=== PATIENT | male | born 1945 | race Caucasian/White ===

== ENCOUNTER 2016-08-10 15:13 | Emergency (ER) | payer OTHER, MEDICARE ==
[~2016-08-10] VITALS: Ht 167.6 cm; Wt 80.0 kg
[~2016-08-10 15:13] MED LIST: ACET-1256 PO; ADVIN25050 INH; ALBUAER2 INH; ATV1 PO; CRS10 PO; LRT5 PO; OXYC-57 PO
[2016-08-10 15:17] VITALS: TEMP 36.9; Ht 167.6 cm; Wt 80.0 kg
[2016-08-10] MEDS ORDERED: ADVIN50050 INH (15:32)
[2016-08-10] MEDS ORDERED: PRVHFAIN INH (15:32)
[2016-08-10] MEDS ORDERED: PRAV20TA PO (15:32)
[2016-08-10] MEDS ORDERED: MELO7.5T5 PO (15:32)
[2016-08-10] MEDS ORDERED: OXYCODONE HCL IR 5 MG TAB (IMMEDIATE RELEASE) PO STA (15:41)
[2016-08-10] MEDS ORDERED: DEXAMETHASONE SOD INJ 10 MG/ML VIAL IM ONE (17:30)
[2016-08-10 17:31] VITALS: BP 147/86; PULSE 67; O2SAT 95
[2016-08-10] MEDS ORDERED: OXYC1TAB3 PO (17:41)
--- NOTE | 2016-08-10 17:46 | EMERGENCY ROOM VISIT NOTE ---
History First contact with patient: 15:26 Chief Complaint: BACK PAIN Stated Complaint: BACK AND KNEE PAIN - RIGHT History of Present Illness The patient is a 71 year old male who presents to the Emergency Room with complaints of severe low back pain and pain radiating down his left leg. The patient states that the pain started 2 weeks ago. The patient has had back surgery by Dr. Park in 2011. He was having recurrent back pain in April of last year and went to Dr. Park. He had an MRI performed at [facility] and Dr. Park told him that he needed surgery. The patient did not want surgery and therefore they gave him an injection of steroids into his back. The patient states that Dr. Park told him he could have 2 more injections in his back if he needed them for pain relief. In the interim the patient started having severe right knee pain and went to see Dr. Guevara and is scheduled for a total knee replacement on September 22. The patient also states that he had a steroid injection into his right knee by Dr. Guevara. The patient states that for the past 2 weeks he has had progressive pain in the low back radiating down his left leg to his knee. He states he cannot get comfortable. He states it hurts to sit or lay down. He is very active and has not even been out of the house for the past several days due to the pain. He did not try and contact Dr. Park. The patient took one of a family member's Percocet for pain with some relief. He last had a Percocet at 8:30 this morning. Review of Systems 10 system review was performed and was negative unless stated otherwise history of present illness. Social History Smoking Status: Current Every Day Smoker Smokeless Tobacco Use: No Alcohol Use: occasionally Drug Use: none Marital Status: in relationship Housing Status: lives with significant other Occupation Status: employed Current/Historical Medications Scheduled Fluticasone Prop/Salmeterol (Advair Diskus 500-50 Mcg/Dose), 1 PUFF INH BID Meloxicam (Mobic), 15 MG PO QPM Pravastatin (Pravachol ), 10 MG PO DAILY Scheduled PRN Albuterol (Ventolin Hfa), 1 PUFF INH Q4 PRN for SOB/Wheezing Allergies Coded Allergies: Morphine (Verified Adverse Reaction, Severe, SEVERE DROP IN BP, 08/10/16) Physical Exam Vital Signs Date Time Temp Pulse Resp B/P Pulse Ox O2 Delivery O2 Flow Rate FiO2 08/10/16 17:31 67 18 147/86 95 Room Air 08/10/16 15:17 36.9 77 20 184/93 93 Room Air Physical Exam PHYSICAL EXAM: Vital Signs normal: Reviewed Nurse's notes and agree. GENERAL: 71-year-old white male appears uncomfortable secondary to back pain. MENTAL STATUS: Alert and oriented in no acute distress. LUMBAR SPINE: No gross bony abnormality noted. Patient is nontender to palpation over the spinous processes. He is tender to palpation over the left paravertebral region, right side nontender. He has limited range of motion in all directions secondary to pain. Muscle strength is 5 out of 5 bilateral lower extremities and symmetrical. Limited exam secondary to pain. Positive straight leg raise bilaterally. Medical Decision & Procedures Medications Administered Medications (Trade) Dose Ordered Sig/Crystal Route Start Time Stop Time Status Last Admin Dose Admin Oxycodone HCl (Roxicodone Immediate Rel Tab) 10 mg NOW STAT PO 08/10/16 15:41 08/10/16 15:42 DC 08/10/16 15:45 10 MG Dexamethasone Sodium Phosphate (Decadron Inj) 10 mg NOW ONCE IM 08/10/16 17:30 08/10/16 17:31 DC 08/10/16 17:30 10 MG ED Course The patient was evaluated. The patient's EMR was reviewed. The patient was given OxyIR 10 mg by mouth. I consulted Dr. Park. I spoke with Dr. Park about the patient's situation. He said it would not hinder the patient from getting subsequent steroid injections in his back if I gave him steroids today in the emergency room. He also stated that the patient has 2 options 1 is to have the knee surgery as scheduled and follow-up with Dr. Zambrano for another injection into his back in the interim. The second option would be to see Dr. Park for surgery and postpone the knee surgery. These treatments options were discussed with the patient. He states he wants a day to think about it. The patient was given Decadron 10 mg IM. The patient was reevaluated and stated the pain was now tolerable and was discharged home in stable condition. Medical Decision The patient presented with a known surgical back who has refused surgery in the past therefore no additional diagnostic imaging was performed. Impression Primary Impression: Lumbar back pain with radiculopathy affecting left lower extremity Departure Information Dispostion Home / Self-Care Condition GOOD Prescriptions Oxycodone Immediate Rel Tab (ROXICODONE IR) 5 Mg Tab 1-2 TAB PO Q4H Y for Pain, #36 TAB Prov: Fifi Pollack PA-C 08/10/16 Referrals Urbano Bethea PA-C (PCP) Forms HOME CARE DOCUMENTATION FORM, IMPORTANT VISIT INFORMATION Patient Instructions [facility] Additional Instructions Tylenol as needed for pain. Take OxyIR as directed for more severe pain. Do not drive while taking the OxyIR. If you decide to go ahead with the knee surgery as planned, call Dr. Zambrano for a steroid injection into her back. If you decide to postpone the knee surgery and consider having back surgery, call Dr. Park for an appointment.
--- NOTE | 2016-08-10 18:00 | EMERGENCY ROOM VISIT NOTE ---
ED Visit Note First contact with patient: 15:26 I did evaluate and examine this patient myself. I did guide management for the patient. I agree with the PA's assessment as discussed. Please see the PAs dictation for further details. Patient was treated with oxycodone. The case was discussed with Dr. Park for outpatient management. The patient was discharged with prescription for oxycodone.
[2016-08-19] MEDS ORDERED: ADVIN50/60 INH (13:34)
[2016-08-19] MEDS ORDERED: PRAV20TA PO (13:34)
[2016-08-19] MEDS ORDERED: SENN-65 PO (13:35)
[2016-08-26] MEDS ORDERED: RXC5 PO (08:11)
[2016-11-12] MEDS ORDERED: ACET-1256 PO (13:25)
== END 2016-08-10 18:04 | disposition home or self-care (01) ==
LOC: C.EDB 15:15 → C.EDD 18:04
DX: M54.16 Radiculopathy, lumbar region (principal); F17.200 Nicotine dependence, unspecified, uncomplicated; Z79.899 Other long term (current) drug therapy; Z88.5 Allergy status to narcotic agent

== ENCOUNTER 2016-08-24 07:22 | Inpatient (IN) | payer OTHER, MEDICARE ==
[2016-08-19 13:36] VITALS: BMI 28.0
--- NOTE | 2016-08-19 14:12 | PAT Medication Instructions ---
Service Date Aug 19, 2016. Current Home Medication List Fluticasone Prop/Salmeterol (Advair Diskus 500/50 60 Dose), 1 PUFF INH BID Meloxicam (Mobic), 15 MG PO QPM Oxycodone Immediate Rel Tab (Roxicodone Ir), 1-2 TAB PO Q4H PRN for Pain Pravastatin (Pravachol ), 10 MG PO QPM Senna/Docusate Sod (Senokot S), 1 TAB PO PRN Medication Instructions For Your Scheduled Surgery - Check with surgeon for instructions: Meloxicam (Mobic), 15 MG PO QPM - Hold the following medications the morning of surgery: Senna/Docusate Sod (Senokot S), 1 TAB PO PRN' - Take the following medications the morning of surgery with a sip of water: Fluticasone Prop/Salmeterol (Advair Diskus 500/50 60 Dose), 1 PUFF INH BID Oxycodone Immediate Rel Tab (Roxicodone Ir), 1-2 TAB PO Q4H PRN for Pain (okay to take up to 4 hours prior to surgery if needed) - Take the following medications as scheduled the night before surgery: Senna/Docusate Sod (Senokot S), 1 TAB PO PRN' Pravastatin (Pravachol ), 10 MG PO QPM Fluticasone Prop/Salmeterol (Advair Diskus 500/50 60 Dose), 1 PUFF INH BID Oxycodone Immediate Rel Tab (Roxicodone Ir), 1-2 TAB PO Q4H PRN for Pain If you have any questions please call us at [phone] (Christine Minor PA-C ) or [phone] or [phone]
[2016-08-19 14:49] LABS: BASO % 0.4 %; BASO ABS # 0.03 K/uL (0-0.2); COMPLETE YES; EOS % 2.1 %; HEMATOCRIT 41.3 % (42-52); IG% 0.1 %; LYMPH % 29.7 %; LYMPH ABS # 2.13 K/uL (1.2-3.4); MEAN CELL VOLUME 91.6 fL (80-100); MEAN CORPUSCULAR HGB CONC 36.1 g/dl (32-36); MEAN PLATELET VOLUME 9.3 fL (7.4-10.4); MONO % 8.5 %; NEUT % 59.2 %; PLATELET COUNT 190 K/uL (130-400); RED BLOOD COUNT 4.51 M/uL (4.7-6.1); WHITE BLOOD COUNT 7.18 K/uL (4.8-10.8)
--- NOTE | 2016-08-19 14:52 | DIAGNOSTIC IMAGING REPORT ---
CHEST PREADMISSION(PA/LAT) CLINICAL HISTORY: Preoperative evaluation. COMPARISON STUDY: Chest radiograph September 25, 2010. FINDINGS: Incidental note is made of an anterior cervical spine fusion. There is no pneumothorax or pleural effusion. Marked elevation/eventration of the right hemidiaphragm is unchanged since study of September 25, 2010. Cardiac size is stable. There is no evidence of pulmonary edema. IMPRESSION: 1. No acute findings. 2. Stable marked elevation/eventration of the right hemidiaphragm since study of September 25, 2010. Electronically signed by: Erlin Phelan M.D. 08/19/2016 2:51 PM Dictated Date/Time: 08/19/2016 2:50 PM
[2016-08-19 14:54] LABS: URINE APPEARANCE CLEAR (CLEAR); URINE BILIRUBIN NEG (NEG); URINE COLOR YELLOW; URINE NITRITE NEG (NEG); URINE PH 5.5 (4.5-7.5); URINE SPECIFIC GRAVITY 1.021 (1.000-1.030); UROBILINOGEN NEG (NEG)
[2016-08-19 15:01] LABS: MANUAL MICROSCOPIC REQUIRED? NO; REVIEW REQ? NO
[2016-08-19 15:09] LABS: BUN/CREATININE RATIO 21.1 (10-20); CALCIUM 9.3 mg/dl (8.5-10.1); CREATININE 0.9 mg/dl (0.60-1.40)
[~2016-08-24] VITALS: Ht 165.1 cm; Wt 74.4 kg
[2016-08-24] VITALS (10 sets, daily range): BP systolic 107–163; BP diastolic 60–83; PULSE 52–75; TEMP 36.5–37; O2SAT 94–100; Ht 165.1 cm; Wt 74.4 kg
[~2016-08-24 07:22] MED LIST changes: -ACET-1256 PO; -ADVIN25050 INH; +ADVIN50/60 INH; -ALBUAER2 INH; -ATV1 PO; +CEFAZOLIN 1000MG/55 ML D5W IV SCH; -CRS10 PO; +LACTATED RINGER'S 1000ML 1,000 ML IV SCH; -LRT5 PO; +MELO7.5T5 PO; -OXYC-57 PO; +OXYC1TAB3 PO; +PRAV20TA PO; +SENN-65 PO
--- NOTE | 2016-08-24 07:31 | History & Physical Bridge Note ---
H&P Re-Evaluation Bridge Note: I have examined the patient, reviewed the History & Physical and in the interval since the performance of the History & Physical I have noted the following changes of clinical significance: No changes noted
--- NOTE | 2016-08-24 07:32 | History and Physical ---
History & Physical Date Aug 24, 2016. Chief Complaint back and leg pain History of Present Illness The patient is a 71 year old male with complaints of Additional History Hepatic Disease: No Endocrine Disorder: No Kidney Disease: No Hypertension: No Heart Disease: No Bleeding Tendencies: No Infectious Diseases: No Allergies Coded Allergies: Acetaminophen (Unverified Allergy, Unknown, per PCP note- patient taking Oxycodone, 08/20/16) Moxifloxacin (Unverified Allergy, Unknown, rash per PCP note, 08/20/16) Oxycodone (Unverified Allergy, Unknown, per PCP note- patient taking Oxycodone, 08/20/16) Morphine (Verified Adverse Reaction, Severe, SEVERE DROP IN BP, 08/19/16) Home Medications Scheduled Fluticasone Prop/Salmeterol (Advair Diskus 500/50 60 Dose), 1 PUFF INH BID Meloxicam (Mobic), 15 MG PO QPM Pravastatin (Pravachol ), 10 MG PO QPM Senna/Docusate Sod (Senokot S), 1 TAB PO PRN Scheduled PRN Oxycodone Immediate Rel Tab (Roxicodone Ir), 1-2 TAB PO Q4H PRN for Pain Physical Examination Skin: warm/dry, no rash Eyes: normal inspection, EOMI, sclerae normal ENT: normal ENT inspection, pharynx normal Head: normocephalic, atraumatic Neck: supple, no adenopathy, trachea midline Respiratory/Chest: lungs clear, normal breath sounds, no respiratory distress Cardiovascular: regular rate, rhythm, no edema, no murmur Abdomen / GI: normal bowel sounds, non tender Back: normal inspection Extremities: normal inspection, normal range of motion Neurologic/Psych: no motor/sensory deficits, alert, normal reflexes, oriented x 3 Diagnosis spinal stenosis Plan of Treatment removal inst L4-S1 decompression fusion L2_4
[2016-08-24] MEDS ORDERED: FENTANYL CITRATE INJ 50 MCG/1 ML 2 ML VIAL ONE ×2 (08:36→08:37)
[2016-08-24] MEDS ORDERED: MIDAZOLAM HCL 1 MG/ML 2ML VIAL ONE (08:37)
[2016-08-24] MEDS ORDERED: HYDROmorphone INJ 1 MG/ML SYR IV PRN (10:45)
[2016-08-24] MEDS ORDERED: MEPERIDINE HCL 25 MG/ML CARP IV PRN (10:45)
[2016-08-24] MEDS ORDERED: LABETALOL HCL IV 5 MG/ML 20ML IV PRN (10:45)
[2016-08-24] MEDS ORDERED: ONDANSETRON INJ 2 MG/ML 2 ML VIAL IV PRN (10:45)
[2016-08-24] MEDS ORDERED: EpHEDrine SULFATE INJ 50 MG/ML AMP IV PRN (10:45)
[2016-08-24] MEDS ORDERED: ATROPINE SULFATE 0.1 MG/ML 5ML SYR IV PRN (10:45)
[2016-08-24] MEDS ORDERED: ONDANSETRON INJ 2 MG/ML 2 ML VIAL ONE (11:16)
[2016-08-24] MEDS ORDERED: LIDOCAINE HCL 2% 2 ML VIAL (20MG/ML) ONE (11:16)
[2016-08-24] MEDS ORDERED: PROPOFOL IV EMULSION 10 MG/ML 20 ML VIAL IV ONE (11:16)
[2016-08-24] MEDS ORDERED: GLYCOPYRROLATE INJ 0.2 MG/ML VIAL ONE (11:16)
[2016-08-24] MEDS ORDERED: LARYING-O-JET KIT (LTA) EXT ONE ×2 (11:16)
[2016-08-24] MEDS ORDERED: NEOSTIGMINE METHYLSULFATE 5 MG/5 ML SYR ONE (11:16)
[2016-08-24] MEDS ORDERED: EpHEDrine SULFATE 50MG/5ML SYR ONE (11:16)
[2016-08-24] MEDS ORDERED: DEXAMETHASONE SOD INJ 4 MG/ML VIAL ONE (11:16)
[2016-08-24] MEDS ORDERED: ROCURONIUM BROMIDE 10 MG/ML 5 ML VIAL ONE (11:16)
[2016-08-24] MEDS ORDERED: CEFAZOLIN SOD 1 GM VIAL ONE (11:16)
[2016-08-24] MEDS ORDERED: HYDROmorphone INJ 2 MG/ML SYR/VIAL ONE (11:17)
[2016-08-24] MEDS ORDERED: BUPIVACAINE/EPINEPHRINE 0.5% MPF 1:200,000 30 ML VIAL INJ ONE (12:11)
[2016-08-24] MEDS ORDERED: BACITRACIN 50000 UNIT VIAL IR ONE (12:11)
[2016-08-24] MEDS ORDERED: FLOSEAL HEMOSTATIC MATRIX 10ML TOP ONE (12:58)
--- NOTE | 2016-08-24 12:58 | DIAGNOSTIC IMAGING REPORT ---
Lumbar spine LUMBAR SPINE 2 OR 3 VIEW CLINICAL HISTORY: L2-L4 DECOMPRESSION/FUSION L4-S1 HARDWARE REMOVAL hardware removal TECHNIQUE: Image intensifier COMPARISON STUDY: None FINDINGS: Findings of a posterior laminectomy and fusion from L2 through L4. Disc spaces are present from L3 through S1. IMPRESSION: Image intensifier views of the low lumbar spine for intraoperative guidance Electronically signed by: Russell Pollack M.D. 08/24/2016 12:57 PM Dictated Date/Time: 08/24/2016 12:55 PM
[2016-08-24] MEDS ORDERED: SODIUM CHLORIDE 0.9% 1000ML 1,000 ML IV SCH (13:07)
--- NOTE | 2016-08-24 13:07 | [facility] Post Operative Brief Note ---
Immediate Operative Summary Operative Date Aug 24, 2016. Pre-Operative Diagnosis Spinal Stenosis Post-Operative Diagnosis Spinal Stenosis Procedure(s) Performed Hardware removal L4-S1, Decompression/Fusion L2-L4, Interbody Cage at L3-L4, Use of Infuse Surgeon Dr. Park Retort Engineer Surgeon(s) none Estimated Blood Loss 200 cc Findings stenosis Specimens A: Explanted hardware
[2016-08-24] MEDS ORDERED: hydrOXYzine HCL 25 MG TAB PO PRN (13:15)
[2016-08-24] MEDS ORDERED: MAGNESIUM HYDROXIDE SUSP 30 ML UDC PO PRN ×2 (13:15)
[2016-08-24] MEDS ORDERED: LORAZEPAM 0.5 MG TAB PO PRN (13:15)
[2016-08-24] MEDS ORDERED: LORAZEPAM INJ 0.5 MG in SYRINGE 0.75 ML IV PRN (13:15)
[2016-08-24] MEDS ORDERED: BISACODYL 10 MG SUPP PR PRN ×2 (13:15)
[2016-08-24] MEDS ORDERED: DO NOT ADMINISTER FLU VACCINE PRN ×3 (13:15)
[2016-08-24] MEDS ORDERED: ALUMINUM/MAGNESIUM SUSP 30 ML UDC PO PRN (13:15)
[2016-08-24] MEDS ORDERED: SOD PHOSPHATE/SOD BIPHOSPHATE ENEMA 132 ML BTL PR PRN ×2 (13:15)
[2016-08-24] MEDS ORDERED: FAMOTIDINE 20 MG TAB PO PRN (13:15)
[2016-08-24] MEDS ORDERED: METOCLOPRAMIDE HCL INJ 5 MG/ML 2 ML VIAL IV PRN (13:15)
[2016-08-24] MEDS ORDERED: PROMETHAZINE HCL INJ 12.5 MG in SODIUM CHLORIDE 0.9% 50ML 50 ML IV PRN (13:15)
[2016-08-24] MEDS ORDERED: NALOXONE HCL 0.4 MG/1 ML VIAL/CARP IV PRN ×3 (13:15)
[2016-08-24] MEDS ORDERED: DO NOT ADMINISTER PNEUMOCOCCAL VACCINE PRN ×2 (13:15)
[2016-08-24] MEDS ORDERED: HYDROmorphone HCL 0.5MG/ML 50 ML CASSETTE ONE (13:21)
[2016-08-24] MEDS: HYDROmorphone HCL 0.5MG/ML 50 ML CASSETTE IV PRN ×4 (13:30→23:03)
[2016-08-24] MEDS: FENTANYL CITRATE INJ 50 MCG/1 ML 2 ML VIAL IV PRN ×2 (13:33→13:43)
--- NOTE | 2016-08-24 14:20 | Anesthesiology Progress Note ---
Anesthesia Post Op Note Date & Time Aug 24, 2016 at 14:20 Vital Signs Pain Intensity: 4 Vital Signs Past 12 Hours Date Time Temp Pulse Resp B/P Pulse Ox O2 Delivery O2 Flow Rate FiO2 08/24/16 14:15 60 13 119/72 95 Nasal Cannula 4 08/24/16 14:05 36.1 60 19 114/66 95 Nasal Cannula 4 08/24/16 13:55 58 14 101/62 93 Nasal Cannula 4 08/24/16 13:45 63 12 81/53 95 Nasal Cannula 4 08/24/16 13:35 61 15 116/62 96 Mask 10 08/24/16 13:25 52 12 121/63 99 Mask 10 08/24/16 13:15 36.2 50 12 130/72 98 Mask 10 08/24/16 08:03 36.8 60 20 163/83 95 Room Air Notes Mental Status: alert / awake / arousable, participated in evaluation Pt Amnestic to Procedure: Yes Nausea / Vomiting: adequately controlled Pain: adequately controlled Airway Patency, RR, SpO2: stable & adequate BP & HR: stable & adequate Hydration State: stable & adequate Anesthetic Complications: no major complications apparent
[2016-08-24] MEDS: LACTATED RINGER'S 1000ML 1,000 ML IV SCH ×2 (14:27→20:39)
--- NOTE | 2016-08-24 15:42 | OPERATIVE REPORT ---
DATE OF OPERATION: 08/24/2016 PREOPERATIVE DIAGNOSIS: Spinal stenosis. POSTOPERATIVE DIAGNOSIS: Same. PROCEDURES PERFORMED: 1. Removal of posterior instrumentation, L4-L5 and L5-S1. 2. Exploration of fusion, L4-L5 and L5-S1. 3. Lumbar decompression, medial facetectomies, and foraminotomies, L2-L3 and L3-L4. 4. Posterior spinal fusion, L2-L3 and L3-L4. 5. Placement of posterior segmental instrumentation using Orthros rods and screws, L2-L3 and L3-L4. 6. Placement of interbody fusion, L3-L4. 7. Placement of PEEK cage 12 x 22 mm at L3-L4. 8. Placement of locally harvested morcellized autograft in the posterior gutters. 9. Placement of Infuse collagen sponge and Mastergraft in the posterior gutters and DBM in the interbody space. SURGEON: Dr. Govind Park. SLEEVE SETTER LOCKSTITCH: None. ANESTHESIA: General. DISPOSITION: The patient awakened and taken to PACK in stable condition. HISTORY OF PATIENT'S PROBLEMS: A 71-year-old male who presents with above-mentioned diagnosis. After failing an extensive course of nonoperative care, he elected to undergo the above-mentioned procedures. Risks, benefits, pros, cons, and alternatives were outlined in detail preoperatively. DESCRIPTION OF PROCEDURE: The patient was met with preoperatively, case discussed and all questions were addressed. At that point, the patient was taken back to operative suite and after undergoing successful general intubation by the department of anesthesia, he was placed in prone position on Wm table atop a Adarsh frame. All bony prominences were well padded and the eyes were inspected to ensure there was no external pressure placed upon them. At this point, lumbar spine was prepped and draped in normal sterile fashion. Sharp dissection with the assistance of Bovie cautery was performed down to and exposing the lamina and transverse processes of L2, L3, and instrumentation at L3, L4, L5 and S1 levels bilaterally. I then proceeded with the hardware bilaterally exploring the fusion mass and noting it to be intact. I then performed a complete laminectomy of L3 and L2 with caudocephalad fashion addressing severe lateral recess stenosis, particularly foraminal disease of L3 on the left. After this was complete, pedicle screws were then placed in L2, L3, and L4 bilaterally with assistance of fluoroscopy and the appropriately sized corinna provisionally placed. Through a transforaminal approach on the left, a complete diskectomy was performed. Endplates were curetted to subcortical bleeding bone and a 12 x 22 mm PEEK cage filled with DBM tapped into position. Rods were then locked into final position bilaterally and transverse processes of L2, L3, and L4 burred to subcortical bleeding bone. Infuse collagen sponge combined with Mastergraft and locally harvested morselized autograft was placed in the posterior gutters. A 7 flat RENNY drain was inserted. Incision was closed with 1-0 Vicryl in the fascia, 2-0 Vicryl subcutaneously, and 4-0 Monocryl for final skin closure. Steri-Strips and sterile dressing placed. The patient was awakened and taken to PACU in stable condition. I attest to the content of the Intraoperative Record and any orders documented therein. Any exceptio ns are noted below.
[2016-08-24] MEDS: CEFAZOLIN IV 2,000 MG in DEXTROSE 5% 50ML 50 ML IV SCH (17:37)
[2016-08-24] MEDS: DEXAMETHASONE INJ 6 MG in SYRINGE 0 ML IV SCH (18:34)
[2016-08-24] MEDS: ONDANSETRON INJ 2 MG/ML 2 ML VIAL IV PRN (18:39)
[2016-08-24] MEDS: FLUTICASONE/SALMETEROL (ADVAIR) 500/50 INH 14 PUFF INH SCH (20:32)
[2016-08-24] MEDS: DOCUSATE SODIUM/SENNA 50/8.6MG TAB PO SCH (20:38)
[2016-08-24] MEDS: PRAVASTATIN SOD 20 MG TAB PO SCH (20:38)
[2016-08-24] MEDS ORDERED: DOCUSATE SODIUM/SENNA 50/8.6MG TAB PO SCH (21:00)
[2016-08-25] VITALS (9 sets, daily range): BP systolic 96–132; BP diastolic 50–72; PULSE 64–84; TEMP 36.6–36.9; O2SAT 90–98
[2016-08-25] MEDS: CEFAZOLIN IV 2,000 MG in DEXTROSE 5% 50ML 50 ML IV SCH (02:29)
[2016-08-25] MEDS: LACTATED RINGER'S 1000ML 1,000 ML IV SCH (02:29)
[2016-08-25] MEDS: DEXAMETHASONE INJ 6 MG in SYRINGE 0 ML IV SCH ×2 (02:29→11:11)
[2016-08-25 05:48] LABS: COMPLETE YES; HEMATOCRIT 30.7 % (42-52); IG% 0.2 %; LYMPH % 7.2 %; MEAN CORPUSCULAR HEMOGLOBIN 32.3 pg (25-34); MEAN CORPUSCULAR HGB CONC 35.8 g/dl (32-36); MEAN PLATELET VOLUME 9.5 fL (7.4-10.4); MONO % 2.3 %; NEUT % 90.3 %; PLATELET COUNT 174 K/uL (130-400); RED BLOOD COUNT 3.41 M/uL (4.7-6.1); WHITE BLOOD COUNT 12.51 K/uL (4.8-10.8)
[2016-08-25] MEDS ORDERED: HYDROmorphone INJ 0.5 MG/0.5 ML SYR IV PRN (06:00)
[2016-08-25] MEDS ORDERED: HYDROCODONE/ACETAMOPHEN 5/325MG TAB PO PRN (06:00)
[2016-08-25] MEDS ORDERED: DC PCA SCH (06:00)
[2016-08-25 06:16] LABS: BUN/CREATININE RATIO 19.6 (10-20); CALCIUM 7.9 mg/dl (8.5-10.1); CREATININE 0.84 mg/dl (0.60-1.40); POTASSIUM 4.3 mmol/L (3.5-5.1)
[2016-08-25] MEDS ORDERED: NURSING VERBAL MED ORDER ONE (06:45)
[2016-08-25] MEDS: FLUTICASONE/SALMETEROL (ADVAIR) 500/50 INH 14 PUFF INH SCH ×2 (07:40→19:10)
[2016-08-25] MEDS: ONDANSETRON INJ 2 MG/ML 2 ML VIAL IV PRN (07:46)
[2016-08-25] MEDS ORDERED: HYDROmorphone INJ 1 MG/ML SYR IV PRN (08:00)
[2016-08-25] MEDS ORDERED: OPTIRAY 320 IV PRN (09:00)
--- NOTE | 2016-08-25 09:01 | Medical Consult ---
Consultation Date of Consultation: Aug 25, 2016. Attending Physician: Govind Park D.O. History of Present Illness This is a 71 yo M who underwent L2-L4 spinal decompression and fusion/ L4-S1 hardware removal on 08/25/[address] Govind Garzon, known COPD, chronic tobacco abuse, hyperlipidemia, and gout who developed chest discomfort and shortness of breath at rest around 0800 today. Medicine was consulted to evaluate for chest pain. The patient has not been on anticoagulation since spinal surgery yesterday and recieved a dose of Dilaudid 1 mg IV prior to my evaluation. While at bedside the patient reports chest discomfort but that he feels he needs to cough, and cannot get out sputum. He denies acute chest pain. He is wearing 3 L O2 via NC and feels better with this, prior to supplemental o2 he was 90% on room air. Pt admits to feeling a little lightheaded with deep breaths. He also admits to feeling nauseous this morning but that this is currently resolved. He denies palpitations, headache, weakness, dizziness. Past Medical/Surgical History Medical Problems: (1) Lumbar back pain with radiculopathy affecting left lower extremity Status: Acute Social History Smoking Status: Current Every Day Smoker (Smokes 1 ppd since age 29.) Drug Use: none Marital Status: in relationship Housing Status: lives with significant other Occupation Status: employed Allergies Coded Allergies: Moxifloxacin (Unverified Allergy, Unknown, rash per PCP note, 08/24/16) Oxycodone (Unverified Allergy, Unknown, per PCP note- patient taking Oxycodone, 08/24/16) Morphine (Verified Adverse Reaction, Severe, SEVERE DROP IN BP, 08/24/16) Current Inpatient Medications Current Inpatient Medications Medications (Trade) Dose Ordered Sig/Crystal Route Start Time Stop Time Status Last Admin Dose Admin Dexamethasone Sodium Phosphate 6 mg/Syringe 1.5 ml @ 1 mls/min Q8H IV 08/24/16 19:00 08/25/16 11:02 08/25/16 02:29 1 MLS/MIN Promethazine HCl/ Sodium Chloride (Phenergan Inj/ Nss 50ml) 50.5 ml @ 202 mls/hr Q6H PRN IV 08/24/16 13:15 09/23/16 13:14 Ondansetron HCl (Zofran Inj) 4 mg Q6H PRN IV 08/24/16 13:15 09/23/16 13:14 08/25/16 07:46 4 MG Metoclopramide HCl (Reglan Inj) 10 mg Q6H PRN IV 08/24/16 13:15 09/23/16 13:14 Lorazepam 0.5 mg 0.5 mg Q8H PRN PO 08/24/16 13:15 09/23/16 13:14 Lorazepam/Syringe (Ativan Inj/ Syringe) 1 ml @ 1 mls/min Q8H PRN IV 08/24/16 13:15 09/23/16 13:14 Pneumococcal Polysaccharide Vaccine 1 ea PRN PRN N/A 08/24/16 13:15 09/23/16 13:14 Influenza Virus Vacc Triv Types A&B 1 ea PRN PRN N/A 08/24/16 13:15 09/23/16 13:14 Bisacodyl (Dulcolax Supp) 10 mg DAILY PRN HI 08/24/16 13:15 09/23/16 13:14 Magnesium Hydroxide (Milk Of Magnesia Susp) 30 ml DAILY PRN PO 08/24/16 13:15 09/23/16 13:14 Acetaminophen/ Hydrocodone Bitart ([place] 5/325 Tab) 1-2 tabs prn moder... Q4H PRN PO 08/25/16 06:00 09/08/16 05:59 Naloxone HCl (Narcan Inj) 0.1 mg Q5M PRN IV 08/24/16 13:15 09/23/16 13:14 Senna/Docusate Sodium (Senokot S Tab) 2 tab HS PO 08/24/16 21:00 09/23/16 20:59 08/24/16 20:38 2 TAB Sodium Biphosphate/ Sodium Phosphate (Fleet Enema) 132 ml ONE PRN HI 08/24/16 13:15 09/23/16 13:14 Hydroxyzine HCl (Vistaril Tab) 25 mg Q8H PRN PO 08/24/16 13:15 09/23/16 13:14 Al Hydroxide/Mg Hydroxide (Maalox Susp) 30 ml Q6H PRN PO 08/24/16 13:15 09/23/16 13:14 Famotidine (Pepcid Tab) 20 mg Q12 PRN PO 08/24/16 13:15 09/23/16 13:14 Diphenhydramine HCl (Benadryl Cap) 25 mg Q6H PRN PO 08/24/16 13:15 09/23/16 13:14 Salmeterol Xinafoate/ Fluticasone (Advair Diskus 500/50 Inh) 1 puff BID INH 08/24/16 21:00 09/23/16 20:59 08/25/16 07:40 1 PUFF Pravastatin Sodium (Pravachol Tab) 10 mg QPM PO 08/24/16 21:00 09/23/16 20:59 08/24/16 20:38 10 MG Polyethylene (Miralax Powder Packet) 17 gm Q6 PO 08/26/16 06:00 09/25/16 05:59 Bisacodyl (Dulcolax Supp) 10 mg DAILY PRN HI 08/24/16 13:15 09/23/16 13:14 Magnesium Hydroxide (Milk Of Magnesia Susp) 30 ml DAILY PRN PO 08/24/16 13:15 09/23/16 13:14 Oxycodone HCl (Roxicodone Immediate Rel Tab) 5-10mg prn moderate to sev... Q4H PRN PO 08/25/16 06:00 09/08/16 05:59 Hydromorphone HCl (Dilaudid Inj) 0.5-1mg prn moder... Q3H PRN IV 08/25/16 08:00 09/08/16 07:59 08/25/16 08:01 1 MG Review of Systems Constitutional: No chills, No fever, No sweats Eyes: No diplopia ENT: No dental problems, No sore throat, No tinnitus Respiratory: + dyspnea at rest, + shortness of breath, No cough, No wheezing Cardiovascular: No orthopnea, No palpitations Abdomen: + nausea, No constipation, No diarrhea, No pain, No vomiting Musculoskeletal: No joint pain Neurologic: + numbness/tingling (Down into RLE but improved since surgery yesterday) Psychiatric: + anxiety Integumentary: No rash Physical Exam Date Time Temp Pulse Resp B/P Pulse Ox O2 Delivery O2 Flow Rate FiO2 08/25/16 08:01 36.9 70 19 132/72 98 Room Air 08/25/16 03:36 36.8 64 16 96/50 94 Room Air 08/24/16 23:49 Room Air 08/24/16 22:59 36.9 68 16 107/60 94 Room Air 08/24/16 20:41 68 125/76 98 Nasal Cannula 2.0 08/24/16 19:25 36.8 60 16 118/73 100 Nasal Cannula 2.0 08/24/16 17:34 37.0 75 16 135/68 100 Nasal Cannula 2.0 08/24/16 16:25 36.8 75 16 110/68 98 Nasal Cannula 2.0 08/24/16 15:25 36.5 55 15 109/65 97 Nasal Cannula 3.0 08/24/16 15:20 97 Nasal Cannula 3.0 08/24/16 14:55 36.7 52 16 124/77 97 Nasal Cannula 2.0 08/24/16 14:25 36.8 60 12 122/66 97 Nasal Cannula 2.0 08/24/16 14:25 Nasal Cannula 2.0 08/24/16 14:25 97 Nasal Cannula 2.0 08/24/16 14:15 60 13 119/72 95 Nasal Cannula 4 08/24/16 14:05 36.1 60 19 114/66 95 Nasal Cannula 4 08/24/16 13:55 58 14 101/62 93 Nasal Cannula 4 08/24/16 13:45 63 12 81/53 95 Nasal Cannula 4 08/24/16 13:35 61 15 116/62 96 Mask 10 08/24/16 13:25 52 12 121/63 99 Mask 10 08/24/16 13:15 36.2 50 12 130/72 98 Mask 10 General Appearance: WD/WN, no apparent distress Head: normocephalic Eyes: PERRL, EOMI ENT: hearing grossly normal, pharynx normal Neck: supple, no JVD Respiratory/Chest: chest non-tender, lungs clear, normal breath sounds, no respiratory distress, no accessory muscle use Cardiovascular: regular rate, rhythm, no murmur, normal peripheral pulses Abdomen/GI: normal bowel sounds, non tender, soft Genitourinary - Male: + pertinent finding (smalls catheter in place, draining clear yellow urine) Back: + pertinent finding (Lumbar dressing in place, appears c/d/i, no erythema surrounding bandage, RENNY drain in place with ~ 50mL out. ) Extremities/Musculoskelatal: no calf tenderness, no pedal edema, normal range of motion, + pertinent finding (Strength BLE 5/5 and equal. ) Neurologic/Psych: alert, oriented x 3 Skin: normal color, warm/dry Laboratory Results Last 24 Hours Test 08/25/16 05:35 08/25/16 08:09 White Blood Count 12.51 K/uL Red Blood Count 3.41 M/uL Hemoglobin 11.0 g/dL Hematocrit 30.7 % Mean Corpuscular Volume 90.0 fL Mean Corpuscular Hemoglobin 32.3 pg Mean Corpuscular Hemoglobin Concent 35.8 g/dl Platelet Count 174 K/uL Mean Platelet Volume 9.5 fL Neutrophils (%) (Auto) 90.3 % Lymphocytes (%) (Auto) 7.2 % Monocytes (%) (Auto) 2.3 % Eosinophils (%) (Auto) 0.0 % Basophils (%) (Auto) 0.0 % Neutrophils # (Auto) 11.29 K/uL Lymphocytes # (Auto) 0.90 K/uL Monocytes # (Auto) 0.29 K/uL Eosinophils # (Auto) 0.00 K/uL Basophils # (Auto) 0.00 K/uL RDW Standard Deviation 43.2 fL RDW Coefficient of Variation 13.2 % Immature Granulocyte % (Auto) 0.2 % Immature Granulocyte # (Auto) 0.03 K/uL Sodium Level 141 mmol/L Potassium Level 4.3 mmol/L Chloride Level 107 mmol/L Carbon Dioxide Level 25 mmol/L Anion Gap 9.0 mmol/L Blood Urea Nitrogen 16 mg/dl Creatinine 0.84 mg/dl Est Creatinine Clear Calc Drug Dose 74.9 ml/min Estimated GFR () 101.4 Estimated GFR (Non- 87.5 BUN/Creatinine Ratio 19.6 Random Glucose 143 mg/dl Calcium Level 7.9 mg/dl Assessment & Plan This is a 71 yo M who underwent L2-L4 spinal decompression and fusion/ L4-S1 hardware removal on 08/25/[address] Govind Park, known COPD, chronic tobacco abuse, hyperlipidemia, and gout who developed chest discomfort and shortness of breath at rest around 0800 today. Medicine was consulted to evaluate for chest pain. Chest Pain / shortness of breath - POD #1 for spinal decompression and fusion / L4-S1 hardware removal by Dr. Govind Park - EKG was reviewed and appears the same compared to yesterday, sinus diana without acute ischemic or ST segment changes - Ordered serial troponins, will follow - Labs reviewed - Hgb = 11.0 down from 14.9, expect blood loss s/p surgery. RENNY drain in place with ~50 mL out currently. - Will order CT angio to r/o PE with acute SOB and surgery yesterday - pt not on chemical anticoagulation- Pt has had SCDs on for DVT - Now requiring 3L O2 via NC and normally does not wear O2 at baseline - Received dilaudid 1 mg with improvement of chest pain. Non-reproducible pain on exam - Pt only has a [address], will need at least a 18 for contrast - communicated with nursing. COPD - Will order stat duoneb and flutter valve - Smokes 1 ppd since age 29 - cessation encouraged - Can consider nicotine patch later after r/o of cardiac involvement. 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 Disposition: From home. CODE STATUS: FULL CODE Reviewed: Pt Seen/Exam by Me, DEEDEE Notes, Prior Records, Labs, RAD, EKG History AGree with above PA Consultation/HPI/PMH/PSH/MEDS/ALL/ROS. Pt completely symptoms free and off O2 now. Describes the CP he had earlier today as a burning sharp pain that sarted in his epigastric region and went up into his chest. No previous cardiac issues. Had a stress test many years ago that he was told was normal. He does have COPD and is on Advair at home and here. No further problems. CTA chest reviewed with him and was neg for PE or any other acute process. All Other Systems: Reviewed and Negative General Appearance: WD/WN, no apparent distress Eye Exam: bilateral eye normal inspection Ears, Nose, Throat: hearing grossly normal Neck: trachea midline Respiratory: lungs clear, normal breath sounds, no respiratory distress, no accessory muscle use Cardiovascular: regular rate, rhythm, no edema, no gallop, no murmur Gastrointestinal: normal bowel sounds, non tender, soft, no organomegaly, no pulsatile mass Extremities: non-tender, normal inspection, no pedal edema, no calf tenderness Neurologic/Psychiatric: alert, normal mood/affect, oriented x 3 Skin Characteristics: normal color, warm/dry Assessment/Plan AGree with above PA COnsultation, A/P with the following exceptions/additions: Chest pain-atypical, resolved on own, noncardiac, sounds like GERD. Trop neg x 2 now, ECG without ischemic changes. CTA neg for PE or dissection. Was hypoxic at 90% at the time and now off O2 and POx 94% which is likely his baseline given COPD and continued smoking. -will trial Zantac 150mg po qhs -continue Advair, nebs prn, IS -follow third troponin but likely to be negative -strongly encouraged smoking cessation -will follow
--- NOTE | 2016-08-25 10:08 | DIAGNOSTIC IMAGING REPORT ---
CT ANGIOGRAM OF THE CHEST CLINICAL HISTORY: Dyspnea. COMPARISON STUDY: Chest radiograph dated 08/19/2016. TECHNIQUE: Following the IV administration of 93 cc of Optiray 320, CT angiogram of the chest was performed from the upper abdomen to the thoracic inlet utilizing the pulmonary embolus protocol. Images are reviewed in the axial, sagittal, and coronal planes. 3-D MIPS images are created and assessed. IV contrast was administered without complication. The examination is significantly degraded by streak artifact from the patient's arms which could not be elevated above the chest as well as by motion artifact. CT DOSE: 579.42 mGycm FINDINGS: Thyroid: Imaged portions of the thyroid gland are normal in size and attenuation. Thoracic aorta: There is mild atherosclerotic calcification of the thoracic aorta, which is normal in caliber and demonstrates standard 3-vessel arch anatomy. No dissection is seen. Pulmonary vasculature: The pulmonary trunk is normal in caliber. There are no filling defects identified in main, lobar, or segmental pulmonary branches to suggest pulmonary embolus. Heart: The heart is enlarged and without pericardial effusion. There are coronary artery calcifications. Lungs and pleural spaces: Evaluation of the lung parenchyma is degraded by respiratory motion artifact. There is no airspace consolidation typical for pneumonia or pleural effusion. Dependent atelectasis is noted and there is elevation of the right hemidiaphragm. Foci of linear atelectasis are seen in the upper lobes. The trachea and central airways are clear. Mediastinum: There is no mediastinal lymphadenopathy. Erika: Clear. Axillae: There is no axillary lymphadenopathy. Upper abdomen: Scattered hepatic cysts are identified. The largest measures 2.6 cm and is noted in the left lobe. A tiny hiatal hernia is identified. Partially visualized upper abdominal viscera is otherwise within normal limits. Skeletal structures: The skeletal structures are osteopenic. No lytic or blastic bony lesions are seen. Degenerative change is noted throughout the thoracic spine and in the shoulders. Fusion hardware is seen in the lower cervical spine. There are foci of subcutaneous gas in the lower back posteriorly, likely related to recent surgery. IMPRESSION: 1. Streak and motion artifact degraded examination. 2. There is no evidence of pulmonary embolus in the main, lobar, or segmental pulmonary arteries. 3. There is no airspace consolidation or pleural effusion. Dependent atelectasis is observed. 4. Cardiomegaly. 5. Additional findings as above. Electronically signed by: Gerardo Mackey M.D. 08/25/2016 10:07 AM Dictated Date/Time: 08/25/2016 10:01 AM
[2016-08-25] MEDS: OXYCODONE HCL IR 5 MG TAB (IMMEDIATE RELEASE) PO PRN ×2 (10:22→18:45)
[2016-08-25] MEDS: ALBUT/IPRATROP 3MG/0.5MG NEB 3 ML VIAL INH SCH ×3 (11:28→20:16)
[2016-08-25] MEDS: NICOTINE 14 MG/24 HR TDSY TD SCH (13:25)
--- NOTE | 2016-08-25 13:51 | Anesthesiology Progress Note ---
Anesthesia Post Op Note Date & Time Aug 25, 2016 at 13:51 Vital Signs Pain Intensity: 5.0 Vital Signs Past 12 Hours Date Time Temp Pulse Resp B/P Pulse Ox O2 Delivery O2 Flow Rate FiO2 08/25/16 12:18 36.6 84 18 124/70 92 Room Air 08/25/16 11:29 80 16 94 Room Air 08/25/16 09:51 98 Nasal Cannula 2.0 08/25/16 08:01 36.9 70 19 132/72 98 Room Air 08/25/16 07:35 90 Room Air 08/25/16 03:36 36.8 64 16 96/50 94 Room Air Notes Mental Status: alert / awake / arousable, participated in evaluation Pt Amnestic to Procedure: Yes Nausea / Vomiting: adequately controlled Pain: adequately controlled Airway Patency, RR, SpO2: stable & adequate BP & HR: stable & adequate Hydration State: stable & adequate Anesthetic Complications: no major complications apparent
--- NOTE | 2016-08-25 16:25 | PROGRESS NOTE ---
DATE: 08/25/2016 HISTORY OF PRESENT ILLNESS: Mr. Mcfarlane ____ improved. He had some chest discomfort this morning. I ordered a CAT scan which was negative. EKG within normal limits. Today, he has back pain only. Leg symptoms improved. Vital signs stable. T-max 36.9. RENNY drained 230 mL. Hematocrit stable at 30.7. PHYSICAL EXAMINATION: On exam, he has good strength to testing. Appears comfortable. ASSESSMENT: Status post lumbar decompression and fusion. PLAN: At this time, we will continue physical therapy, assess his progress, and possible discharge tomorrow or Tuesday.
[2016-08-25] MEDS: PRAVASTATIN SOD 20 MG TAB PO SCH (21:17)
[2016-08-25] MEDS: RANITIDINE HCL 150 MG TAB PO SCH (21:18)
[2016-08-25] MEDS: DOCUSATE SODIUM/SENNA 50/8.6MG TAB PO SCH (21:18)
[2016-08-26] MEDS ORDERED: POLYETHYLENE (MIRALAX) 17 GM PACK PO SCH (06:00)
[2016-08-26] MEDS: POLYETHYLENE (MIRALAX) 17 GM PACK PO SCH ×4 (06:00→23:46)
[2016-08-26] MEDS: OXYCODONE HCL IR 5 MG TAB (IMMEDIATE RELEASE) PO PRN ×5 (06:07→19:48)
[2016-08-26 06:54] LABS: COMPLETE YES; IG% 0.5 %; LYMPH % 15.1 %; LYMPH ABS # 1.76 K/uL (1.2-3.4); MEAN CELL VOLUME 90.3 fL (80-100); MEAN CORPUSCULAR HEMOGLOBIN 31.8 pg (25-34); MEAN CORPUSCULAR HGB CONC 35.2 g/dl (32-36); MEAN PLATELET VOLUME 9.9 fL (7.4-10.4); MONO % 6.6 %; NEUT % 77.8 %; PLATELET COUNT 173 K/uL (130-400); RED BLOOD COUNT 2.99 M/uL (4.7-6.1); WHITE BLOOD COUNT 11.64 K/uL (4.8-10.8)
[2016-08-26 07:22] LABS: BUN/CREATININE RATIO 17.5 (10-20); CALCIUM 8.2 mg/dl (8.5-10.1); CREATININE 0.79 mg/dl (0.60-1.40); MAGNESIUM 2.1 mg/dl (1.8-2.4); POTASSIUM 3.8 mmol/L (3.5-5.1)
[2016-08-26 07:23] VITALS: BP 128/73; PULSE 58; TEMP 36.7; O2SAT 98
[2016-08-26 07:57] VITALS: PULSE 66; O2SAT 96
[2016-08-26] MEDS: ALBUT/IPRATROP 3MG/0.5MG NEB 3 ML VIAL INH SCH ×4 (07:57→19:49)
[2016-08-26] MEDS: FLUTICASONE/SALMETEROL (ADVAIR) 500/50 INH 14 PUFF INH SCH ×2 (07:59→21:03)
[2016-08-26] MEDS: NICOTINE 14 MG/24 HR TDSY TD SCH (08:00)
--- NOTE | 2016-08-26 08:10 | Hospitalist Progress Note ---
Hospitalist Progress Note Date of Service Aug 26, 2016. (Lore Upton PA-C) Subjective Pt evaluation today including: conversation w/ patient, physical exam, chart review, lab review, review of studies, review of inpatient medication list Pain: Moderate, low back PO Intake: Good Voiding: no voiding problems The patient was seen and examined this morning. Pt reports breathing fine this morning. He hasn't had a cigarette for 4 days, and is tolerating the nicotine patch. Pt notes his low back is sore, sides are sore and that he has some sharp pain when he starts to lean forward. Pt has been working with PT/OT and says once he starts walking the pain improves. Pt has not had a BM for 2-3 days. Willing to try stool softener and miralax. He denies substernal burning sensation or indigestion this am. Denies chest pain, shortness of breath, cough , wheeze, fever, chills. All Other Systems: Reviewed and Negative (other than in HPI) (Lore Upton PA-C) Objective Vital Signs Date Time Temp Pulse Resp B/P Pulse Ox O2 Delivery O2 Flow Rate FiO2 08/26/16 07:57 66 16 96 Room Air 08/26/16 07:23 36.7 58 16 128/73 98 Room Air 08/25/16 23:46 36.7 65 16 116/65 96 Room Air 08/25/16 23:30 Room Air 08/25/16 20:16 79 16 95 Room Air 08/25/16 16:00 Room Air 08/25/16 15:30 36.6 68 18 111/56 94 Room Air 08/25/16 12:18 36.6 84 18 124/70 92 Room Air 08/25/16 11:29 80 16 94 Room Air 08/25/16 09:51 98 Nasal Cannula 2.0 (Lore Upton PA-C) Physical Exam General Appearance: WD/WN, no apparent distress Eyes: PERRL, EOMI ENT: hearing grossly normal, pharynx normal, + pertinent finding (poor dentition) Neck: supple, no JVD Respiratory/Chest: chest non-tender, lungs clear, normal breath sounds, no respiratory distress, no accessory muscle use Cardiovascular: regular rate, rhythm, no murmur Abdomen: normal bowel sounds, non tender Extremities: non-tender, no pedal edema, no calf tenderness Neurologic/Psychiatric: alert, oriented x 3 Skin: normal color, warm/dry Notes: Back: dressing covering lumbar region appears to be c/d/i. RENNY drain in place with 50ml out (Lore Upton PA-C) Laboratory Results Last 24 Hours Test 08/25/16 08:37 08/25/16 16:15 08/26/16 00:21 08/26/16 05:58 Troponin I < 0.015 ng/ml < 0.015 ng/ml < 0.015 ng/ml White Blood Count 11.64 K/uL Red Blood Count 2.99 M/uL Hemoglobin 9.5 g/dL Hematocrit 27.0 % Mean Corpuscular Volume 90.3 fL Mean Corpuscular Hemoglobin 31.8 pg Mean Corpuscular Hemoglobin Concent 35.2 g/dl Platelet Count 173 K/uL Mean Platelet Volume 9.9 fL Neutrophils (%) (Auto) 77.8 % Lymphocytes (%) (Auto) 15.1 % Monocytes (%) (Auto) 6.6 % Eosinophils (%) (Auto) 0.0 % Basophils (%) (Auto) 0.0 % Neutrophils # (Auto) 9.05 K/uL Lymphocytes # (Auto) 1.76 K/uL Monocytes # (Auto) 0.77 K/uL Eosinophils # (Auto) 0.00 K/uL Basophils # (Auto) 0.00 K/uL RDW Standard Deviation 43.7 fL RDW Coefficient of Variation 13.4 % Immature Granulocyte % (Auto) 0.5 % Immature Granulocyte # (Auto) 0.06 K/uL Sodium Level 145 mmol/L Potassium Level 3.8 mmol/L Chloride Level 110 mmol/L Carbon Dioxide Level 27 mmol/L Anion Gap 8.0 mmol/L Blood Urea Nitrogen 14 mg/dl Creatinine 0.79 mg/dl Est Creatinine Clear Calc Drug Dose 79.7 ml/min Estimated GFR () 104.0 Estimated GFR (Non- 89.7 BUN/Creatinine Ratio 17.5 Random Glucose 102 mg/dl Calcium Level 8.2 mg/dl Magnesium Level 2.1 mg/dl (Lore Upton PA-C) Assessment and Plan This is a 71 yo M who underwent L2-L4 spinal decompression and fusion/ L4-S1 hardware removal on 08/25/[address] Govind Park, known COPD, chronic tobacco abuse, hyperlipidemia, and gout who developed chest discomfort and shortness of breath at rest around 0800 today. Medicine was consulted to evaluate for chest pain. Shortness of breath secondary to COPD and chronic tobacco use S/p spinal surgery by Dr. Garzon - POD #1 for spinal decompression and fusion / L4-S1 hardware removal by Dr. Govind Park - Cardiac etiology ruled out with EKG from 08/25- sinus diana without acute ischemic or ST segment changes, Serial troponins negative x3. CTA chest negative for PE. - Labs reviewed - Hgb = 9.5 down from 14.9, expect blood loss s/p surgery, monitor closely. Pt currently asymptomatic (no dizziness, sob, palpitations, weakness) - RENNY drain in place- drained 330ml on 08/25 and currently with ~50 mL out since midnight. - pt not on chemical anticoagulation- Pt has had SCDs on for DVT, walking with PT/OT. - Pt currently on room air COPD - Will order stat duoneb and flutter valve - Smokes 1 ppd since age 29 - cessation encouraged - Cont nicotine patch, 14 mcg - Continue supplemental O2 prn Constipation - Continue bowel regimen with miralax daily, Sennokot QHS. Will add on morning dulcolax 5 mg. 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 Disposition: From home. Likely discharge tomorrow per primary service. CODE STATUS: FULL CODE (Lore Upton, TYRESE) Reviewed: Pt Seen/Exam by , DEEDEE Notes, Labs (Marce Richmond MD) History Agree with PA's HPI/ROS (Marce Richmond MD) All Other Systems: Reviewed and Negative (Marce Richmond MD) General Appearance: WD/WN, no apparent distress Eye Exam: bilateral eye normal inspection Ears, Nose, Throat: hearing grossly normal Respiratory: lungs clear, normal breath sounds, no respiratory distress, no accessory muscle use Cardiovascular: regular rate, rhythm, no edema, no gallop, no murmur Gastrointestinal: normal bowel sounds, non tender, soft Extremities: non-tender, normal inspection, no pedal edema, no calf tenderness (Marce Richmond MD) Assessment/Plan AGree with above PA A/P with the following exceptions/additions: Chest pain-atypical, resolved on own, noncardiac, sounds like GERD. Trop neg x 3 , ECG without ischemic changes. CTA neg for PE or dissection. Was hypoxic at 90 % at the time and now off O2 and POx 94% which is likely his baseline given COPD and continued smoking. -continue Zantac 150mg po qhs here and can be prn at home after discharge -continue Advair, nebs prn, IS -needs home Rx for albuterol for prn use -strongly encouraged smoking cessation -will follow (Marce Richmond MD)
[2016-08-26] MEDS ORDERED: RXC5 PO (08:11)
--- NOTE | 2016-08-26 08:12 | Discharge Instructions ---
Discharge Instructions Admission Reason for Admission: Lumbar Spinal Stenosis Discharge Discharge Diagnosis / Problem: stenosis Discharge Goals Goal(s): Improve function Activity Recommendations Activity Limitations: per Instructions/Follow-up section . Instructions / Follow-Up Instructions / Follow-Up ACTIVITY RECOMMENDATIONS: SELF CARE INSTRUCTIONS AFTER THORACIC/LUMBAR FUSIONS 1. You may walk to your tolerance. It is good exercise for your legs and back. Expect some back and intermittent leg aches and pains. 2. You may perform "counter-top" level activities (make a sandwich, gabriela with a project, etc.). 3. No bending or lifting of more than 10 pounds or back twisting of any nature (roll like a log when turning in bed). 4. You may ride in a car for 20-30 minutes at a time. No driving until after your first visit with your doctor. 5. Frequent changes of position and restricting sitting to 30 minutes at a time will help limit the amount of back spasms and stiffness you may experience. 6. You may discontinue the use of ambulatory aids (cane, crutches, etc.) once your strength and confidence allow. 7. You may recruitment internship the shower and let water strike your incision when you arrive home at least once daily. Do not take a tub bath, sit in a hot tub or go into a swimming pool until after your first recheck in the office. SPECIAL CARE INSTRUCTIONS: VERY IMPORTANT TO READ AND REVIEW A. Your surgical incision has been closed with a cosmetic suture under the skin that will dissolve in about 6 weeks. In 14 days, you can use a pair of clean scissors and cut the suture that is left outside of the skin at the ends of your incision. 1. The small skin tapes can be removed 7 days after surgery if they have not fallen off by that point. 2. You may keep the wound open to air as much as possible to promote healing after post-op day number 5 unless told otherwise by your doctor. 3. If you think the wound looks like it is becoming infected (redness or worsening drainage) and/or you are experiencing fever, chill or worsening back pain and muscle spasms, contact the office so that we may evaluate you as soon as possible. B. Complications are uncommon, but please contact us if you have any signs or symptoms of: 1. wound infection (fever higher than 102.5 degrees F, redness, separation of wound, drainage, or increasing pain from the incision) 2. blood clots in legs (pain, swelling, redness and warmth in legs) 3. urinary tract infection (fever higher than 102.5 degrees F, burning upon urination or increased frequency of urination) 4. nerve problems (inability to walk on your toes or heels, numbness, loss of bowel or bladder control) 5. any other symptoms that concern you C. Please call the office at if you have any concerns or questions about your operation or recovery. D. No smoking! Smoking drastically decreases the chance of a solid fusion. E. Do not take any anti-inflammatory medications (Indocin, Advil, Motrin, Aspirin, Naprosyn, etc.) as these may inhibit the chance of a solid fusion. Tylenol is okay to take for pain. MANAGING PAIN AFTER SPINAL SURGERY 1. Narcotic medication is intended for short-term use and will be provided for surgical pain. Surgical pain usually lasts for a period of 4-6 weeks. Narcotic medication includes Percocet, Vicodin, Darvocet, Tylenol #3 or Lortab. 2. Longer-term pain is more appropriately treated with non-narcotic medication such as Tylenol ES. 3. Muscle spasm is not appropriately treated with narcotics. Muscle relaxers such as Soma, Flexeril or Skelaxin can be used along with Tylenol ES. 4. Remember that we all live with some "aches and pains". This is not unusual or uncommon after an injury or as we get older. a. Back pain is expected and may include muscle spasms for 4 to 6 weeks after surgery. The pain should gradually improve. If the pain worsens for no apparent reason, please contact the office. b. Intermittent leg pain may also be experienced and should not be concerned about unless it worsens for no apparent reason. If so, please contact the office. 5. We will provide appropriate medication within the normal guidelines of their prescribed use. We will also be very cautious and aware of potential abuse and extended duration of patients' medication needs. a. Pain medications are for your comfort and to assist with sleep and rest so that the tissue can heal. They are not provided in order to return to normal activity and should not be used through the day. To do so or worsening pain at night can result from ongoing tissue damage and development of tolerance to the prescribed medicine. 6. Please allow 2-3 days to process refills. Prescriptions will not be mailed but must be picked up at the office. FOLLOW UP VISIT: Keep your scheduled follow-up appointment. Any questions, please call the office at . Current Hospital Diet Patient's current hospital diet: Regular Diet Discharge Diet Recommended Diet: Regular Diet Procedures Procedures Performed: Hardware removal L4-S1, Decompression/Fusion L2-L4, Interbody Cage at L3-L4, Use of Infuse Pending Studies Studies pending at discharge: no Medical Emergencies . Who to Call and When: Medical Emergencies: If at any time you feel your situation is an emergency, please call 911 immediately. . Non-Emergent Contact Non-Emergency issues call your: Primary Care Provider . "Provider Documentation" section prepared by Govind Park. VTE Core Measure Inpt VTE Proph given/why not?: Jayme Munoz, SCD's
[2016-08-26] MEDS ORDERED: KETOROLAC TROMETHAMINE 15 MG/ML VIAL IV PRN (08:15)
--- NOTE | 2016-08-26 08:32 | PROGRESS NOTE ---
DATE: 08/26/2016 Postop day 2. Back pain is controlled. Leg pain improving. Vital signs stable. Temperature 36.7. RENNY drained 50 mL. Hematocrit this a.m. is 27.0. On exam has good strength to testing. Is comfortable. ASSESSMENT: Status post lumbar decompression and fusion. PLAN: At this time will continue physical therapy today, anticipate discharge home tomorrow.
[2016-08-26] MEDS: BISACODYL 5 MG TABEC PO SCH (09:59)
[2016-08-26 11:54] VITALS: PULSE 78; O2SAT 97
[2016-08-26 15:21] VITALS: BP 117/66; PULSE 68; TEMP 37; O2SAT 94
[2016-08-26] MEDS ORDERED: PRVHFAIN INH (15:41)
[2016-08-26] MEDS: PRAVASTATIN SOD 20 MG TAB PO SCH (21:04)
[2016-08-26] MEDS: RANITIDINE HCL 150 MG TAB PO SCH (21:05)
[2016-08-26] MEDS: DOCUSATE SODIUM/SENNA 50/8.6MG TAB PO SCH (21:05)
[2016-08-26 23:12] VITALS: BP 105/53; PULSE 73; TEMP 36.9; O2SAT 94
[2016-08-27 05:55] VITALS: BP 122/69; PULSE 64; TEMP 37.1; O2SAT 95
[2016-08-27] MEDS: POLYETHYLENE (MIRALAX) 17 GM PACK PO SCH (06:00)
[2016-08-27 07:55] VITALS: BP 122/62; PULSE 68; TEMP 36.9; O2SAT 98
[2016-08-27] MEDS: ALBUT/IPRATROP 3MG/0.5MG NEB 3 ML VIAL INH SCH (08:00)
[2016-08-27] MEDS: NICOTINE 14 MG/24 HR TDSY TD SCH (08:11)
[2016-08-27] MEDS: BISACODYL 5 MG TABEC PO SCH (08:11)
[2016-08-27] MEDS: FLUTICASONE/SALMETEROL (ADVAIR) 500/50 INH 14 PUFF INH SCH (08:11)
[2016-08-27] MEDS: OXYCODONE HCL IR 5 MG TAB (IMMEDIATE RELEASE) PO PRN (08:12)
[2016-08-27 08:17] VITALS: BP 122/62; PULSE 68; TEMP 36.9; O2SAT 98
[2016-08-27 09:07] VITALS: O2SAT 98
--- NOTE | 2016-08-27 11:14 | DISCHARGE SUMMARY ---
PRINCIPAL DIAGNOSIS: Spinal stenosis. HOSPITAL COURSE FOLLOWS: On 08/24/2016 the patient underwent lumbar decompression and fusion, tolerated this well and taken to the orthopedic floor postoperatively. Postop day #1, she was up and ambulatory, progressed to postop day #2. RENNY drain decreasing appropriately. Subsequently on postop day #3, he was discharged home. Discharge orders and instructions can be found on the chart for further review.
--- NOTE | 2016-08-27 12:30 | Hospitalist Progress Note ---
Hospitalist Progress Note Date of Service Aug 27, 2016. (Lore Upton, TYRESE) Subjective Pt evaluation today including: conversation w/ patient, conversation w/ family , chart review The patient was seen this morning going over discharge instructions with nursing. Pt reports feeling sore and ready to go home, no acute complaints. (Lore Upton, TYRESE) Objective Vital Signs Date Time Temp Pulse Resp B/P Pulse Ox O2 Delivery O2 Flow Rate FiO2 08/27/16 09:07 98 Room Air 08/27/16 08:33 Room Air 08/27/16 08:17 36.9 68 16 98 Room Air 08/27/16 07:55 36.9 68 16 122/62 98 Room Air 08/27/16 05:55 37.1 64 16 122/69 95 Room Air 08/26/16 23:40 Room Air 08/26/16 23:12 36.9 73 16 105/53 94 Room Air 08/26/16 19:45 Room Air 08/26/16 16:00 Nasal Cannula 2.0 08/26/16 15:21 37.0 68 18 117/66 94 Room Air (Lore Upton, TYRESE) Assessment and Plan This is a 71 yo M who underwent L2-L4 spinal decompression and fusion/ L4-S1 hardware removal on 08/25/[address] Govind Park, known COPD, chronic tobacco abuse, hyperlipidemia, and gout who developed chest discomfort and shortness of breath at rest around 0800 today. Medicine was consulted to evaluate for chest pain. Shortness of breath secondary to COPD and chronic tobacco use S/p spinal surgery by Dr. Garzon - POD #3 for spinal decompression and fusion / L4-S1 hardware removal by Dr. Govind Park - Cardiac etiology ruled out with EKG from 08/25- sinus diana without acute ischemic or ST segment changes, Serial troponins negative x3. CTA chest negative for PE. - Labs reviewed - Hgb = 9.5 on 08/26 down from 14.9, expect blood loss s/p surgery ,would recommend follow up blood work within 1 week to make sure hgb is stable - RENNY drain removed. - pt not on chemical anticoagulation- Pt has had SCDs on for DVT, walking with PT/OT. - Pt currently on room air COPD - duoneb and flutter valve - Smokes 1 ppd since age 29 - cessation encouraged - Cont nicotine patch, 14 mcg - Continue supplemental O2 prn Constipation - Continue bowel regimen with miralax daily, Sennokot QHS. cont dulcolax 5 mg. 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 Disposition: From home. dc today per primary service. CODE STATUS: FULL CODE (Lore Upton PA-C) History Pt left before I could see him. CHart reviewed and pt discussed with PA. Was doing well and stable medically for discharge (Marce Richmond MD) Assessment/Plan AGree with above PA A/P with the following exceptions/additions: Chest pain-atypical, resolved on own, noncardiac, sounds like GERD. Trop neg x 3 , ECG without ischemic changes. CTA neg for PE or dissection. Was hypoxic at 90 % at the time and now off O2 and POx 94% which is likely his baseline given COPD and continued smoking. -continue Zantac 150mg po qhs here and can be prn at home after discharge -continue Advair, nebs prn, IS -needs home Rx for albuterol for prn use -strongly encouraged smoking cessation -will follow (Marce Richmond MD)
[2016-11-12] MEDS ORDERED: ACET-1256 PO (13:25)
== END 2016-08-27 10:05 | disposition home health service (06) | DRG 460 ==
LOC: ENRESERVDT → ENRESERVTM → C.ACU 07:22 → C.3E 10:30
PROVIDERS: ADMIT Orthopaedic Surgery Orthopaedic Surgery of the Spine; ATTEND Orthopaedic Surgery Orthopaedic Surgery of the Spine
PROC: 0SP004Z Removal of Internal Fixation Device from Lumbar Vertebral Joint, Open Approach (ICD-10-PCS; 2016-08-24)
PROC: 3E0V0GB Introduction of Recombinant Bone Morphogenetic Protein into Bones, Open Approach (ICD-10-PCS; 2016-08-24)
PROC: 0SG10A1 (ICD-10-PCS; principal; 2016-08-24 09:30)
PROC: 0ST20ZZ Resection of Lumbar Vertebral Disc, Open Approach (ICD-10-PCS; 2016-08-24 09:30)
DX: M48.06 Spinal stenosis, lumbar region (principal); Z88.6 Allergy status to analgesic agent; Z88.5 Allergy status to narcotic agent; Z88.1 Allergy status to other antibiotic agents; Z79.899 Other long term (current) drug therapy; J44.9 Chronic obstructive pulmonary disease, unspecified; M10.9 Gout, unspecified; E78.5 Hyperlipidemia, unspecified; F41.9 Anxiety disorder, unspecified; F17.210 Nicotine dependence, cigarettes, uncomplicated

== ENCOUNTER 2016-12-15 06:17 | Inpatient (IN) | payer OTHER, MEDICARE ==
[2016-11-12 13:26] VITALS: BMI 26.0
--- NOTE | 2016-11-12 13:56 | PAT Medication Instructions ---
Service Date Nov 12, 2016. Current Home Medication List Acetaminophen (Tylenol), 1 TAB PO Q8 Albuterol (Ventolin Hfa), 2 PUFFS INH Q4 PRN for SOB/Wheezing Fluticasone Prop/Salmeterol (Advair Diskus 500/50 60 Dose), 1 PUFF INH BID Oxycodone HCl (Oxycodone HCl), 5-10 MG PO Q4H PRN for Moderate - severe pain Oxycodone Immediate Rel Tab (Roxicodone Ir), 1-2 TAB PO Q4H PRN for Pain Pravastatin (Pravachol ), 10 MG PO QPM Senna/Docusate Sod (Senokot S), 1 TAB PO PRN Medication Instructions For Your Scheduled Surgery - Hold the following medications the morning of surgery: Senna/Docusate Sod (Senokot S), 1 TAB PO PRN - Take the following medications the morning of surgery with a sip of water: Fluticasone Prop/Salmeterol (Advair Diskus 500/50 60 Dose), 1 PUFF INH BID Acetaminophen (Tylenol), 1 TAB PO Q8 (if needed) Albuterol (Ventolin Hfa), 2 PUFFS INH Q4 PRN for SOB/Wheezing (if needed) Oxycodone HCl (Oxycodone HCl), 5-10 MG PO Q4H PRN for Moderate - severe pain ( okay to take up to 4 hours prior to surgery if needed) Oxycodone Immediate Rel Tab (Roxicodone Ir), 1-2 TAB PO Q4H PRN for Pain (okay to take up to 4 hours prior to surgery if needed) - Take the following medications as scheduled the night before surgery: Senna/Docusate Sod (Senokot S), 1 TAB PO PRN (if needed) Pravastatin (Pravachol ), 10 MG PO QPM Fluticasone Prop/Salmeterol (Advair Diskus 500/50 60 Dose), 1 PUFF INH BID Acetaminophen (Tylenol), 1 TAB PO Q8 Albuterol (Ventolin Hfa), 2 PUFFS INH Q4 PRN for SOB/Wheezing (if needed) Oxycodone HCl (Oxycodone HCl), 5-10 MG PO Q4H PRN for Moderate - severe pain ( if needed) Oxycodone Immediate Rel Tab (Roxicodone Ir), 1-2 TAB PO Q4H PRN for Pain (if needed) If you have any questions please call us at [phone] (Christine Minor PA-C) or [phone] or [phone]
[2016-11-12 14:38] LABS: BASO % 0.7 %; BASO ABS # 0.04 K/uL (0-0.2); COMPLETE YES; HEMATOCRIT 40.7 % (42-52); IG% 0.2 %; LYMPH % 34.6 %; LYMPH ABS # 2.12 K/uL (1.2-3.4); MEAN CELL VOLUME 86.8 fL (80-100); MEAN CORPUSCULAR HGB CONC 33.4 g/dl (32-36); MEAN PLATELET VOLUME 8.9 fL (7.4-10.4); MONO % 9.3 %; NEUT % 54.2 %; PLATELET COUNT 223 K/uL (130-400); RED BLOOD COUNT 4.69 M/uL (4.7-6.1); WHITE BLOOD COUNT 6.13 K/uL (4.8-10.8)
[2016-11-12 14:44] LABS: URINE APPEARANCE CLEAR (CLEAR); URINE BILIRUBIN NEG (NEG); URINE COLOR YELLOW; URINE NITRITE NEG (NEG); URINE PH 5.5 (4.5-7.5); URINE SPECIFIC GRAVITY 1.019 (1.000-1.030); UROBILINOGEN NEG (NEG); ZZUR CULT IF INDIC CLEAN CATCH NO
[2016-11-12 14:47] LABS: PROTHROMBIN TIME (PATIENT) 10.3 SECONDS (9.0-12.0)
[2016-11-12 14:48] LABS: ESTIMATED AVERAGE GLUCOSE 97 mg/dl; HA1C FLAG Normal (Normal)
[2016-11-12 14:54] LABS: MANUAL MICROSCOPIC REQUIRED? NO; REVIEW REQ? NO
[2016-11-12 15:41] LABS: BUN/CREATININE RATIO 15.8 (10-20); CALCIUM 8.8 mg/dl (8.5-10.1); CREATININE 0.81 mg/dl (0.60-1.40); POTASSIUM 3.8 mmol/L (3.5-5.1)
--- NOTE | 2016-12-14 19:51 | HISTORY & PHYSICAL EXAMINATION ---
DATE OF ADMISSION: 12/15/2016 CHIEF COMPLAINT: Right knee pain. HISTORY OF PRESENT ILLNESS: This is a 71-year-old male patient of Dr. Guevara'francy complaining of chronic right knee pain, longstanding, now progressively getting worse. The patient has failed conservative treatment including intraarticular injections, the use of anti-inflammatories and the use of brace and the use of a cane. The patient has increased pain with weightbearing activities and his pain does interfere with his activities of daily living. PAST MEDICAL HISTORY: COPD, osteoarthritis, spine problems, upper back problems, sciatica, dental issues. SOCIAL HISTORY: He is a half pack per day smoker. He drinks approximately 6 drinks per week. PAST SURGICAL HISTORY: Shoulder surgery and back surgery x2. FAMILY HISTORY: Noncontributory. REVIEW OF SYSTEMS: The patient complains of chronic right knee pain, otherwise denies any shortness of breath, chest pain, nausea, vomiting or any other joint complaints. ALLERGIES: INCLUDE VICODIN AND MORPHINE. MEDICATIONS: 1. Crestor 10 mg daily. 2. Advair Diskus 250/50 one puff b.i.d. 3. Albuterol inhaler 90 mcg 2 puffs every 4-6 hours as needed. 4. Aerosol inhaler as needed. 5. Oxycodone as needed. PHYSICAL EXAMINATION: GENERAL: Well-developed, well-nourished 71-year-old male in no acute distress. He is alert and oriented x3 and pleasant. HEENT: He is normocephalic, atraumatic. Extraocular motions are intact. Pupils are equal and reactive to light. HEART: Regular rate and rhythm, no murmurs appreciated. LUNGS: Clear. ABDOMEN: Soft and nontender. EXTREMITIES: Right knee reveals a negative 15-90 degrees of range of motion. He has a valgus deformity and has lateral joint line tenderness with an effusion. He has crepitation with passive range of motion. He has 5/5 strength and neurologically and neurovascularly, he is intact in his right lower extremity. DIAGNOSES: Right knee end-stage osteoarthritis, chronic obstructive pulmonary disease, osteoarthritis, spine problems, upper back problems, sciatica and dental issues. PLAN: The patient was advised of his diagnoses. Indications, risks, benefits, and postop course have all been reviewed. The patient wishes to proceed with a right total knee arthroplasty. Necessary consent forms, preoperative testing and clearances will be obtained.
[~2016-12-15] VITALS: Ht 167.6 cm; Wt 73.3 kg
[2016-12-15] VITALS (9 sets, daily range): BP systolic 113–149; BP diastolic 67–86; PULSE 55–69; TEMP 36.4–36.6; O2SAT 94–97; Ht 167.6 cm; Wt 73.3 kg
[~2016-12-15 06:17] MED LIST changes: +ACET-1256 PO; +ACETAMINOPHEN 500 MG TAB PO SCH; +CEFAZOLIN 1000MG/55 ML D5W 55 ML IV SCH; -CEFAZOLIN 1000MG/55 ML D5W IV SCH; +CeleBREX 200 MG CAP PO SCH; +DEXAMETHASONE 4 MG TAB PO SCH; +FAMOTIDINE 20 MG TAB PO SCH; +GABAPENTIN 300 MG CAP PO SCH; +LACTATED RINGER'S 1000ML 500 ML IV ONE; +LACTATED RINGER'S 1000ML IV SCH; -MELO7.5T5 PO; +PRVHFAIN INH; +ROPIVACAINE 5MG/ML 30 ML 150 MG, BUPIVACAINE/EPINEPHR 0.5% MPF 30 ML, KETOROLAC TROMETH... INFIL SCH; +RXC5 PO
[2016-12-15] MEDS: TRANEXAMIC ACID INJ 1,000 MG in SODIUM CHLORIDE 0.9% 100ML 100 ML IV SCH ×2 (06:30→07:59)
[2016-12-15] MEDS ORDERED: PROPOFOL IV EMULSION 10 MG/ML 20 ML VIAL IV ONE (07:01)
[2016-12-15] MEDS ORDERED: LIDOCAINE HCL 2% 2 ML VIAL (20MG/ML) ONE (07:01)
[2016-12-15] MEDS ORDERED: MIDAZOLAM HCL 1 MG/ML 2ML VIAL ONE ×2 (07:02→07:09)
[2016-12-15] MEDS ORDERED: FENTANYL CITRATE INJ 50 MCG/1 ML 2 ML VIAL ONE (07:02)
[2016-12-15] MEDS ORDERED: BACITRACIN 50000 UNIT VIAL ONE (07:13)
[2016-12-15] MEDS ORDERED: POVIDONE-IODINE OP SOLN 30 ML BTL ONE (07:13)
[2016-12-15] MEDS ORDERED: ORTHO JOINT ANESTHETIC ONE (07:13)
[2016-12-15] MEDS ORDERED: BUPIVACAINE 0.25% 30 ML VIAL ONE (07:19)
[2016-12-15] MEDS ORDERED: BUPIVACAINE 0.5 % 5 MG/1 ML PF 10ML VIAL ONE (07:19)
[2016-12-15] MEDS ORDERED: HYDROmorphone INJ 2 MG/ML SYR/VIAL ONE (08:30)
[2016-12-15] MEDS ORDERED: EpHEDrine SULFATE 50MG/5ML SYR ONE (08:54)
[2016-12-15] MEDS ORDERED: ONDANSETRON INJ 2 MG/ML 2 ML VIAL ONE (09:21)
[2016-12-15] MEDS ORDERED: DEXAMETHASONE SOD INJ 4 MG/ML VIAL ONE (09:21)
--- NOTE | 2016-12-15 09:58 | [facility] Operative Report ---
Operative Report Operative Date December 15, 2016. Pre-Operative Diagnosis Right knee degenerative joint disease Post-Operative Diagnosis same Procedure(s) Performed right total knee replacement Surgeon Dr. Jose Guevara Picture Engraver Surgeon(s) Russell Elmore PA-c Estimated Blood Loss 5 ML Findings valgus ,grade 4 djd lateral and medial compartments Specimens A. Right knee bone and tissue Drains 2 hemovac Anesthesia general regional orthomix Complication(s) None Disposition Recovery Room / PACU Indications end stage djd oa I attest to the content of the Intraoperative Record and any orders documented therein. Any exceptions are noted below.
[2016-12-15] MEDS ORDERED: BISACODYL 10 MG SUPP PR PRN (10:30)
[2016-12-15] MEDS ORDERED: HYDROmorphone INJ 1 MG/ML SYR IV PRN ×2 (10:30→11:00)
[2016-12-15] MEDS ORDERED: SOD PHOSPHATE/SOD BIPHOSPHATE ENEMA 132 ML BTL PR PRN (10:30)
[2016-12-15] MEDS ORDERED: ZOLPIDEM TARTRATE 5 MG TAB PO PRN (10:30)
[2016-12-15] MEDS ORDERED: DOCUSATE SODIUM/SENNA 50/8.6MG TAB PO PRN (10:30)
[2016-12-15] MEDS ORDERED: MAGNESIUM HYDROXIDE SUSP 30 ML UDC PO PRN (10:30)
[2016-12-15] MEDS ORDERED: ONDANSETRON INJ 2 MG/ML 2 ML VIAL IV PRN ×2 (10:30→11:00)
[2016-12-15] MEDS ORDERED: ALBUTEROL HFA 8 GM INHALER INH PRN (10:30)
[2016-12-15] MEDS ORDERED: TRAMADOL HCL 50 MG TAB PO PRN (10:30)
[2016-12-15] MEDS ORDERED: OXYCODONE HCL IR 5 MG TAB (IMMEDIATE RELEASE) PO PRN (10:30)
[2016-12-15] MEDS ORDERED: HYDROmorphone INJ 1 MG/ML SYR ONE (10:40)
[2016-12-15] MEDS ORDERED: NALOXONE HCL 0.4 MG/1 ML VIAL/CARP IV PRN (11:00)
[2016-12-15] MEDS ORDERED: PROMETHAZINE HCL INJ 12.5 MG in SODIUM CHLORIDE 0.9% 50ML 50 ML IV PRN (11:00)
[2016-12-15] MEDS ORDERED: ATROPINE SULFATE 0.1 MG/ML 5ML SYR IV PRN (11:00)
[2016-12-15] MEDS ORDERED: LABETALOL HCL IV 5 MG/ML 20ML IV PRN (11:00)
[2016-12-15] MEDS ORDERED: EpHEDrine SULFATE INJ 50 MG/ML AMP IV PRN (11:00)
[2016-12-15] MEDS ORDERED: FLUMAZENIL 0.1 MG/1 ML 10 ML VIAL IV PRN (11:00)
--- NOTE | 2016-12-15 11:14 | OPERATIVE REPORT ---
DATE OF OPERATION: 12/15/2016 INDICATION FOR PROCEDURE: The patient is a 71-year-old male with chronic right knee DJD. He has a valgus knee. He is [id number] in the lateral compartment. PREOPERATIVE DIAGNOSIS: End-stage osteoarthritis, right knee. POSTOPERATIVE DIAGNOSIS: Same. PROCEDURE: Right total knee arthroplasty. SURGEON: Dr. Guevara. FISH DRESSING MACHINE FEEDER: Russell Elmore PA-C. ANESTHESIA: General regional block and Orthomix. OPERATIVE PROCEDURE: The patient was taken to the operating room, anesthetized under a general anesthetic regional block anesthetic and his right lower extremity was prepped and draped in sterile fashion. He had a valgus knee. He had good range of motion and lateral compartment crepitation. No instability. His right lower extremity was prepped and draped with ChloraPrep. The leg was elevated, exsanguinated with Esmarch bandage. Pneumatic tourniquet was raised to 300 mmHg. Anterior incision made across the right knee, skin incised sharply. Subcutaneous flaps were elevated. Incision was made through medial retinaculum and extended up in the mid third of the quadriceps tendon extending down to the medial tibial tubercle. Intra-articular findings demonstrated that he had a grade 4 DJD, medial and lateral compartment with subluxation of the femur laterally. He had absent lateral meniscus with some remnants of the lateral meniscus only. I used the Padilla \T\ Nephew Journey 2.0, total knee arthroplasty system using [employer] MRI templating. Femur sized for a 6, tibia for a 6. The knee was exposed by excising the infrapatellar fat pad and doing no releases around the medial side. We did release laterally around the lateral tibial plateau, releasing the capsule and the IT band. The lateral meniscus remnants were excised, the medial meniscus was excised. The cruciate ligaments were excised. The fat pad over the anterior femur for placement of the component in that area was resected. The femur was exposed and the custom femoral cutting block was pinned in position and the distal femoral cut was made. The 5 in 1 cutting block for the size 6 femur was placed and anterior, posterior and chamfer cuts were made. The knee was then extended and a subperiosteal peel lateral release was performed around the patella. The patella width was measured and width was reproduced using a freehand cut technique and a 35 patellar component. Drill holes for the button were made. The excess lateral facet was beveled off to prevent any impingement. The tibia was then exposed and the custom tibial cutting block was pinned in position and the proximal tibial cut was made. Lamina service delivery analyst was used to assess ligamentous balance in extension and flexion, ligaments were balanced. The tibia was re-exposed and the 6 tibial trial was externally rotated in line with the tibial tubercle, pinned in position. The punch for the stem was used. The 6 femoral trial was inserted, centered and the notch cutting devices were used. A collet was placed. A 10 insert gave balanced ligaments through full range of motion and patella tracked centrally. Trials were removed. The anesthetic cocktail Orthomix was injected per protocol. The knee was copiously irrigated with pulsatile lavage and antibiotic solution and bacitracin. The final components were then cemented with Simplex cement. Final components were the 6 Oxinium posterior stabilized right femur Journey 2.0 Padilla \T\ Nephew and the 6 primary tibial baseplate, the 10 mm posterior stabilized high flex poly insert, and the 35 mm patella. While cement cured used Betadine soak per protocol. The knee was then copiously irrigated with pulsatile lavage antibiotic solution and bacitracin. Two drains were brought out bilaterally across the medial retinaculum closed with [id number] #1 Vicryl sutures. The knee was taken through full range of motion and repair was secure. Subcutaneous tissues where then injected with more Orthomix and then subcutaneous tissues were closed with interrupted 2-0 Vicryl, skin was closed with ami, Silverlon dressing was applied. The patient tolerated the procedure well. Russell Elmore PA-C was my tmd teacher assistant and he functioned as tmd teacher assistant for the entire procedure. He assisted in patient positioning, prepping, draping, leg positioning, soft tissue retraction, instrument management during the procedure and he performed the fascial, subcutaneous and skin closure and will participate in the postoperative care of the patient. I attest to the content of the Intraoperative Record and any orders documented therein. Any exceptio ns are noted below.
--- NOTE | 2016-12-15 11:21 | DIAGNOSTIC IMAGING REPORT ---
RIGHT KNEE 1 OR 2 VIEWS ROUTINE CLINICAL HISTORY: AP/LATERAL IN PACU RIGHT KNEE Right COMPARISON: None. DISCUSSION: Status post total right knee replacement. Good contact between prosthetic and underlying bone. Expected soft tissue postoperative change IMPRESSION: Anatomic alignment status post total right knee arthroplasty Electronically signed by: Russell Pollack M.D. 12/15/2016 11:20 AM Dictated Date/Time: 12/15/2016 11:19 AM
--- NOTE | 2016-12-15 11:37 | Anesthesiology Progress Note ---
Anesthesia Post Op Note Date & Time December 15, 2016 at 11:38 Vital Signs Pain Intensity: 4 Vital Signs Past 12 Hours Date Time Temp Pulse Resp B/P Pulse Ox O2 Delivery O2 Flow Rate FiO2 12/15/16 11:20 36.3 54 8 139/68 96 Nasal Cannula 2 12/15/16 11:10 58 10 114/72 95 Nasal Cannula 2 12/15/16 11:00 59 13 143/81 97 Nasal Cannula 2 12/15/16 10:50 65 11 128/83 96 Nasal Cannula 2 12/15/16 10:40 63 14 152/84 100 Mask 10 12/15/16 10:30 65 12 139/71 99 Mask 10 12/15/16 10:20 61 16 141/82 99 Mask 10 12/15/16 10:16 36.2 67 16 161/92 99 Mask 10 12/15/16 06:48 36.5 63 20 149/86 96 Room Air Notes Mental Status: alert / awake / arousable, participated in evaluation Pt Amnestic to Procedure: Yes Nausea / Vomiting: adequately controlled Pain: adequately controlled Airway Patency, RR, SpO2: stable & adequate BP & HR: stable & adequate Hydration State: stable & adequate Anesthetic Complications: no major complications apparent
--- NOTE | 2016-12-15 13:13 | Medical Consult ---
Consultation Date of Consultation: December 15, 2016. Attending Physician: Jose Guevara M.D. Reason for Consultation: Post op management History of Present Illness Pt is a 71 yo male patient with hx of COPD, dyslispidemia, OA, sciatica who has failed OP conservative measures for progressing right knee pain with anti-inflammatories, injections. Pt is s/p right TKA and now consulted to our services for post op management. Past Medical/Surgical History Medical Problems: (1) Lumbar back pain with radiculopathy affecting left lower extremity Status: Acute Social History Smoking Status: Current Every Day Smoker Drug Use: none Marital Status: in relationship Housing Status: lives with significant other Occupation Status: employed Allergies Coded Allergies: Moxifloxacin (Verified Allergy, Unknown, rash per PCP note, 12/15/16) Morphine (Verified Adverse Reaction, Intermediate, SEVERE DROP IN BP, 12/15) Current Inpatient Medications Current Inpatient Medications Medications (Trade) Dose Ordered Sig/Crystal Route Start Time Stop Time Status Last Admin Dose Admin Lactated Ringer's 1,000 ml @ 15 mls/hr Q24H IV 12/15/16 06:00 12/16/16 05:59 Lactated Ringer's 1,000 ml @ 60 mls/hr [id number] IV 12/15/16 06:00 12/15/16 22:39 Cefazolin Sodium (Ancef 1000mg/55 ml D5W) 55 ml @ 100 mls/hr PREOP IV 12/15/16 06:00 12/15/16 18:00 12/15/16 08:13 100 MLS/HR Acetaminophen (Tylenol Tab) 1,000 mg PREOP PO 12/15/16 06:00 12/15/16 18:00 12/15/16 07:05 1,000 MG Celecoxib (CeleBREX CAP) 200 mg PREOP PO 12/15/16 06:00 12/15/16 18:00 12/15/16 07:05 200 MG Dexamethasone (Decadron Tab) 8 mg PREOP PO 12/15/16 06:00 12/15/16 18:00 12/15/16 07:06 8 MG Famotidine (Pepcid Tab) 20 mg PREOP PO 12/15/16 06:00 12/15/16 18:00 12/15/16 07:05 20 MG Gabapentin 300 mg 300 mg PREOP PO 12/15/16 06:00 12/15/16 18:00 12/15/16 07:06 300 MG Tranexamic Acid/ Sodium Chloride (Cyklokapron Inj/ Nss 100ml) 110 ml @ 660 mls/hr TODAY@06,0630 IV 12/15/16 06:00 12/15/16 18:00 12/15/16 07:59 660 MLS/HR Albuterol (Ventolin Hfa Inhaler) 2 puffs Q4 PRN INH 12/15/16 10:30 01/14/17 10:29 Salmeterol Xinafoate/ Fluticasone (Advair Diskus 500/50 Inh) 1 puff BID INH 12/15/16 21:00 01/14/17 20:59 Oxycodone HCl (Roxicodone Immediate Rel Tab) as above Q4H PRN PO 12/15/16 10:30 12/29/16 10:29 Pravastatin Sodium (Pravachol Tab) 10 mg QPM PO 12/15/16 21:00 01/14/17 20:59 Senna/Docusate Sodium 1 tab 1 tab DAILY PRN PO 12/15/16 10:30 01/14/17 10:29 Potassium Chloride/Dextrose/ Sod Cl 1,000 ml @ 100 mls/hr Q10H IV 12/15/16 13:00 12/16/16 12:59 Cefazolin Sodium/ Dextrose (Ancef Iv/D5 50ml) 55 ml @ 100 mls/hr Q8H IV 12/15/16 16:00 12/16/16 00:32 Acetaminophen (Tylenol Tab) 1,000 mg Q8H PO 12/15/16 14:00 01/14/17 13:59 Magnesium Hydroxide (Milk Of Magnesia Susp) 30 ml Q6H PRN PO 12/15/16 10:30 01/14/17 10:29 Bisacodyl (Dulcolax Supp) 10 mg DAILY PRN NH 12/15/16 10:30 01/14/17 10:29 Sodium Biphosphate/ Sodium Phosphate (Fleet Enema) 132 ml DAILY PRN NH 12/15/16 10:30 01/14/17 10:29 Docusate Sodium (coLACE CAP) 100 mg BID PO 12/15/16 21:00 01/14/17 20:59 Diphenhydramine HCl (Benadryl Cap) 25 mg Q8H PRN PO 12/15/16 10:30 01/14/17 10:29 Zolpidem Tartrate (Ambien Tab) 5 mg HSZ PRN PO 12/15/16 10:30 01/14/17 10:29 Multivitamins (Multivitamin Tab) 1 tab QAM PO 12/16/16 09:00 01/15/17 08:59 Ondansetron HCl (Zofran Inj) 4 mg Q6H PRN IV 12/15/16 10:30 01/14/17 10:29 Pantoprazole Sodium (Protonix Tab) 40 mg QAM PO 12/16/16 09:00 01/15/17 08:59 Tramadol HCl (Ultram Tab) 1 tablet for pain rating... Q4H PRN PO 12/15/16 10:30 01/14/17 10:29 Aspirin (Ecotrin Tab) 81 mg BID PO 12/15/16 21:00 01/14/17 20:59 Hydromorphone HCl (Dilaudid Inj) 0.5 mg Q4H PRN IV 12/15/16 10:30 12/29/16 10:29 Hydromorphone HCl (Dilaudid Inj) 0.25 mg Q5M PRN IV 12/15/16 11:00 12/15/16 16:00 Naloxone HCl (Narcan Inj) 0.2 mg Q2M PRN IV 12/15/16 11:00 12/15/16 16:00 Flumazenil (Romazicon Inj) 0.2 mg Q2M PRN IV 12/15/16 11:00 12/15/16 16:00 Ondansetron HCl 4 mg 4 mg ONE PRN IV 12/15/16 11:00 12/15/16 16:00 Promethazine HCl/ Sodium Chloride (Phenergan Inj/ Nss 50ml) 50.5 ml @ 202 mls/hr ONE PRN IV 12/15/16 11:00 12/15/16 16:00 Labetalol HCl (Normodyne IV) 5 mg Q5M PRN IV 12/15/16 11:00 12/15/16 16:00 Ephedrine Sulfate (EpHEDrine SULFATE INJ) 5 mg Q5M PRN IV 12/15/16 11:00 12/15/16 16:00 Atropine Sulfate (Atropine Sulfate 0.1MG/Ml Inj) 0.5 mg Q1M PRN IV 12/15/16 11:00 12/15/16 16:00 Review of Systems Constitutional: No chills, No fever Eyes: No eye pain, No worsening of vision ENT: No hearing loss, No unusual epistaxis Respiratory: No cough, No dyspnea on exertion, No shortness of breath, No sputum, No wheezing Cardiovascular: No PND, No chest pain, No edema, No orthopnea Abdomen: No diarrhea, No nausea, No pain, No vomiting Musculoskeletal: + joint pain, No calf pain, No muscle pain, No swelling Genitourinary - Male: No dysuria, No hematuria, No urinary frequency, No urinary urgency Psychiatric: No anhedonism, No anxiety, No depression symptoms, No insomnia Endocrine: No excessive thirst, No fatigue Integumentary: No itch, No rash Physical Exam Date Time Temp Pulse Resp B/P Pulse Ox O2 Delivery O2 Flow Rate FiO2 12/15/16 12:20 36.4 55 16 142/79 97 2.0 12/15/16 11:50 36.6 66 14 147/77 95 Nasal Cannula 3.0 12/15/16 11:50 Nasal Cannula 3.0 12/15/16 11:50 95 Nasal Cannula 3.0 12/15/16 11:40 58 16 113/71 93 Nasal Cannula 2 12/15/16 11:30 56 12 114/68 96 Nasal Cannula 2 12/15/16 11:20 36.3 54 8 139/68 96 Nasal Cannula 2 12/15/16 11:10 58 10 114/72 95 Nasal Cannula 2 12/15/16 11:00 59 13 143/81 97 Nasal Cannula 2 12/15/16 10:50 65 11 128/83 96 Nasal Cannula 2 12/15/16 10:40 63 14 152/84 100 Mask 10 12/15/16 10:30 65 12 139/71 99 Mask 10 12/15/16 10:20 61 16 141/82 99 Mask 10 12/15/16 10:16 36.2 67 16 161/92 99 Mask 10 12/15/16 06:48 36.5 63 20 149/86 96 Room Air General Appearance: WD/WN, + mild distress Head: normocephalic, atraumatic Eyes: normal inspection, PERRL ENT: normal ENT inspection, hearing grossly normal, TMs normal, pharynx normal Neck: supple, no adenopathy, thyroid normal, no JVD Respiratory/Chest: chest non-tender, lungs clear, normal breath sounds, no respiratory distress Cardiovascular: regular rate, rhythm, no edema, no gallop, no JVD Abdomen/GI: normal bowel sounds, non tender, soft, no organomegaly Back: normal inspection, no CVA tenderness, no muscle spasm, normal range of motion Neurologic/Psych: no motor/sensory deficits, alert, normal mood/affect, normal reflexes Skin: normal color, warm/dry, no rash Assessment & Plan 71 yo male s/p right TKA consulted for post op management Right knee pain s/p right TKA, POD #0, pain controlled at this time with dilaudid, will obtain CBC to monitor for acute blood loss anemia. PT/OT consulted COPD - Cont advair and albuterol PRN, and incentive spirometry, satting in mid 90s on 2l O2 Dyslipidemia - Cont statin DVT ppx with ASA 81 mg BID GI ppx with protonix Pt is FULL CODE
[2016-12-15 13:48] LABS: BASO % 0.2 %; BASO ABS # 0.01 K/uL (0-0.2); COMPLETE YES; HEMATOCRIT 42.8 % (42-52); IG% 0.2 %; LYMPH ABS # 0.59 K/uL (1.2-3.4); MEAN CELL VOLUME 86.1 fL (80-100); MEAN CORPUSCULAR HEMOGLOBIN 28.8 pg (25-34); MEAN CORPUSCULAR HGB CONC 33.4 g/dl (32-36); MEAN PLATELET VOLUME 9.3 fL (7.4-10.4); MONO % 0.4 %; NEUT % 88.2 %; PLATELET COUNT 177 K/uL (130-400); RED BLOOD COUNT 4.97 M/uL (4.7-6.1); WHITE BLOOD COUNT 5.35 K/uL (4.8-10.8)
[2016-12-15] MEDS: D5W AND 1/2NSS + 20MEQ KCL 1,000 ML IV SCH ×2 (13:49→21:45)
[2016-12-15 14:06] LABS: BUN/CREATININE RATIO 23.9 (10-20); CALCIUM 8.3 mg/dl (8.5-10.1); CREATININE 0.7 mg/dl (0.60-1.40); POTASSIUM 4.5 mmol/L (3.5-5.1)
[2016-12-15] MEDS: ACETAMINOPHEN 500 MG TAB PO SCH ×2 (14:13→21:44)
[2016-12-15] MEDS: OXYCODONE HCL IR 5 MG TAB (IMMEDIATE RELEASE) PO PRN (14:30)
[2016-12-15] MEDS ORDERED: NURSING VERBAL MED ORDER ONE ×2 (15:15→16:45)
[2016-12-15] MEDS: CEFAZOLIN IV 1,000 MG in DEXTROSE 5% 50ML 50 ML IV SCH ×2 (17:02→23:37)
[2016-12-15] MEDS: NICOTINE 14 MG/24 HR TDSY TD SCH (17:03)
[2016-12-15] MEDS: FLUTICASONE/SALMETEROL (ADVAIR) 500/50 INH 14 PUFF INH SCH (20:58)
[2016-12-15] MEDS: DOCUSATE SODIUM 100 MG CAP PO SCH (20:58)
[2016-12-15] MEDS: ASPIRIN 81 MG ECTAB PO SCH (20:58)
[2016-12-15] MEDS: PRAVASTATIN SOD 20 MG TAB PO SCH (20:58)
[2016-12-16 03:10] VITALS: BP 112/66; PULSE 72; TEMP 36.6; O2SAT 94
[2016-12-16] MEDS: ACETAMINOPHEN 500 MG TAB PO SCH ×3 (05:42→21:34)
[2016-12-16 07:06] VITALS: BP 112/63; PULSE 81; TEMP 36.4; O2SAT 96
[2016-12-16 07:21] LABS: HEMATOCRIT 34.9 % (42-52); MEAN CELL VOLUME 84.9 fL (80-100); MEAN CORPUSCULAR HEMOGLOBIN 28.5 pg (25-34); MEAN CORPUSCULAR HGB CONC 33.5 g/dl (32-36); MEAN PLATELET VOLUME 9.4 fL (7.4-10.4); PLATELET COUNT 190 K/uL (130-400); RED BLOOD COUNT 4.11 M/uL (4.7-6.1); WHITE BLOOD COUNT 10.78 K/uL (4.8-10.8)
[2016-12-16 07:48] LABS: BUN/CREATININE RATIO 19.6 (10-20); CREATININE 0.77 mg/dl (0.60-1.40); POTASSIUM 4.2 mmol/L (3.5-5.1)
--- NOTE | 2016-12-16 07:58 | Orthopedic Progress Note ---
Orthopedic Progress Note Date of Service December 16, 2016. Subjective Post OP Day: 1 Reports: feeling well, pain controlled w PO medications, Denies: SOB, calf pain , chest pain, complaints, light headedness, nausea / vomiting Additional Notes: c/o some dizziness this AM when he first got out of bed, feels fine laying down. BP, Hgb stable. Objective calves soft nontender, N/V intact, capillary refill less than 2 sec., dressing C /D/I, A&O x3, toes mobile Date Time Temp Pulse Resp B/P Pulse Ox O2 Delivery O2 Flow Rate FiO2 12/16/16 07:06 36.4 81 16 112/63 96 Room Air 12/16/16 03:10 36.6 72 16 112/66 94 Room Air 12/15/16 23:40 Room Air 12/15/16 23:05 36.6 63 16 113/67 94 Room Air 12/15/16 19:45 36.4 61 20 138/74 95 Room Air 12/15/16 15:50 36.6 58 18 127/73 95 Room Air 12/15/16 15:30 Room Air 12/15/16 14:50 36.4 69 16 126/77 97 2.0 12/15/16 13:47 36.4 55 16 126/77 97 2.0 12/15/16 12:50 55 16 125/68 97 2.0 12/15/16 12:20 36.4 55 16 142/79 97 2.0 12/15/16 11:50 36.6 66 14 147/77 95 Nasal Cannula 3.0 12/15/16 11:50 Nasal Cannula 3.0 12/15/16 11:50 95 Nasal Cannula 3.0 12/15/16 11:40 58 16 113/71 93 Nasal Cannula 2 12/15/16 11:30 56 12 114/68 96 Nasal Cannula 2 12/15/16 11:20 36.3 54 8 139/68 96 Nasal Cannula 2 12/15/16 11:10 58 10 114/72 95 Nasal Cannula 2 12/15/16 11:00 59 13 143/81 97 Nasal Cannula 2 12/15/16 10:50 65 11 128/83 96 Nasal Cannula 2 12/15/16 10:40 63 14 152/84 100 Mask 10 12/15/16 10:30 65 12 139/71 99 Mask 10 12/15/16 10:20 61 16 141/82 99 Mask 10 12/15/16 10:16 36.2 67 16 161/92 99 Mask 10 Laboratory Results 24 Hours: Test 12/15/16 13:40 12/16/16 06:19 White Blood Count 5.35 K/uL Red Blood Count 4.97 M/uL Hemoglobin 14.3 g/dL 11.7 g/dL Hematocrit 42.8 % 34.9 % Mean Corpuscular Volume 86.1 fL Mean Corpuscular Hemoglobin 28.8 pg Mean Corpuscular Hemoglobin Concent 33.4 g/dl Platelet Count 177 K/uL Mean Platelet Volume 9.3 fL Neutrophils (%) (Auto) 88.2 % Lymphocytes (%) (Auto) 11.0 % Monocytes (%) (Auto) 0.4 % Eosinophils (%) (Auto) 0.0 % Basophils (%) (Auto) 0.2 % Neutrophils # (Auto) 4.72 K/uL Lymphocytes # (Auto) 0.59 K/uL Monocytes # (Auto) 0.02 K/uL Eosinophils # (Auto) 0.00 K/uL Basophils # (Auto) 0.01 K/uL Assessment & Plan Assessment: POD #1, Right TKA Plan: PT/ OT DVT proph- ASA D/C planning- Home w OPPT per medicine Inhouse Planning Pain Management: Ultram, Dilaudid, PO Tylenol, Oxy IR DVT Prophylaxis: TEDs, SCDs, ASA Discharge Planning Discharge Planning: home with oppt Pain Management: PO Tylenol, Oxy IR DVT Prophylaxis: TEDs, ASA Therapy: Physical Therapy, Occupational Therapy
[2016-12-16] MEDS: FLUTICASONE/SALMETEROL (ADVAIR) 500/50 INH 14 PUFF INH SCH ×2 (08:30→20:46)
[2016-12-16] MEDS: ASPIRIN 81 MG ECTAB PO SCH ×2 (08:30→20:46)
[2016-12-16] MEDS: D5W AND 1/2NSS + 20MEQ KCL 1,000 ML IV SCH (08:30)
[2016-12-16] MEDS: DOCUSATE SODIUM 100 MG CAP PO SCH ×2 (08:30→20:46)
[2016-12-16] MEDS: MULTIVITAMIN TAB PO SCH (08:30)
[2016-12-16] MEDS: PANTOprazole SOD 40 MG TAB PO SCH (08:31)
[2016-12-16] MEDS: NICOTINE 14 MG/24 HR TDSY TD SCH (08:32)
[2016-12-16] MEDS ORDERED: NICOTINE 21 MG/24 HR TDSY TD SCH (09:00)
[2016-12-16 10:51] VITALS: BP 106/59; PULSE 61; TEMP 36.6; O2SAT 97
[2016-12-16 15:04] VITALS: BP 120/66; PULSE 66; TEMP 37; O2SAT 95
--- NOTE | 2016-12-16 15:34 | Progress Note ---
Subjective Date of Service: December 16, 2016. Subjective Pt evaluation today including: conversation w/ patient, physical exam, chart review, lab review, review of studies, review of inpatient medication list Resting comfortably in chair Mild dizziness this AM No chest pain or sob No acute events overnight Problem List Medical Problems: (1) Lumbar back pain with radiculopathy affecting left lower extremity Status: Acute Review of Systems Constitutional: No chills, No fever Respiratory: No cough, No shortness of breath, No sputum, No wheezing Cardiac: No chest pain, No orthopnea Abdomen: No diarrhea, No nausea, No pain, No vomiting Musculoskeletal: + joint pain, No muscle pain Male : No dysuria, No urinary frequency Neurologic: No memory loss, No paralysis Psychiatric: No anhedonism, No depression symptoms Objective Vital Signs Date Time Temp Pulse Resp B/P Pulse Ox O2 Delivery O2 Flow Rate FiO2 12/16/16 15:04 37.0 66 18 120/66 95 Room Air 12/16/16 10:51 36.6 61 16 106/59 97 Room Air 12/16/16 07:40 Room Air 12/16/16 07:06 36.4 81 16 112/63 96 Room Air 12/16/16 03:10 36.6 72 16 112/66 94 Room Air 12/15/16 23:40 Room Air 12/15/16 23:05 36.6 63 16 113/67 94 Room Air 12/15/16 19:45 36.4 61 20 138/74 95 Room Air 12/15/16 15:50 36.6 58 18 127/73 95 Room Air Physical Exam General Appearance: WD/WN, no apparent distress Eyes: normal inspection, PERRL, EOMI, sclerae normal ENT: normal ENT inspection, hearing grossly normal, TMs normal, pharynx normal Neck: supple, no adenopathy, thyroid normal, no JVD Respiratory/Chest: chest non-tender, lungs clear, normal breath sounds, no respiratory distress Cardiovascular: regular rate, rhythm, no edema, no gallop, no JVD Abdomen: normal bowel sounds, non tender, soft, no organomegaly Extremities: no pedal edema, no calf tenderness, normal capillary refill, + pertinent finding (knee in dressing) Neurologic/Psychiatric: no motor/sensory deficits, alert, normal mood/affect, oriented x 3 Laboratory Results Last 24 Hours Test 12/16/16 06:14 5/25/17 06:19 Sodium Level 143 mmol/L Potassium Level 4.2 mmol/L Chloride Level 112 mmol/L Carbon Dioxide Level 24 mmol/L Anion Gap 7.0 mmol/L Blood Urea Nitrogen 15 mg/dl Creatinine 0.77 mg/dl Est Creatinine Clear Calc Drug Dose 78.2 ml/min Estimated GFR () 105.1 Estimated GFR (Non- 90.7 BUN/Creatinine Ratio 19.6 Random Glucose 111 mg/dl Calcium Level 8.0 mg/dl White Blood Count 10.78 K/uL Red Blood Count 4.11 M/uL Hemoglobin 11.7 g/dL Hematocrit 34.9 % Mean Corpuscular Volume 84.9 fL Mean Corpuscular Hemoglobin 28.5 pg Mean Corpuscular Hemoglobin Concent 33.5 g/dl RDW Standard Deviation 52.0 fL RDW Coefficient of Variation 16.8 % Platelet Count 190 K/uL Mean Platelet Volume 9.4 fL Assessment and Plan 71 yo male s/p right TKA consulted for post op management Right knee pain s/p right TKA, POD # 1, pain controlled at this time with dilaudid, Hg stable, cont ASA for DVT ppx, dispo per primary team, plan OPPT on discharge COPD - Cont advair and albuterol PRN, and incentive spirometry, satting in mid 90s on 2l O2 Dyslipidemia - Cont statin DVT ppx with ASA 81 mg BID GI ppx with protonix Pt is FULL CODE
[2016-12-16] MEDS: OXYCODONE HCL IR 5 MG TAB (IMMEDIATE RELEASE) PO PRN (19:22)
[2016-12-16] MEDS: PRAVASTATIN SOD 20 MG TAB PO SCH (20:46)
[2016-12-16 23:03] VITALS: BP 116/68; PULSE 64; TEMP 36.5; O2SAT 96
[2016-12-17] MEDS: OXYCODONE HCL IR 5 MG TAB (IMMEDIATE RELEASE) PO PRN ×2 (00:05→10:10)
[2016-12-17] MEDS: ACETAMINOPHEN 500 MG TAB PO SCH (05:42)
[2016-12-17 07:21] LABS: HEMATOCRIT 29.6 % (42-52); MEAN CELL VOLUME 86.8 fL (80-100); MEAN CORPUSCULAR HGB CONC 33.4 g/dl (32-36); MEAN PLATELET VOLUME 9.2 fL (7.4-10.4); PLATELET COUNT 145 K/uL (130-400); RED BLOOD COUNT 3.41 M/uL (4.7-6.1); WHITE BLOOD COUNT 7.23 K/uL (4.8-10.8)
[2016-12-17 07:53] LABS: CREATININE 0.83 mg/dl (0.60-1.40)
[2016-12-17 07:54] LABS: BUN/CREATININE RATIO 18.2 (10-20); CALCIUM 7.8 mg/dl (8.5-10.1); POTASSIUM 4.2 mmol/L (3.5-5.1)
[2016-12-17] MEDS: PANTOprazole SOD 40 MG TAB PO SCH (08:04)
[2016-12-17] MEDS: FLUTICASONE/SALMETEROL (ADVAIR) 500/50 INH 14 PUFF INH SCH (08:04)
--- NOTE | 2016-12-17 08:06 | Orthopedic Progress Note ---
Orthopedic Progress Note Date of Service December 17, 2016. Subjective Post OP Day: 2 Reports: feeling well, pain controlled w PO medications, Denies: SOB, calf pain , chest pain, complaints, light headedness, nausea / vomiting Objective calves soft nontender, N/V intact, capillary refill less than 2 sec., dressing C /D/I, A&O x3, toes mobile Silverlon in tact. Date Time Temp Pulse Resp B/P Pulse Ox O2 Delivery O2 Flow Rate FiO2 12/17/16 00:10 Room Air 12/16/16 23:03 36.5 64 16 116/68 96 Room Air 12/16/16 15:40 Room Air 12/16/16 15:04 37.0 66 18 120/66 95 Room Air 12/16/16 10:51 36.6 61 16 106/59 97 Room Air Laboratory Results 24 Hours: Test 12/17/16 07:00 Hematocrit 29.6 % Hemoglobin 9.9 g/dL Assessment & Plan Assessment: POD #2, Right TKA Plan: PT/ OT DVT proph- ASA D/C planning- Home w OPPT per medicine Inhouse Planning Pain Management: Ultram, Dilaudid, PO Tylenol, Oxy IR DVT Prophylaxis: TEDs, SCDs, ASA Discharge Planning Discharge Planning: home with oppt Pain Management: PO Tylenol, Oxy IR DVT Prophylaxis: TEDs, ASA Therapy: Physical Therapy, Occupational Therapy
[2016-12-17] MEDS ORDERED: RXC5 PO (08:08)
[2016-12-17] MEDS ORDERED: ACET-1138 PO (08:08)
[2016-12-17] MEDS ORDERED: ASPEC81 PO (08:08)
--- NOTE | 2016-12-17 08:09 | Discharge Instructions ---
Discharge Instructions Date of Service December 17, 2016. Admission Reason for Admission: Right Knee Degenerative Joint Disease Discharge Discharge Diagnosis / Problem: Right TKA Discharge Goals Goal(s): Improve function Activity Recommendations Activity Limitations: as noted below . Instructions / Follow-Up Instructions / Follow-Up ACTIVITY RECOMMENDATIONS: SELF CARE INSTRUCTIONS AFTER TOTAL KNEE REPLACEMENT A. You may need to continue a physical therapy program after discharge from the hospital. There are several options available to you. Your doctor will assist you in selecting the best one for you. 1. An out-patient facility 2 to 3 times a week for therapy or home therapy. 2. Continue working on all exercises taught to you in the hospital. Your goals should be to increase bending of your knee to 90 degrees and beyond and to fully straighten your knee. B. You may progress at your own pace from walking with a walker or crutches to a cane; then to no assistive devices. C. Make walking a part of your daily routine. Be up as much as comfortable with rest periods throughout the day. Rest with leg elevation is very important. Use the ice wrap frequently for the first 3-4 weeks. D. There are no restrictions on activities. You may ride in a car, shop, participate in income tax analyst and all social activities. E. Wear the long elastic stockings (REMEDIOS hose) 20 hours a day for 2 weeks after surgery. They can be removed several times a day for laundering and for a bath. F. You may shower, no tub baths until cleared by your doctor. SPECIAL CARE INSTRUCTIONS: VERY IMPORTANT TO READ AND REVIEW A. There are a few signs you need to watch for after you are home. Call [facility] if you notice any of the followin. Increased severe knee pain. Some pain is expected especially when you exercise. 2. Increased swelling in your leg or knee; pain or swelling of the calf muscle in either lower leg. 3. Any fluid drainage from the incision. 4. Shortness of breath or chest pain. B. Please call [facility] at if you have any concerns or questions about your operation or recovery. The doctor or his nurse will return your call promptly. C. You must take antibiotics before dental work, bladder, bowel or other surgery. Your doctor will provide you with a permanent care to carry describing this precaution. IMPORTANT: * REMEMBER TO TAKE ASPIRIN, 81 MG, TWICE DAILY FOR 4 WEEKS UNLESS OTHERWISE DIRECTED. THIS IS YOUR BLOOD THINNER. * HIGH RISK PATIENTS MAY BE PRESCRIBED A STRONGER BLOOD THINNER. THIS WILL BE PROVIDED AT DISCHARGE. * CALL IF INCREASED PAIN, REDNESS, DRAINAGE OR FEVER GREATER THAT 101. * WEAR REMEDIOS HOSE 20 HOURS PER DAY FOR 2 WEEKS. * YOU MAY HAVE A LARGE BAND-AID LIKE DRESSING (SILVERON). THIS WILL REMAIN ON YOUR INCISION FOR 7 DAYS, THEN CAN BE REMOVED. IF INCISION IS LEAKING THROUGH DRESSING, CALL THE OFFICE . FOLLOW UP VISIT: If appointment is not already scheduled: Please call [facility] to make a follow-up appointment for 2 weeks after your surgery at . Current Hospital Diet Patient's current hospital diet: Regular Diet Discharge Diet Recommended Diet: Regular Diet Procedures Procedures Performed: Right Total Knee Arthroplasty; Cemented Pending Studies Studies pending at discharge: no Laboratory Results Hemoglobin A1c Test 11/12/16 14:04 Range/Units Estimated Average Glucose 97 mg/dl Hemoglobin A1c 5.0 4.5-5.6 % Medical Emergencies . Who to Call and When: Medical Emergencies: If at any time you feel your situation is an emergency, please call 911 immediately. . Non-Emergent Contact Non-Emergency issues call your: Primary Care Provider . "Provider Documentation" section prepared by Russell Elmore. . VTE Core Measure Inpt VTE Proph given/why not?: Other Anticoagulation (asa), T.E.D. Stockings, SCD's [place] Drug Monitoring Program Search Results: patient reviewed within database, no issues identified
[2016-12-17 08:13] VITALS: BP 143/68; PULSE 62; TEMP 36.6; O2SAT 97
--- NOTE | 2016-12-17 09:53 | Clinical Documentation Query ---
Mr. DURAN,RIAN : CLINICAL DOCUMENTATION QUERY Patient is a 71 year old male who underwent right TKA on 12/15. EBL to date is 1,045 ml's. Preoperative H&H was 14.3 g/dl and 42.8%. POD #2, repeat values are 9.9 g/dl and 29.6%. Patient has been monitored with serial hematology and I/O including RENNY drain outputs. As appropriate, consider documentation as suggested below. Thank you. In your clinical opinion is this patient being managed for: ( ) Acute blood loss anemia ( ) Other explanation of clinical findings (Please Explain) ( ) Unable to determine (Please Define) ( ) Need to Discuss ( ) Not Agree The medical record reflects the following clinical findings, treatment, and risk factors. Clinical Indicators: As above Treatment:Patient has been monitored with serial hematology and I/O including RENNY drain outputs Risk Factors: Acute perioperative blood losses. Please clarify and document your clinical opinion in the progress notes and discharge summary. Terms such as "probable", "suspected", "likely", "questionable", "possible", or "still to be ruled out" are acceptable. IF IN AGREEMENT, YOU MUST DOCUMENT ABOVE DIAGNOSTIC STATEMENT IN DAILY PROGRESS NOTES AND DISCHARGE SUMMARY. This document is not part of the patient's record. Thank You, Richard Mac RN [phone]
[2016-12-17] MEDS: DOCUSATE SODIUM 100 MG CAP PO SCH (10:02)
[2016-12-17] MEDS: MULTIVITAMIN TAB PO SCH (10:02)
[2016-12-17] MEDS: ASPIRIN 81 MG ECTAB PO SCH (10:02)
[2016-12-17] MEDS: NICOTINE 14 MG/24 HR TDSY TD SCH (10:03)
[2016-12-17 12:22] VITALS: BP 143/68; PULSE 62; TEMP 36.6; O2SAT 97
--- NOTE | 2016-12-22 15:49 | DISCHARGE SUMMARY ---
HISTORY OF PRESENT ILLNESS: This is a 71-year-old male patient of Dr. Guevara's complaining of chronic right knee pain, long-standing progressively getting worse. The patient has failed conservative treatment and elected to proceed with a right total knee arthroplasty. PAST MEDICAL HISTORY: COPD, osteoarthritis, spine problems, upper back problems, sciatica and dental issues. POSTOPERATIVE COURSE: The patient underwent a right total knee arthroplasty on 12/15/2016. He was followed closely with medical consultation, DVT prophylaxis in the form of aspirin, physical therapy and pain control. He did very well postoperatively and was discharged home on postoperative day #2. PHYSICAL EXAMINATION: Right knee Silverlon dressing was clean, dry and intact. There was no redness or drainage. He had no calf tenderness. Negative Homans sign. Neurologically and neurovascularly he was intact in his right lower extremity. DIAGNOSES: Right knee end-stage osteoarthritis, status post total knee arthroplasty with a history of chronic obstructive pulmonary disease, osteoarthritis, spine problems, back problems, sciatica and dental issues. PLAN: The patient was discharged home with outpatient physical therapy. He will continue his preadmission medications, pain medications were added. He will continue aspirin twice daily for DVT prophylaxis and follow up with Dr. Guevara as scheduled as an outpatient.
== END 2016-12-17 13:10 | disposition home or self-care (01) | DRG 470 ==
LOC: ENRESERVTM → ENRESERVDT → C.ACU 06:17 → C.MSW 07:07
PROVIDERS: ADMIT Orthopaedic Surgery Sports Medicine; ATTEND Orthopaedic Surgery Sports Medicine
PROC: 0SRC0J9 Replacement of Right Knee Joint with Synthetic Substitute, Cemented, Open Approach (ICD-10-PCS; principal; 2016-12-15 08:30)
DX: M17.9 Osteoarthritis of knee, unspecified (principal); G89.29 Other chronic pain; J44.9 Chronic obstructive pulmonary disease, unspecified; M54.30 Sciatica, unspecified side; F17.210 Nicotine dependence, cigarettes, uncomplicated; E78.5 Hyperlipidemia, unspecified; Z79.899 Other long term (current) drug therapy; Z88.1 Allergy status to other antibiotic agents; Z88.5 Allergy status to narcotic agent

== ENCOUNTER 2016-12-20 10:50 | Observation (INO) | payer OTHER, MEDICARE ==
[~2016-12-20] VITALS: Ht 167.6 cm; Wt 78.3 kg
[~2016-12-20 10:50] MED LIST changes: +ACET-1138 PO; -ACET-1256 PO; -ACETAMINOPHEN 500 MG TAB PO SCH; +ASPEC81 PO; -CEFAZOLIN 1000MG/55 ML D5W 55 ML IV SCH; -CeleBREX 200 MG CAP PO SCH; -DEXAMETHASONE 4 MG TAB PO SCH; -FAMOTIDINE 20 MG TAB PO SCH; -GABAPENTIN 300 MG CAP PO SCH; -LACTATED RINGER'S 1000ML 1,000 ML IV SCH; -LACTATED RINGER'S 1000ML 500 ML IV ONE; -LACTATED RINGER'S 1000ML IV SCH; -OXYC1TAB3 PO; -ROPIVACAINE 5MG/ML 30 ML 150 MG, BUPIVACAINE/EPINEPHR 0.5% MPF 30 ML, KETOROLAC TROMETH... INFIL SCH
[2016-12-20 11:19] LABS: BASO % 0.3 %; BASO ABS # 0.02 K/uL (0-0.2); COMPLETE YES; EOS % 2.3 %; HEMATOCRIT 33.9 % (42-52); IG% 0.3 %; LYMPH % 36.3 %; LYMPH ABS # 2.55 K/uL (1.2-3.4); MEAN CELL VOLUME 85.4 fL (80-100); MEAN CORPUSCULAR HEMOGLOBIN 27.7 pg (25-34); MEAN CORPUSCULAR HGB CONC 32.4 g/dl (32-36); MEAN PLATELET VOLUME 9.1 fL (7.4-10.4); MONO % 8.5 %; NEUT % 52.3 %; PLATELET COUNT 232 K/uL (130-400); RED BLOOD COUNT 3.97 M/uL (4.7-6.1); WHITE BLOOD COUNT 7.03 K/uL (4.8-10.8)
--- NOTE | 2016-12-20 11:21 | DIAGNOSTIC IMAGING REPORT ---
CHEST ONE VIEW PORTABLE HISTORY: Atypical CHEST PAIN COMPARISON: Chest 08/19/2016. FINDINGS: Chronic elevation of the right hemidiaphragm with right basilar subsegmental atelectasis. This remains unchanged. The left lung is clear. No pleural effusions. No pneumothorax. The heart is normal in size. Cervical spinal fusion hardware is again noted. IMPRESSION: No significant change compared to the prior study. No acute process. Electronically signed by: Jeremy Burkett M.D. 12/20/2016 11:20 AM Dictated Date/Time: 12/20/2016 11:19 AM
[2016-12-20 11:34] LABS: POINT OF CARE PRO-BNP 331 pg/ml (0-900)
[2016-12-20 11:36] LABS: INR 0.9 (0.9-1.1); PROTHROMBIN TIME (PATIENT) 9.5 SECONDS (9.0-12.0)
[2016-12-20 11:37] LABS: CALCIUM 8.7 mg/dl (8.5-10.1); CREATININE 0.81 mg/dl (0.60-1.40)
[2016-12-20] MEDS ORDERED: CLB/200 PO (11:39)
[2016-12-20 11:43] LABS: CKMB/CK RATIO 1.7 (0-3.0)
[2016-12-20] MEDS ORDERED: SODIUM CHLORIDE 0.9% 1000ML 1,000 ML IV STA (11:52)
[2016-12-20] MEDS ORDERED: ALBUTEROL 0.083% NEBU SOLN 3 ML VIAL INH STA (11:52)
--- NOTE | 2016-12-20 11:59 | EMERGENCY ROOM VISIT NOTE ---
History Report prepared by Bebeto: Nanette Pacheco Under the Supervision of: Dr. Richard Parker M.D. First contact with patient: 11:00 Chief Complaint: CARDIAC ASSESSMENT Stated Complaint: CHEST,SOB,WEAKNESS,TROUBLE SEEING,NAUSEA History of Present Illness The patient is a 71 year old male who presents to the Emergency Room for a cardiac assessment. The patient was experiencing chest pain last night. He states that it felt like he "had a ball" stuck in his chest. He has not had any chest pain since last night. The patient is feeling slightly short of breath with a slight cough. He reports that his pain last night was worsened with taking a deep breath. The patient had right knee replacement surgery 5 days ago. He has not been feeling well since the surgery. His fiance reports that the patient's hemoglobin was 9 when he was discharged after his surgery. The patient is taking aspirin twice daily. He denies any significant cardiac history and any personal history of blood clots. Source of History: patient, spouse/significant other Onset: last night Position: chest Quality: other (felt like something was stuck) Timing: resolved Modifying Factors (Worsening): breathing Associated Symptoms: + SOB, + cough Review of Systems See HPI for pertinent positives & negatives. A total of 10 systems reviewed and were otherwise negative. Past Medical & Surgical Medical Problems: (1) Chest pain (2) Lumbar stenosis with neurogenic claudication (3) Right knee DJD Old medical records were reviewed. Nurse's notes were reviewed and I agree with. Family History No pertinent history stated. Social History Smoking Status: Current Every Day Smoker Alcohol Use: occasionally Drug Use: none Marital Status: in relationship Housing Status: lives with significant other Occupation Status: employed Current/Historical Medications Scheduled Acetaminophen (Tylenol Extra Strength), 1,000 MG PO Q8H Aspirin (Aspirin EC Low Dose), 81 MG PO BID Celecoxib (CeleBREX), 200 MG PO BID Fluticasone Prop/Salmeterol (Advair Diskus 500/50 60 Dose), 1 PUFF INH BID Pravastatin (Pravachol ), 10 MG PO QPM Senna/Docusate Sod (Senokot S), 1 TAB PO PRN Scheduled PRN Albuterol (Ventolin Hfa), 2 PUFFS INH Q4 PRN for SOB/Wheezing Oxycodone HCl (Oxycodone HCl), 5-10 MG PO Q4H PRN for Moderate - severe pain Allergies Coded Allergies: Moxifloxacin (Verified Allergy, Unknown, rash per PCP note, 12/20/16) Morphine (Verified Adverse Reaction, Intermediate, SEVERE DROP IN BP, 12/20) Physical Exam Vital Signs Date Time Temp Pulse Resp B/P Pulse Ox O2 Delivery O2 Flow Rate FiO2 12/20/16 13:30 64 18 131/63 97 Room Air 12/20/16 12:36 83 12/20/16 12:30 90 18 116/60 94 Room Air 12/20/16 11:30 60 16 104/64 97 Room Air 12/20/16 11:12 58 12/20/16 11:11 98 Room Air 12/20/16 10:55 36.9 70 18 139/80 95 Physical Exam General: Well developed well nourished non ill appearing older male in no acute distress, breathing comfortably on room air. Normal speech HEENT: Normal cephalic atraumatic. Pupils are equal round and reactive to light. Sclerae anicteric. Extraocular movements are intact. Oropharynx is pink with moist mucous membranes. No swelling of the mouth lips or tongue. Neck: Supple with a midline trachea. No meningeal signs or stiffness, no JVD or bruits. No Stridor. Chest: Lungs have some rhonchi in the left base. No wheezes. No increased work of breathing. Heart: regular rate and rhythm. Abdomen: Soft nontender, nondistended without rebound guarding or rigidity. Extremities: He has a large bandage on the right knee from recent knee surgery, no surrounding redness. There is some post-op edema. Normal distal pulses. No calf tenderness or assymetry Spine/Back. Non tender to palpation. No CVA tenderness Skin: Good turgor without rashes. Neurologic exam: Cranial nerves two through 12 are intact. Motor and sensation are intact and symmetrical throughout. Medical Decision & Procedures ER Provider Diagnostic Interpretation: Radiology results as stated below per my review and radiologist interpretation: CHEST ONE VIEW PORTABLE HISTORY: Atypical CHEST PAIN COMPARISON: Chest 08/19/2016. FINDINGS: Chronic elevation of the right hemidiaphragm with right basilar subsegmental atelectasis. This remains unchanged. The left lung is clear. No pleural effusions. No pneumothorax. The heart is normal in size. Cervical spinal fusion hardware is again noted. IMPRESSION: No significant change compared to the prior study. No acute process. Electronically signed by: Jeremy Burkett M.D. 12/20/2016 11:20 AM Dictated Date/Time: 12/20/2016 11:19 AM CHEST CTA for PULMONARY ARTERIES CT DOSE: 352.43 mGy.cm HISTORY: Short of breath. Recent surgery. Sternal pain. TECHNIQUE: Multiaxial CT images of the chest were performed following the intravenous administration of contrast to evaluate the pulmonary arteries. Maximal intensity projection images were also obtained. COMPARISON STUDY: Chest CTA 08/25/2016. FINDINGS: No evidence for an aortic dissection. No filling defects within the pulmonary arteries to suggest pulmonary embolus. The heart is normal in size. No pleural or pericardial effusions. Stable hypodense lesions within the liver which likely represent cysts. The spleen and visualized adrenal glands are unremarkable. No fractures within the visualized osseous structures. No mediastinal or hilar lymphadenopathy. Cervical spinal fusion hardware is again noted. No pneumothorax. The central airways are patent. Chronic elevation the right hemidiaphragm with right basilar subsegmental atelectasis. This remains unchanged. No new focal lung consolidations to suggest pneumonia. Stable nodular densities within the central aspect of the right lower lobe abutting the bronchi. The largest nodule measures 8 mm. These likely represent prominent bronchial lymph node. Small amount of mucoid material within the right mainstem bronchus. IMPRESSION: 1. No evidence for pulmonary embolus. 2. Stable chronic elevation of right hemidiaphragm with right basilar subsegmental atelectasis. No new focal lung consolidations. 3. Small amount of mucoid material within the right mainstem bronchus. 4. Small nodular densities within the central aspect of the right lower lobe abutting the bronchi which remain stable. These likely represent prominent bronchial lymph nodes. Electronically signed by: Jeremy Burkett M.D. 12/20/2016 12:33 PM Dictated Date/Time: 12/20/2016 12:25 PM Laboratory Results 12/20/16 11:01 Red Blood Count 3.97, Mean Corpuscular Volume 85.4, Mean Corpuscular Hemoglobin 27.7, Mean Corpuscular Hemoglobin Concent 32.4, Mean Platelet Volume 9.1, Neutrophils (%) (Auto) 52.3, Lymphocytes (%) (Auto) 36.3, Monocytes (%) (Auto) 8.5, Eosinophils (%) (Auto) 2.3, Basophils (%) (Auto) 0.3, Neutrophils # (Auto) 3.68, Lymphocytes # (Auto) 2.55, Monocytes # (Auto) 0.60, Eosinophils # (Auto) 0.16, Basophils # (Auto) 0.02 12/20/16 11:01 Test 12/20/16 11:01 12/20/16 11:09 12/20/16 11:11 White Blood Count 7.03 K/uL (4.8-10.8) Red Blood Count 3.97 M/uL (4.7-6.1) Hemoglobin 11.0 g/dL (14.0-18.0) Hematocrit 33.9 % (42-52) Mean Corpuscular Volume 85.4 fL (80-100) Mean Corpuscular Hemoglobin 27.7 pg (25-34) Mean Corpuscular Hemoglobin Concent 32.4 g/dl (32-36) Platelet Count 232 K/uL (130-400) Mean Platelet Volume 9.1 fL (7.4-10.4) Neutrophils (%) (Auto) 52.3 % Lymphocytes (%) (Auto) 36.3 % Monocytes (%) (Auto) 8.5 % Eosinophils (%) (Auto) 2.3 % Basophils (%) (Auto) 0.3 % Neutrophils # (Auto) 3.68 K/uL (1.4-6.5) Lymphocytes # (Auto) 2.55 K/uL (1.2-3.4) Monocytes # (Auto) 0.60 K/uL (0.11-0.59) Eosinophils # (Auto) 0.16 K/uL (0-0.5) Basophils # (Auto) 0.02 K/uL (0-0.2) RDW Standard Deviation 53.8 fL (36.4-46.3) RDW Coefficient of Variation 16.8 % (11.5-14.5) Immature Granulocyte % (Auto) 0.3 % Immature Granulocyte # (Auto) 0.02 K/uL (0.00-0.02) Prothrombin Time 9.5 SECONDS (9.0-12.0) Prothromb Time International Ratio 0.9 (0.9-1.1) Activated Partial Thromboplast Time 25.5 SECONDS (21.0-31.0) Partial Thromboplastin Ratio 1.0 Anion Gap 4.0 mmol/L (3-11) Est Creatinine Clear Calc Drug Dose 74.3 ml/min Estimated GFR () 102.9 Estimated GFR (Non- 88.8 BUN/Creatinine Ratio 16.0 (10-20) Calcium Level 8.7 mg/dl (8.5-10.1) Total Bilirubin 0.7 mg/dl (0.2-1) Direct Bilirubin 0.2 mg/dl (0-0.2) Aspartate Amino Transf (AST/SGOT) 22 U/L (15-37) Alanine Aminotransferase (ALT/SGPT) 32 U/L (12-78) Alkaline Phosphatase 64 U/L (45-117) Total Creatine Kinase 58 U/L (39-308) Creatine Kinase MB 1.0 ng/ml (0.5-3.6) Total Protein 6.7 gm/dl (6.4-8.2) Albumin 3.3 gm/dl (3.4-5.0) Lipase 143 U/L (73-393) Creatine Kinase MB Ratio (0-3.0) Bedside D-Dimer > 450 ng/mlFEU (0-450) Bedside Troponin I 0.000 ng/ml (0-0.045) ED-Nlr-V-Type Natriuretic Peptide 331 pg/ml (0-900) Laboratory studies as stated above per my review. Medications Administered Medications (Trade) Dose Ordered Sig/Crystal Route Start Time Stop Time Status Last Admin Dose Admin Sodium Chloride (Nss 1000ml) 1,000 ml @ 999 mls/hr Q1H1M STAT IV 12/20/16 11:52 12/20/16 12:52 DC 12/20/16 11:58 999 MLS/HR Albuterol Sulfate (Ventolin 0.083% 2.5MG/3ML Neb) 2.5 mg NOW STAT INH 12/20/16 11:52 12/20/16 11:54 DC 12/20/16 11:58 2.5 MG ECG Indication: chest pain Rate (beats per minute): 60 Rhythm: normal sinus Findings: nonspecific-ST abn, no acute ischemic change, no ectopy, other (poor baseline) Comparison ECG Date: 08/25/16 Change: no significant change ED Course 1100: Past medical records reviewed. The patient was evaluated in room C6, and a complete history and physical examination were performed. 1151: I reevaluated the patient and he is currently feeling dizzy. 1152: Albuterol sulfate 2.5 mg INH, NSS 1000 ml @ 999 mls/hr IV 1314: The patient states that he is still feeling dizzy at this time. I discussed the results and treatment plan with the patient. I answered all pertaining questions that he had. He expressed understanding and verbalized agreement. 1321: I spoke with Dr. Ledesma. We discussed the patient's results and treatment plan. The patient will be evaluated by the [facility] for further management. Medical Decision Differential diagnoses includes PE, acute coronary syndrome, arrhythmia, COPD exacerbation, anemia, infection, electrolyte or metabolic abnormality. Medication Reconciliation: I attest that I have personally reviewed the patient' s current medication list. Blood pressure Screening: Patient was found to have normal blood pressure on screening and does not require follow-up. This patient comes in as described above. He was placed in room C6. He is here for treatment and evaluation of chest pain and shortness of breath. He had recent right knee surgery and had chest pain last night and that seems to have resolved now. He has some mild residual shortness of breath. He says he' s never had anything quite like this before. No history of PE. IV access was established , EKG , and chest x-ray obtained. EKG does not suggest acute coronary syndrome or arrhythmia. Chest x-ray does not suggest congestive heart failure, pneumonia, or pneumothorax. I did do a chest CT and there is no evidence of PE. Troponin is not elevated. He was given IV hydration and he does say he feels dizzy however his vitals are stable. He's not hypoxemic . He was given albuterol neb without much change in his symptoms he does not appear short of breath. I do think he needs a rule out for acute cardiac event. I have consulted the [facility] hospitalist. They saw him in the ER and will admit him for these measures. Consults Time Called: 1319 Consulting Physician: Dr. Ledesma Returned Call: [address] Ledesma. We discussed the patient's results and treatment plan. The patient will be evaluated by the [facility] for further management. Impression Primary Impression: Precordial chest pain Additional Impression: Shortness of breath Scribe Attestation The scribe's documentation has been prepared under my direction and personally reviewed by me in its entirety. I confirm that the note above accurately reflects all work, treatment, procedures, and medical decision making performed by me. Departure Information Dispostion Being Evaluated By Hospitalist Referrals Urbano Bethea PA-C (PCP) Patient Instructions My [facility] Problem Qualifiers
[2016-12-20] MEDS ORDERED: OPTIRAY 320 IV PRN (12:15)
--- NOTE | 2016-12-20 12:35 | DIAGNOSTIC IMAGING REPORT ---
CHEST CTA for PULMONARY ARTERIES CT DOSE: 352.43 mGy.cm HISTORY: Short of breath. Recent surgery. Sternal pain. TECHNIQUE: Multiaxial CT images of the chest were performed following the intravenous administration of contrast to evaluate the pulmonary arteries. Maximal intensity projection images were also obtained. COMPARISON STUDY: Chest CTA 08/25/2016. FINDINGS: No evidence for an aortic dissection. No filling defects within the pulmonary arteries to suggest pulmonary embolus. The heart is normal in size. No pleural or pericardial effusions. Stable hypodense lesions within the liver which likely represent cysts. The spleen and visualized adrenal glands are unremarkable. No fractures within the visualized osseous structures. No mediastinal or hilar lymphadenopathy. Cervical spinal fusion hardware is again noted. No pneumothorax. The central airways are patent. Chronic elevation the right hemidiaphragm with right basilar subsegmental atelectasis. This remains unchanged. No new focal lung consolidations to suggest pneumonia. Stable nodular densities within the central aspect of the right lower lobe abutting the bronchi. The largest nodule measures 8 mm. These likely represent prominent bronchial lymph node. Small amount of mucoid material within the right mainstem bronchus. IMPRESSION: 1. No evidence for pulmonary embolus. 2. Stable chronic elevation of right hemidiaphragm with right basilar subsegmental atelectasis. No new focal lung consolidations. 3. Small amount of mucoid material within the right mainstem bronchus. 4. Small nodular densities within the central aspect of the right lower lobe abutting the bronchi which remain stable. These likely represent prominent bronchial lymph nodes. Electronically signed by: Jeremy Burkett M.D. 12/20/2016 12:33 PM Dictated Date/Time: 12/20/2016 12:25 PM
[2016-12-20] MEDS ORDERED: MAGNESIUM HYDROXIDE SUSP 30 ML UDC PO PRN (14:15)
[2016-12-20] MEDS ORDERED: BISACODYL 10 MG SUPP PR PRN (14:15)
[2016-12-20] MEDS ORDERED: ONDANSETRON INJ 2 MG/ML 2 ML VIAL IV PRN (14:15)
[2016-12-20] MEDS ORDERED: ACETAMINOPHEN 325 MG TAB PO PRN (14:15)
[2016-12-20] MEDS ORDERED: ALUMINUM/MAGNESIUM/SIMETH (MAALOX MAX) 30 ML UDC PO PRN (14:15)
[2016-12-20] MEDS ORDERED: ALBUT/IPRATROP 3MG/0.5MG NEB 3 ML VIAL INH PRN (14:15)
--- NOTE | 2016-12-20 14:33 | History and Physical ---
History & Physical Date & Time of Service: December 20, 2016 at 14:22 Chief Complaint: Chest,Sob,Weakness,Trouble Seeing,Nausea Primary Care Physician: Urbano Bethea PA-C History of Present Illness Source: patient, spouse, hospital records Patient is a pleasant 71-year-old male presents emergency department with complaints of "just not feeling well." The patient notes that he had some chest pain last night. He is unable to describe for me. It lasted for a few minutes. He also has felt short of breath over the last 2 days. He denies any productive cough. He denies any fever or chills. He is also complaining of feeling lightheaded when he stands up. The patient has his right knee replaced on 12/16. He has been doing fairly well with the pain. He only is taking oxycodone twice daily. He was also instructed to start Celebrex 200 mg daily which he started yesterday. He denies any increased pain in the knee. He does note he has not had a bowel movement in approximately one week. He has been taking MiraLAX and senna at home with no relief. He denies any abdominal pain or nausea. He has had a poor appetite over the last several days. Past Medical/Surgical History COPD Hyperlipidemia Tobacco abuse Family History Mother in her 80s of cardiac complications Father in his 70s of cancer Social History Smoking Status: Current Every Day Smoker (smokes a half pack to a pack of cigarettes daily) Alcohol Use: socially Drug Use: none Marital Status: in relationship Housing status: lives with significant other Occupational Status: employed Immunizations History of Influenza Vaccine: Unknown Influenza Vaccine Date: Jun 09, 2010 History of Tetanus Vaccine?: Unknown History of Pneumococcal: Unknown Pneumococcal Date: Jun 09, 2010 History of Hepatitis B Vaccine: Unknown Allergies Coded Allergies: Moxifloxacin (Verified Allergy, Unknown, rash per PCP note, 12/20/16) Morphine (Verified Adverse Reaction, Intermediate, SEVERE DROP IN BP, 12/20) Home Medications Scheduled Acetaminophen (Tylenol Extra Strength), 1,000 MG PO Q8H Aspirin (Aspirin EC Low Dose), 81 MG PO BID Celecoxib (CeleBREX), 200 MG PO BID Fluticasone Prop/Salmeterol (Advair Diskus 500/50 60 Dose), 1 PUFF INH BID Pravastatin (Pravachol ), 10 MG PO QPM Senna/Docusate Sod (Senokot S), 1 TAB PO PRN Scheduled PRN Albuterol (Ventolin Hfa), 2 PUFFS INH Q4 PRN for SOB/Wheezing Oxycodone HCl (Oxycodone HCl), 5-10 MG PO Q4H PRN for Moderate - severe pain Review of Systems 10 system review performed and negative unless noted in HPI or below Physical Exam Vital Signs Date Time Temp Pulse Resp B/P Pulse Ox O2 Delivery O2 Flow Rate FiO2 12/20/16 13:30 64 18 131/63 97 Room Air 12/20/16 12:36 83 12/20/16 12:30 90 18 116/60 94 Room Air 12/20/16 11:30 60 16 104/64 97 Room Air 12/20/16 11:12 58 12/20/16 11:11 98 Room Air 12/20/16 10:55 36.9 70 18 139/80 95 General Appearance: no apparent distress Head: normocephalic Eyes: EOMI Neck: no JVD Respiratory/Chest: lungs clear Cardiovascular: regular rate, rhythm, no murmur Abdomen/GI: normal bowel sounds, non tender, soft Extremities/Musculoskelatal: + swelling (significant ecchymosis noted to the right knee. Associated trace pitting edema and discoloration of the suarez. No edema noted in the left lower extremity) Neurologic/Psych: no motor/sensory deficits, oriented x 3 Skin: warm/dry Diagnostics Laboratory Results Results Past 24 Hours Test 12/20/16 11:01 12/20/16 11:09 12/20/16 11:11 Range/Units White Blood Count 7.03 4.8-10.8 K/uL Red Blood Count 3.97 4.7-6.1 M/uL Hemoglobin 11.0 14.0-18.0 g/dL Hematocrit 33.9 42-52 % Mean Corpuscular Volume 85.4 80-100 fL Mean Corpuscular Hemoglobin 27.7 25-34 pg Mean Corpuscular Hemoglobin Concent 32.4 32-36 g/dl Platelet Count 232 130-400 K/uL Mean Platelet Volume 9.1 7.4-10.4 fL Neutrophils (%) (Auto) 52.3 % Lymphocytes (%) (Auto) 36.3 % Monocytes (%) (Auto) 8.5 % Eosinophils (%) (Auto) 2.3 % Basophils (%) (Auto) 0.3 % Neutrophils # (Auto) 3.68 1.4-6.5 K/uL Lymphocytes # (Auto) 2.55 1.2-3.4 K/uL Monocytes # (Auto) 0.60 0.11-0.59 K/uL Eosinophils # (Auto) 0.16 0-0.5 K/uL Basophils # (Auto) 0.02 0-0.2 K/uL RDW Standard Deviation 53.8 36.4-46.3 fL RDW Coefficient of Variation 16.8 11.5-14.5 % Immature Granulocyte % (Auto) 0.3 % Immature Granulocyte # (Auto) 0.02 0.00-0.02 K/uL Prothrombin Time 9.5 9.0-12.0 SECONDS Prothromb Time International Ratio 0.9 0.9-1.1 Activated Partial Thromboplast Time 25.5 21.0-31.0 SECONDS Partial Thromboplastin Ratio 1.0 Sodium Level 142 136-145 mmol/L Potassium Level 4.0 3.5-5.1 mmol/L Chloride Level 106 98-107 mmol/L Carbon Dioxide Level 32 21-32 mmol/L Anion Gap 4.0 3-11 mmol/L Blood Urea Nitrogen 13 7-18 mg/dl Creatinine 0.81 0.60-1.40 mg/dl Est Creatinine Clear Calc Drug Dose 74.3 ml/min Estimated GFR () 102.9 Estimated GFR (Non- 88.8 BUN/Creatinine Ratio 16.0 10-20 Random Glucose 98 70-99 mg/dl Calcium Level 8.7 8.5-10.1 mg/dl Total Bilirubin 0.7 0.2-1 mg/dl Direct Bilirubin 0.2 0-0.2 mg/dl Aspartate Amino Transf (AST/SGOT) 22 15-37 U/L Alanine Aminotransferase (ALT/SGPT) 32 12-78 U/L Alkaline Phosphatase 64 45-117 U/L Total Creatine Kinase 58 39-308 U/L Creatine Kinase MB 1.0 0.5-3.6 ng/ml Creatine Kinase MB Ratio 1.7 0-3.0 Total Protein 6.7 6.4-8.2 gm/dl Albumin 3.3 3.4-5.0 gm/dl Lipase 143 73-393 U/L Bedside D-Dimer > 450 0-450 ng/mlFEU Bedside Troponin I 0.000 0-0.045 ng/ml MC-Ndn-W-Type Natriuretic Peptide 331 0-900 pg/ml Diagnostic Radiology Patient Name: ROSELINE AMEZQUITA JR Unit Number: [id number] Dictated: 12/20/161224 Transcribed: 12/20/161224 PA Printed Date/Time: [~ rep prt dt]/[~ rep prt tm] [~ rep ct labl] - [~ rep ct ivnm] [facility] [place] [address] Dictated: 12/20/161224 Transcribed: 12/20/161224 PA Printed Date/Time: [~ rep prt dt]/[~ rep prt tm] [~ rep ct labl] - [~ rep ct ivnm] Patient: ROSELINE AMEZQUITA JR Address1: [address] [place] [address] Rec: [id number] Address2: Acct ID: [id number] [facility] Zip: [place] [address] Date: 1945 Sex: M Room/Bed: Ref Phy: Urbano Bethea PA-C SC: TERRI Att Phy: Report #: [id number] Cat Phy: Urbano Bethea PA-C Test: CXPEA Admit Phy: [employer] Offbearer: GEORGE Interpreting Phy: Jeremy Burkett MD Diagnosis: CHEST,SOB,WEAKNESS, TROUBLE SEEING,NAUSEA Ordering Phy: Richard Parker M.D. Service Date: 12/20/16 Admit Date: 12/20/16 MNE: [id number] CONF: DICTATED BY: Jeremy Burkett M.D.]] CC: Urbano Bethea PA-C, Brian D., M.D. Endcc: [~ rep ct add3]] CHEST CTA for PULMONARY ARTERIES CT DOSE: 352.43 mGy.cm HISTORY: Short of breath. Recent surgery. Sternal pain. TECHNIQUE: Multiaxial CT images of the chest were performed following the intravenous administration of contrast to evaluate the pulmonary arteries. Maximal intensity projection images were also obtained. COMPARISON STUDY: Chest CTA 08/25/2016. FINDINGS: No evidence for an aortic dissection. No filling defects within the pulmonary arteries to suggest pulmonary embolus. The heart is normal in size. No pleural or pericardial effusions. Stable hypodense lesions within the liver which likely represent cysts. The spleen and visualized adrenal glands are unremarkable. No fractures within the visualized osseous structures. No mediastinal or hilar lymphadenopathy. Cervical spinal fusion hardware is again noted. No pneumothorax. The central airways are patent. Chronic elevation the right hemidiaphragm with right basilar subsegmental atelectasis. This remains unchanged. No new focal lung consolidations to suggest pneumonia. Stable nodular densities within the central aspect of the right lower lobe abutting the bronchi. The largest nodule measures 8 mm. These likely represent prominent bronchial lymph node. Small amount of mucoid material within the right mainstem bronchus. IMPRESSION: 1. No evidence for pulmonary embolus. 2. Stable chronic elevation of right hemidiaphragm with right basilar subsegmental atelectasis. No new focal lung consolidations. 3. Small amount of mucoid material within the right mainstem bronchus. 4. Small nodular densities within the central aspect of the right lower lobe abutting the bronchi which remain stable. These likely represent prominent bronchial lymph nodes. Electronically signed by: Jeremy Burkett M.D. 12/20/2016 12:33 PM Dictated Date/Time: 12/20/2016 12:25 PM The status of this report is Signed. Draft = Not yet reviewed or approved by Radiologist. Signed = Reviewed and approved by Radiologist. <AttendingPhy></AttendingPhy> <FamilyPhy>Urbano Bethea PA-C</FamilyPhy> < PrimaryPhy>Urbano Bethea PA-C</PrimaryPhy> <UnitNumber>[id number]</UnitNumber > <VisitNumber>[id number]</VisitNumber> <PatientName>ROSELINE AMEZQUITA JR</ PatientName> <DateOfBirth>1945</DateOfBirth> <Location>C.[facility]C</Location> < ServiceDate>12/20/16</ServiceDate> <MNE>ESINDI</MNE> <OrderingPhy>Richard Parker M.D.</OrderingPhy> <OrderingPhyMNE>f rep ord dr novak</OrderingPhyMNE> < DictatingPhyMNE>f rep dict dr nvoak</DictatingPhyMNE> <CCListMNE>f rep ct mne</ CCListMNE> <AdmittingPhyMNE>f pt admit dr novak</AdmittingPhyMNE> <AttendingPhyMNE >f pt attend dr novak</AttendingPhyMNE> <ConsultingPhyMNE>f pt consult dr novak</ConsultingPhyMNE> <FamilyPhyMNE>f pt fam dr novak</FamilyPhyMNE> <OtherPhyMNE>f pt other dr novak</OtherPhyMNE> < PrimaryPhyMNE>f pt prim care dr novak</PrimaryPhyMNE> <ReferringPhyMNE>f pt referring dr novak</ReferringPhyMNE> EKG Normal sinus rhythm [address] depression noted in the lateral leads Q waves in the inferior leads No significant change compared to prior Impression Assessment and Plan 71-year-old male presents to the ER with multiple complaints: Lightheadedness, chest pain, constipation. CTA of the chest was performed and negative for PE Chest pain with multiple cardiac risk factors-tobacco abuse, family history -observe in telemetry -follow cardiac enzymes every 8 hr x 2 -daily EKG -EKG with worsening pain -continue ASA -Lipid profile -stress echo (dobutamine) -hold off on nitro for lightheadedness -check orthostatics -consider checking inflammatory markers if he spikes a fever/WBC count, etc... Constipation -Senokot twice daily -MiraLAX scheduled daily -Dulcolax suppository first dose now COPD -Advair 500/50 BID -duonebs q 4 hr prn Status post right TKA -PT/OT -ortho consult to check knee (moderate amount of swelling) CODE STATUS -LEVEL I FULL CODE Level of Care Telemetry Resuscitation Status FULL RESUSCITATION VTE Prophylaxis VTE Risk Assessment Done? Y/N: Yes Risk Level: Moderate Given or contraindicated: T.E.D. Stockings, SCD's
[2016-12-20] MEDS ORDERED: IV FLUIDS COMPLETED PRN (15:00)
[2016-12-20 15:38] VITALS: BP_SYST 129; BP_SYST 130; BP_DIAS 69; BP_DIAS 71
[2016-12-20 15:40] VITALS: BP 124/65; PULSE 59; TEMP 36.5; O2SAT 98; Ht 167.6 cm; Wt 78.3 kg
[2016-12-20] MEDS ORDERED: BISACODYL 10 MG SUPP PR ONE (16:00)
[2016-12-20] MEDS: SODIUM CHLORIDE 0.9% 1000ML 1,000 ML IV SCH (16:31)
[2016-12-20 20:40] LABS: CKMB/CK RATIO 2.1 (0-3.0)
[2016-12-20] MEDS ORDERED: PRAVASTATIN SOD 10 MG TAB PO SCH (21:00)
[2016-12-20] MEDS: ASPIRIN 81 MG ECTAB PO SCH (21:08)
[2016-12-20] MEDS: FLUTICASONE/SALMETEROL (ADVAIR) 500/50 INH 14 PUFF INH SCH (21:08)
[2016-12-20] MEDS: DOCUSATE SODIUM/SENNA 50/8.6MG TAB PO SCH (21:10)
[2016-12-21 00:09] VITALS: BP 126/81; PULSE 79; TEMP 36.5; O2SAT 93
[2016-12-21] MEDS: KETOROLAC TROMETHAMINE 15 MG/ML VIAL IV PRN ×2 (01:16→11:12)
[2016-12-21] MEDS: SODIUM CHLORIDE 0.9% 1000ML 1,000 ML IV SCH (02:00)
[2016-12-21 03:53] LABS: BASO % 0.3 %; BASO ABS # 0.02 K/uL (0-0.2); COMPLETE YES; EOS % 2.3 %; IG% 0.2 %; LYMPH % 30.3 %; LYMPH ABS # 1.82 K/uL (1.2-3.4); MEAN CELL VOLUME 85.1 fL (80-100); MEAN CORPUSCULAR HEMOGLOBIN 27.7 pg (25-34); MEAN CORPUSCULAR HGB CONC 32.5 g/dl (32-36); MONO % 9.8 %; NEUT % 57.1 %; PLATELET COUNT 199 K/uL (130-400); RED BLOOD COUNT 3.29 M/uL (4.7-6.1)
[2016-12-21 04:14] VITALS: BP 119/65; PULSE 67; TEMP 36.9; O2SAT 95
[2016-12-21 04:20] LABS: BLOOD UREA NITROGEN 9 mg/dl (7-18); BUN/CREATININE RATIO 13.4 (10-20); CALCIUM 7.9 mg/dl (8.5-10.1); CARBON DIOXIDE 29 mmol/L (21-32); CHLORIDE 112 mmol/L (98-107); CREATININE 0.65 mg/dl (0.60-1.40); GLUCOSE 88 mg/dl (70-99); MAGNESIUM 2.2 mg/dl (1.8-2.4); SODIUM 144 mmol/L (136-145)
[2016-12-21 04:23] LABS: CKMB/CK RATIO 1.7 (0-3.0)
[2016-12-21] MEDS ORDERED: ACETAMINOPHEN IV 650 MG in EMPTY BAG 0 ML IV PRN (04:45)
[2016-12-21] MEDS ORDERED: NURSING VERBAL MED ORDER ONE (04:45)
[2016-12-21] MEDS: FLUTICASONE/SALMETEROL (ADVAIR) 500/50 INH 14 PUFF INH SCH (07:57)
[2016-12-21] MEDS: DOCUSATE SODIUM/SENNA 50/8.6MG TAB PO SCH (07:57)
[2016-12-21] MEDS: ASPIRIN 81 MG ECTAB PO SCH (07:57)
[2016-12-21 08:20] VITALS: BP 122/63; PULSE 79; TEMP 36.6; O2SAT 99
[2016-12-21] MEDS ORDERED: POLYETHYLENE (MIRALAX) 17 GM PACK PO SCH ×2 (09:00)
[2016-12-21] MEDS ORDERED: METOPROLOL TARTRATE 1 MG/ML VIAL ONE (10:05)
[2016-12-21] MEDS ORDERED: DOBUTamine HCL 12.5 MG/ML 20 ML VIAL ONE (10:05)
[2016-12-21] MEDS ORDERED: ATROPINE SULFATE 0.1 MG/ML 5ML SYR ONE (10:06)
[2016-12-21 12:00] VITALS: BP_SYST 125; BP_SYST 126; BP_SYST 144; BP_DIAS 70; BP_DIAS 72; PULSE 85; TEMP 36.5; O2SAT 95
--- NOTE | 2016-12-21 12:07 | Discharge Summary ---
Discharge Summary Date of Service December 21, 2016. (Augusta Lentz, TYRESE) Discharge Summary Admission Date: December 20, 2016 at 14:21 Discharge Date: December 21, 2016 Discharge Disposition: Home Principal Diagnosis: Chest discomfort Problems/Secondary Diagnoses: Chest pain with multiple cardiac risk factors-tobacco abuse, family history Constipation COPD Status post right TKA on 12/16 Immunizations: Have You Had Influenza Vaccine: Unknown Influenza Vaccine Date: Jun 09, 2010 History of Tetanus Vaccine?: Unknown History of Pneumococcal: Unknown Pneumococcal Date: Jun 09, 2010 History of Hepatitis B Vaccine: Unknown Procedures: CHEST ONE VIEW PORTABLE HISTORY: Atypical CHEST PAIN COMPARISON: Chest 08/19/2016. FINDINGS: Chronic elevation of the right hemidiaphragm with right basilar subsegmental atelectasis. This remains unchanged. The left lung is clear. No pleural effusions. No pneumothorax. The heart is normal in size. Cervical spinal fusion hardware is again noted. IMPRESSION: No significant change compared to the prior study. No acute process. Electronically signed by: Jeremy Burkett M.D. 12/20/2016 11:20 AM Dictated Date/Time: 12/20/2016 11:19 AM The status of this report is Signed. Draft = Not yet reviewed or approved by Radiologist. Signed = Reviewed and approved by Radiologist. CHEST CTA for PULMONARY ARTERIES CT DOSE: 352.43 mGy.cm HISTORY: Short of breath. Recent surgery. Sternal pain. TECHNIQUE: Multiaxial CT images of the chest were performed following the intravenous administration of contrast to evaluate the pulmonary arteries. Maximal intensity projection images were also obtained. COMPARISON STUDY: Chest CTA 08/25/2016. FINDINGS: No evidence for an aortic dissection. No filling defects within the pulmonary arteries to suggest pulmonary embolus. The heart is normal in size. No pleural or pericardial effusions. Stable hypodense lesions within the liver which likely represent cysts. The spleen and visualized adrenal glands are unremarkable. No fractures within the visualized osseous structures. No mediastinal or hilar lymphadenopathy. Cervical spinal fusion hardware is again noted. No pneumothorax. The central airways are patent. Chronic elevation the right hemidiaphragm with right basilar subsegmental atelectasis. This remains unchanged. No new focal lung consolidations to suggest pneumonia. Stable nodular densities within the central aspect of the right lower lobe abutting the bronchi. The largest nodule measures 8 mm. These likely represent prominent bronchial lymph node. Small amount of mucoid material within the right mainstem bronchus. IMPRESSION: 1. No evidence for pulmonary embolus. 2. Stable chronic elevation of right hemidiaphragm with right basilar subsegmental atelectasis. No new focal lung consolidations. 3. Small amount of mucoid material within the right mainstem bronchus. 4. Small nodular densities within the central aspect of the right lower lobe abutting the bronchi which remain stable. These likely represent prominent bronchial lymph nodes. Electronically signed by: Jeremy Burkett M.D. 12/20/2016 12:33 PM Dictated Date/Time: 12/20/2016 12:25 PM The status of this report is Signed. Draft = Not yet reviewed or approved by Radiologist. Signed = Reviewed and approved by Radiologist. (Augusta Lentz, TYRESE) Procedures: Interpretation Summary * Name: ROSELINE AMEZQUITA JR Study Date: 12/21/2016 09:16 AM BP: 134/64 mmHg * Patient Location: [facility]\\S\\2 HR: 61 * : 1945 (M/d/yyyy) Gender: Male Height: 65 in * Age: 71 yrs Ethnicity: CA Weight: 154 lb * Ordering Physician: Shaila Nair * Performed By: Tawana Toure * * Reason For Study: CHEST PAIN * BSA: 1.8 m2 * -- Conclusions -- * Negative dobutamine stress echocardiogram for myocardial ischemia at 95% maximum predicted heart rate. * No dobutamine induced chest pain. * No ECG changes. * Baseline echocardiogram notes normal left ventricular systolic function. Procedure Details * DOBUTAMINE ECHO, CPT#93001 * ECHO DOPPLER, CPT #[id number] * ECHO COLOR FLOW, CPT #39936 * The study was technically difficult with many images being suboptimal in quality. * A contrast injection of Definity was performed to improve assessment of LV function. * Contrast was injected into an intravenous site in the left arm. * One vial of Definity ultrasound contrast was diluted in normal saline to a total volume of 10 ml. A total of '8' ml of solution was administered during imaging. * Lot # [id number] of Definity utilized for procedure. * Expiration date 01/09. * The attending nurse who injected the contrast agent was BONNIE LOPEZ RN. Left Ventricle * The left ventricle is normal in size. * There is borderline concentric left ventricular hypertrophy. * Ejection Fraction = 55-60%. * Left ventricular systolic function is normal. * Resting wall motion: Normal. Stress wall motion: Appropriate increase in Left ventricular systolic function and decrease in cavity size. No stress induced segmental wall motion abnormalities. Right Ventricle * The right ventricular cavity size is normal (basal dimension <4.2 cm in right ventricular apical 4-chamber view). * The right ventricular systolic function is reduced as assessed by tricuspid annular plane systolic excursion (TAPSE) (TAPSE <1.6 cm). Atria * The left atrial size is normal. * Right atrial size is normal. * There is no evidence of atrial septal defect, but resolution does not allow assessment for a patent foramen ovale. Mitral Valve * The mitral valve anatomy is normal. * There is no mitral valve stenosis. * Significant mitral regurgitation is absent. Tricuspid Valve * The tricuspid valve is not well visualized, but is grossly normal. * There is no tricuspid stenosis. * There is trace tricuspid regurgitation. Aortic Valve * The aortic valve is trileaflet. * The aortic valve opens well. * Aortic valve sclerosis mild, without significant aortic valvular stenosis. * Trace aortic regurgitation. Pulmonic Valve * The pulmonary valve is not well seen, but the Doppler examination is normal without significant regurgitation or stenosis. Great Vessels * The aortic root and proximal ascending aorta are normal sized. * The pulmonary is not well visualized. Pericardium * There is no pericardial effusion. Stress Parameters * Normal baseline electrocardiogram. * Stress ECG: No ST changes. No arrhythmias. * The stress portion of this study was personally supervised by the undersigned interpreting physician. * Rest heart rate was '61' BPM. * Rest blood pressure was '134/64' * Maximum heart rate achieved was 142 bpm. * Maximum heart rate was 95 % of maximum age-predicted heart rate. * Maximum blood pressure was '158/88' * Total exercise time was '12:00' * Maximum Dobutamine infusion rate was '10' mcg/kg/min. * A total of 0.25 mg of intravenous Atropine was used to supplement Dobutamine for heart rate response. * Dobutamine infusion was terminated due to achieving target heart rate * A total of 0.5 mg of IV Metoprolol was administered to reverse Dobutamine- induced tachycardia. * The patient did not exhibit any symptoms during drug infusion. * Normal blood pressure response to exercise. * Target heart rate achieved. (Gold Bach D.O.) Medication Reconciliation Continued Medications: Acetaminophen (Tylenol Extra Strength) 500 Mg Tab 1000 MG PO Q8H for 21 Days, #126 TAB Albuterol (Ventolin Hfa) 60 Puffs/5400 Mcg Aers 2 PUFFS INH Q4 PRN for SOB/Wheezing, #1 INHALER 0 Refills Aspirin (Aspirin EC Low Dose) 81 Mg Ectab 81 MG PO BID for 30 Days, #60 Celecoxib (CeleBREX) 200 Mg Cap 200 MG PO BID, CAP Fluticasone Prop/Salmeterol (Advair Diskus 500/50 60 Dose) 1 Ea Aerp 1 PUFF INH BID, INHALER Oxycodone HCl (Oxycodone HCl) 5 Mg Tab 5-10 MG PO Q4H PRN for Moderate - severe pain, #60 TAB Pravastatin (Pravachol ) 20 Mg Tab 10 MG PO QPM, TAB Senna/Docusate Sod (Senokot S) 1 Tab Tab 1 TAB PO PRN, TAB Referrals At Discharge Follow up Referrals: Physician Referral - Within 1 Week with Urbano Bethea PA-C Discharge Exam Review of Systems: Constitutional: No chills, No fatigue, No fever, No sweats, No weakness Respiratory: No cough, No hemoptysis, No shortness of breath Cardiovascular: No chest pain, No edema, No palpitations Abdomen: No constipation, No diarrhea, No nausea, No pain, No vomiting Musculoskeletal: + swelling (right knee), No calf pain, No joint pain, No muscle pain Genitourinary - Male: No dysuria, No hematuria Neurologic: No numbness/tingling, No weakness Psychiatric: No anxiety, No depression symptoms Hematologic / Lymphatic: No abnormal bleeding/bruising Integumentary: No itch, No new/changing skin lesions, No rash Physical Exam: General Appearance: no apparent distress Eyes: normal inspection, PERRL ENT: hearing grossly normal Neck: supple Respiratory/Chest: lungs clear, no respiratory distress, no accessory muscle use Cardiovascular: regular rate, rhythm Abdomen / GI: normal bowel sounds, non tender, soft Extremities: no calf tenderness, no pedal edema, + swelling (right knee swelling; no erythema or warmth ) Neurologic/Psychiatric: alert, normal mood/affect, oriented x 3 Skin: normal color, warm/dry, no rash (Augusta Lentz ., PETEYC) Hospital Course HPI on admission: Patient is a pleasant 71-year-old male presents emergency department with complaints of "just not feeling well." The patient notes that he had some chest pain last night. He is unable to describe for me. It lasted for a few minutes. He also has felt short of breath over the last 2 days. He denies any productive cough. He denies any fever or chills. He is also complaining of feeling lightheaded when he stands up. The patient has his right knee replaced on 12/16. He has been doing fairly well with the pain. He only is taking oxycodone twice daily. He was also instructed to start Celebrex 200 mg daily which he started yesterday. He denies any increased pain in the knee. He does note he has not had a bowel movement in approximately one week. He has been taking MiraLAX and senna at home with no relief. He denies any abdominal pain or nausea. He has had a poor appetite over the last several days. Chest pain with multiple cardiac risk factors-tobacco abuse, family history: - Observe in telemetry- no acute events, NSR w/ rates 60-70s - Trend cardiac enzymes- negative - IV Toradol PRN pain - EKG QAM and PRN w/ CP - Continue ASA and Pravastatin 10 mg QPM - Stress echo (dobutamine) Constipation- small BM x1 on 12/21: - Senokot twice daily - MiraLAX scheduled daily - Dulcolax suppository PRN COPD: - Advair 500/50 BID - Duonebs q 4 hr prn Status post right TKA: - PT/OT - ortho consulted to check knee (moderate amount of swelling) Code Status: LEVEL I, FULL Dispo: Discharge to home Total Time Spent: Greater than 30 minutes This includes examination of the patient, discharge planning, medication reconciliation, and communication with other providers. (Augusta Lentz ., PA-C) i personally examined pt and verified all joe points w Kiera Lentz PAC feeling better wants to go home vitals noted nad breathing unlabored, no pallor troponins negative, stress echo negative as above chest discomfort - nonspecific but reassuring stable for home (Gold Bach D.O.) Discharge Instructions Please refer to the electronic Patient Visit Report (Discharge Instructions) for additional information. (Augusta Lentz, PADonya) Follow-Up Please follow-up with your PCP within 5-7 days Please follow-up/keep all of your subspecialty appointments (Augusta Lentz, PA-C) Additional Copies To Urbano Bethea PA-C
--- NOTE | 2016-12-21 12:15 | Discharge Instructions ---
Discharge Instructions Date of Service December 21, 2016. Admission Reason for Admission: Chest Pain Discharge Discharge Diagnosis / Problem: Chest discomfort Discharge Goals Goal(s): Decrease discomfort, Improve function, Learn about illness, Diagnostic testing, Prevent Disease Progression Activity Recommendations Activity Limitations: resume your previous activity . Instructions / Follow-Up Instructions / Follow-Up Resume all regular home medications as prescribed You may take MiraLAX (as instructed on bottle) to help with constipation It is important you call to reschedule physical therapy for your knee SKIP Please follow-up with your PCP within 5-7 days Please follow-up/keep all of your subspecialty appointments Home Care: * Take your medications exactly as directed. Don't skip doses. * If you are having chest pain, call 911 for an ambulance. Do NOT drive yourself to the hospital. * Ask your family members to learn CPR. * Learn to take your own blood pressure and pulse. Keep a record of your results. Ask your doctor when you should seek emergency medical attention. He or she will tell you which blood pressure reading is dangerous. Lifestyle Changes: * Maintain a healthy weight. Get help to lose any extra pounds. * Cut back on salt. * Limit canned, dried, packaged, and fast foods. * Don't add salt to your food. * Season foods with herbs instead of salt when you cook. * Break the smoking habit. Enroll in a stop-smoking program to improve your chances of success. * Limit fatty foods. * Check your lipid levels regularly. (Your doctor can show you how to do this.) * Build up your activity according to your doctor's recommendation. * Ask your doctor when it's okay to resume sexual activity. * Tell your doctor about any erectile dysfunction (ED) medication you are taking. Some ED medications are not safe if you take certain heart medications. * Try to manage stress. Follow Up: It is important for you to keep your follow up appointments with your medical provider. Current Hospital Diet Patient's current hospital diet: AHA Diet (Heart Healthy) Discharge Diet Recommended Diet: AHA Diet (Heart Healthy) Procedures Procedures Performed: Dobutamine stress ECHO Pending Studies Studies pending at discharge: no Laboratory Results Last 24 Hours Test 12/20/16 20:12 12/21/16 03:40 Total Creatine Kinase 48 U/L 48 U/L Creatine Kinase MB 1.0 ng/ml 0.8 ng/ml Creatine Kinase MB Ratio 2.1 1.7 Troponin I < 0.015 ng/ml < 0.015 ng/ml White Blood Count 6.00 K/uL Red Blood Count 3.29 M/uL Hemoglobin 9.1 g/dL Hematocrit 28.0 % Mean Corpuscular Volume 85.1 fL Mean Corpuscular Hemoglobin 27.7 pg Mean Corpuscular Hemoglobin Concent 32.5 g/dl Platelet Count 199 K/uL Mean Platelet Volume 9.0 fL Neutrophils (%) (Auto) 57.1 % Lymphocytes (%) (Auto) 30.3 % Monocytes (%) (Auto) 9.8 % Eosinophils (%) (Auto) 2.3 % Basophils (%) (Auto) 0.3 % Neutrophils # (Auto) 3.42 K/uL Lymphocytes # (Auto) 1.82 K/uL Monocytes # (Auto) 0.59 K/uL Eosinophils # (Auto) 0.14 K/uL Basophils # (Auto) 0.02 K/uL RDW Standard Deviation 53.8 fL RDW Coefficient of Variation 17.1 % Immature Granulocyte % (Auto) 0.2 % Immature Granulocyte # (Auto) 0.01 K/uL Sodium Level 144 mmol/L Potassium Level 4.0 mmol/L Chloride Level 112 mmol/L Carbon Dioxide Level 29 mmol/L Anion Gap 3.0 mmol/L Blood Urea Nitrogen 9 mg/dl Creatinine 0.65 mg/dl Est Creatinine Clear Calc Drug Dose 92.6 ml/min Estimated GFR () 112.7 Estimated GFR (Non- 97.2 BUN/Creatinine Ratio 13.4 Random Glucose 88 mg/dl Calcium Level 7.9 mg/dl Magnesium Level 2.2 mg/dl Hemoglobin A1c Test 11/12/16 14:04 Range/Units Estimated Average Glucose 97 mg/dl Hemoglobin A1c 5.0 4.5-5.6 % Medical Emergencies . Who to Call and When: Medical Emergencies: If at any time you feel your situation is an emergency, please call 911 immediately. Call 911 immediately or go to your nearest Emergency Room if you experience any of the following: Warning Signs and Symptoms of a Heart Attack * Chest pain that is not relieved by medication * Shortness of breath . Non-Emergent Contact Non-Emergency issues call your: Primary Care Provider . . "Provider Documentation" section prepared by Augusta Lentz. . AMI Core Measures Reason no ASA as I/P: Treatment provided - N/A Reason no ASA at D/C: Treatment provided - N/A Reason no statin as I/P: Treatment provided - N/A Reason no statin at D/C: Treatment provided - N/A VTE Core Measure Inpt VTE Proph given/why not?: Jayme Munoz, SCD's
--- NOTE | 2016-12-21 13:50 | Hospitalist Progress Note ---
Hospitalist Progress Note Date of Service December 21, 2016. Subjective Pt evaluation today including: conversation w/ patient, conversation w/ family (owen ), physical exam, chart review, lab review, review of studies, review of inpatient medication list Voiding: no voiding problems, no incontinence Patient states he is feeling well. No episodes of CP overnight. Patient is anxious for discharge. Had a quick episode of central chest pain prior to arrival yesterday. Did not radiate. Denies cardiac history. Patient denies any fever, chills, sweats, lightheadedness, dizziness, vision changes, CP, palpitations, edema, SOB, wheezing, cough, abdominal pain, nausea, vomiting, diarrhea, urinary symptoms, melena, numbness/tingling, weakness, muscle/joint pain, anxiety/depression, active bleeding, or new skin discoloration/changes. Medications Current Inpatient Medications Medications (Trade) Dose Ordered Sig/Crystal Route Start Time Stop Time Status Last Admin Dose Admin Ioversol (Optiray 320) 125 ml UD PRN IV 12/20/16 12:15 12/24/16 12:14 Bisacodyl (Dulcolax Supp) 10 mg DAILY PRN OH 12/20/16 14:15 01/19/17 14:14 Acetaminophen (Tylenol Tab) 650 mg Q4H PRN PO 12/20/16 14:15 01/19/17 14:14 12/20/16 22:21 650 MG Al Hydrox/Mg Hydrox/Simethicone (Maalox Max Susp) 15 ml Q4H PRN PO 12/20/16 14:15 01/19/17 14:14 Magnesium Hydroxide (Milk Of Magnesia Susp) 30 ml Q12H PRN PO 12/20/16 14:15 01/19/17 14:14 Ondansetron HCl (Zofran Inj) 4 mg Q6H PRN IV 12/20/16 14:15 01/19/17 14:14 Albuterol/ Ipratropium (Duoneb) 3 ml Q4 PRN INH 12/20/16 14:15 01/19/17 14:14 Aspirin (Ecotrin Tab) 81 mg BID PO 12/20/16 21:00 01/19/17 20:59 12/21/16 07:57 81 MG Salmeterol Xinafoate/ Fluticasone (Advair Diskus 500/50 Inh) 1 puff BID INH 12/20/16 21:00 01/19/17 20:59 12/21/16 07:57 1 PUFF Pravastatin Sodium (Pravachol Tab) 10 mg QPM PO 12/20/16 21:00 01/19/17 20:59 12/20/16 21:09 10 MG Senna/Docusate Sodium (Senokot S Tab) 1 tab BID PO 12/20/16 21:00 01/19/17 20:59 12/21/16 07:57 1 TAB Polyethylene (Miralax Powder Packet) 17 gm DAILY PO 12/21/16 09:00 01/20/17 08:59 12/21/16 07:57 17 GM Miscellaneous (Iv Fluids Completed) 1 ea PRN PRN N/A 12/20/16 15:00 12/20/17 14:59 Ketorolac Tromethamine 15 mg 15 mg Q6H PRN IV 12/21/16 01:15 12/26/16 01:14 12/21/16 11:12 15 MG Acetaminophen/ Empty Bag (Ofirmev Iv/ Empty Iv Bag 100ml) 65 ml @ 260 mls/hr Q6H PRN IV 12/21/16 04:45 01/20/17 04:44 12/21/16 04:49 260 MLS/HR Objective Vital Signs Date Time Temp Pulse Resp B/P Pulse Ox O2 Delivery O2 Flow Rate FiO2 12/21/16 12:00 36.5 85 18 144/70 95 Room Air 125/70 126/72 12/21/16 12:00 Room Air 12/21/16 08:20 36.6 79 16 122/63 99 12/21/16 08:00 Room Air 12/21/16 04:14 36.9 67 17 119/65 95 Room Air 12/21/16 04:00 Room Air 12/21/16 00:09 36.5 79 18 126/81 93 Room Air 12/21/16 00:00 Room Air 12/20/16 20:00 Room Air 12/20/16 15:40 36.5 59 20 124/65 98 Room Air 12/20/16 15:38 129/71 130/69 12/20/16 15:09 59 18 117/70 95 12/20/16 14:30 62 18 126/61 Physical Exam General Appearance: no apparent distress Eyes: normal inspection, PERRL ENT: hearing grossly normal Neck: supple Respiratory/Chest: lungs clear, no respiratory distress, no accessory muscle use Cardiovascular: regular rate, rhythm Abdomen: normal bowel sounds, non tender, soft Extremities: no pedal edema, no calf tenderness Neurologic/Psychiatric: alert, normal mood/affect, oriented x 3 Skin: normal color, warm/dry, no rash Laboratory Results Last 24 Hours Test 12/20/16 20:12 12/21/16 03:40 Total Creatine Kinase 48 U/L 48 U/L Creatine Kinase MB 1.0 ng/ml 0.8 ng/ml Creatine Kinase MB Ratio 2.1 1.7 Troponin I < 0.015 ng/ml < 0.015 ng/ml White Blood Count 6.00 K/uL Red Blood Count 3.29 M/uL Hemoglobin 9.1 g/dL Hematocrit 28.0 % Mean Corpuscular Volume 85.1 fL Mean Corpuscular Hemoglobin 27.7 pg Mean Corpuscular Hemoglobin Concent 32.5 g/dl Platelet Count 199 K/uL Mean Platelet Volume 9.0 fL Neutrophils (%) (Auto) 57.1 % Lymphocytes (%) (Auto) 30.3 % Monocytes (%) (Auto) 9.8 % Eosinophils (%) (Auto) 2.3 % Basophils (%) (Auto) 0.3 % Neutrophils # (Auto) 3.42 K/uL Lymphocytes # (Auto) 1.82 K/uL Monocytes # (Auto) 0.59 K/uL Eosinophils # (Auto) 0.14 K/uL Basophils # (Auto) 0.02 K/uL RDW Standard Deviation 53.8 fL RDW Coefficient of Variation 17.1 % Immature Granulocyte % (Auto) 0.2 % Immature Granulocyte # (Auto) 0.01 K/uL Sodium Level 144 mmol/L Potassium Level 4.0 mmol/L Chloride Level 112 mmol/L Carbon Dioxide Level 29 mmol/L Anion Gap 3.0 mmol/L Blood Urea Nitrogen 9 mg/dl Creatinine 0.65 mg/dl Est Creatinine Clear Calc Drug Dose 92.6 ml/min Estimated GFR () 112.7 Estimated GFR (Non- 97.2 BUN/Creatinine Ratio 13.4 Random Glucose 88 mg/dl Calcium Level 7.9 mg/dl Magnesium Level 2.2 mg/dl Assessment and Plan 71-year-old male presents to the ER with multiple complaints: Lightheadedness, chest pain, constipation. CTA of the chest was performed and negative for PE Chest pain with multiple cardiac risk factors-tobacco abuse, family history: - Observe in telemetry- no acute events, NSR w/ rates 60-70s - Trend cardiac enzymes- negative - IV Toradol PRN pain - EKG QAM and PRN w/ CP - Continue ASA and Pravastatin 10 mg QPM - Stress echo (dobutamine) Constipation- small BM x1 on 12/21: - Senokot twice daily - MiraLAX scheduled daily - Dulcolax suppository PRN COPD: - Advair 500/50 BID - DuoNebs q 4 hr PRN Status post right TKA: - PT/OT - Ortho consulted to check knee (moderate amount of swelling) Code Status: LEVEL I, FULL Dispo: Hopeful discharge to home tomorrow
--- NOTE | 2016-12-21 14:02 | Consultant Recommendations ---
Rehab Care Assistant Recommendations Date of Service December 21, 2016. Rehab Care Assistant Recommendations PLEASE RESUME YOUR TKA INSTRUCTIONS LISTED BELOW. YOU WILL BE GIVEN A PT PRESCRIPTION TO RESTART YOUR THERAPY. FOLLOW UP WITH DR ALDANA NEXT TUESDAY. REMOVE SILVERLON DRESSING TOMORROW (12/22/16) COVER WOUND WITH GAUZE IF YOU HAVE DRAINAGE. YOU MAY GET THE WOUND WET IN THESHOWER. NO TUB BATHS. DO NOT SOAK THE WOUND. IF YOU HAVE WORSENING PAIN AND SWELLING WITH THE RIGHT KNEE PRIOR TO THAT, PLEASE CALL THE OFFICE TO BE SEEN SOONER. [phone] ACTIVITY RECOMMENDATIONS: SELF CARE INSTRUCTIONS AFTER TOTAL KNEE REPLACEMENT A. You may need to continue a physical therapy program after discharge from the hospital. There are several options available to you. Your doctor will assist you in selecting the best one for you. 1. An out-patient facility 2 to 3 times a week for therapy or home therapy. 2. Continue working on all exercises taught to you in the hospital. Your goals should be to increase bending of your knee to 90 degrees and beyond and to fully straighten your knee. B. You may progress at your own pace from walking with a walker or crutches to a cane; then to no assistive devices. C. Make walking a part of your daily routine. Be up as much as comfortable with rest periods throughout the day. Rest with leg elevation is very important. Use the ice wrap frequently for the first 3-4 weeks. D. There are no restrictions on activities. You may ride in a car, shop, participate in hydro plant technician and all social activities. E. Wear the long elastic stockings (REMEDIOS hose) 20 hours a day for 2 weeks after surgery. They can be removed several times a day for laundering and for a bath. F. You may shower, no tub baths until cleared by your doctor. SPECIAL CARE INSTRUCTIONS: VERY IMPORTANT TO READ AND REVIEW A. There are a few signs you need to watch for after you are home. Call [facility] if you notice any of the followin. Increased severe knee pain. Some pain is expected especially when you exercise. 2. Increased swelling in your leg or knee; pain or swelling of the calf muscle in either lower leg. 3. Any fluid drainage from the incision. 4. Shortness of breath or chest pain. B. Please call [facility] at if you have any concerns or questions about your operation or recovery. The doctor or his nurse will return your call promptly. C. You must take antibiotics before dental work, bladder, bowel or other surgery. Your doctor will provide you with a permanent care to carry describing this precaution. IMPORTANT: * REMEMBER TO TAKE ASPIRIN, 81 MG, TWICE DAILY FOR 4 WEEKS UNLESS OTHERWISE DIRECTED. THIS IS YOUR BLOOD THINNER. * HIGH RISK PATIENTS MAY BE PRESCRIBED A STRONGER BLOOD THINNER. THIS WILL BE PROVIDED AT DISCHARGE. * CALL IF INCREASED PAIN, REDNESS, DRAINAGE OR FEVER GREATER THAT 101. * WEAR REMEDIOS HOSE 20 HOURS PER DAY FOR 2 WEEKS. * Silverlon- This is a large adhesive bandage that contains silver ions. This helps your incision heal by fighting off bacteria and protecting it from the outside environment. You are permitted to shower with this dressing. This will remain on your incision for 7 days and then should be removed. Some visible blood or drainage through the dressing window is normal. If there is significant drainage or leaking noted before the 7 days notify your doctor's office immediately. Once removed, keep incision clean and dry. If there is any drainage or redness noted, please call your surgeon. . FOLLOW UP VISIT: If appointment is not already scheduled: Please call [facility] to make a follow-up appointment for 2 weeks after your surgery at .
[2016-12-21 16:04] VITALS: BP 124/60; PULSE 84; TEMP 36.8; O2SAT 96
--- NOTE | 2016-12-21 16:05 | DOBUTAMINE ECHO ---
*NOTICE TO RECEIVING REPUBLICAN AGENCY This information is strictly Confidential and protected under [place] law. [place] law prohibits you from making any further disclosure of this information unless further disclosure is expressly permitted by the written consent of the person to whom it pertains or is authorized by law. A general authorization for the release of medical or other information is not sufficient for this purpose. Hospital accepts no responsibility if the information is made available to any other person, INCLUDING THE PATIENT. Interpretation Summary * Name: ROSELINE AMEZQUITA JR Study Date: 12/21/2016 09:16 AM BP: 134/64 mmHg * Patient Location: .2T\S\S239\S\2 HR: 61 * : 1945 (M/d/y) Gender: Male Height: 65 in * Age: 71 yrs Ethnicity: CA Weight: 154 lb * Ordering Physician: Shaila Nair * Performed By: Tawana Toure * * Reason For Study: CHEST PAIN * BSA: 1.8 m2 * -- Conclusions -- * Negative dobutamine stress echocardiogram for myocardial ischemia at 95% maximum predicted heart rate. * No dobutamine induced chest pain. * No ECG changes. * Baseline echocardiogram notes normal left ventricular systolic function. Procedure Details * DOBUTAMINE ECHO, CPT#[id number] * ECHO DOPPLER, CPT #[id number] * ECHO COLOR FLOW, CPT #[id number] * The study was technically difficult with many images being suboptimal in quality. * A contrast injection of Definity was performed to improve assessment of LV function. * Contrast was injected into an intravenous site in the left arm. * One vial of Definity ultrasound contrast was diluted in normal saline to a total volume of 10 ml. A total of '8' ml of solution was administered during imaging. * Lot # [id number] of Definity utilized for procedure. * Expiration date 01/09. * The attending nurse who injected the contrast agent was BONNIE LOPEZ RN. Left Ventricle * The left ventricle is normal in size. * There is borderline concentric left ventricular hypertrophy. * Ejection Fraction = 55-60%. * Left ventricular systolic function is normal. * Resting wall motion: Normal. Stress wall motion: Appropriate increase in Left ventricular systolic function and decrease in cavity size. No stress induced segmental wall motion abnormalities. Right Ventricle * The right ventricular cavity size is normal (basal dimension <4.2 cm in right ventricular apical 4-chamber view). * The right ventricular systolic function is reduced as assessed by tricuspid annular plane systolic excursion (TAPSE) (TAPSE <1.6 cm). Atria * The left atrial size is normal. * Right atrial size is normal. * There is no evidence of atrial septal defect, but resolution does not allow assessment for a patent foramen ovale. Mitral Valve * The mitral valve anatomy is normal. * There is no mitral valve stenosis. * Significant mitral regurgitation is absent. Tricuspid Valve * The tricuspid valve is not well visualized, but is grossly normal. * There is no tricuspid stenosis. * There is trace tricuspid regurgitation. Aortic Valve * The aortic valve is trileaflet. * The aortic valve opens well. * Aortic valve sclerosis mild, without significant aortic valvular stenosis. * Trace aortic regurgitation. Pulmonic Valve * The pulmonary valve is not well seen, but the Doppler examination is normal without significant regurgitation or stenosis. Great Vessels * The aortic root and proximal ascending aorta are normal sized. * The pulmonary is not well visualized. Pericardium * There is no pericardial effusion. Stress Parameters * Normal baseline electrocardiogram. * Stress ECG: No ST changes. No arrhythmias. * The stress portion of this study was personally supervised by the undersigned interpreting physician. * Rest heart rate was '61' BPM. * Rest blood pressure was '134/64' * Maximum heart rate achieved was 142 bpm. * Maximum heart rate was 95 % of maximum age-predicted heart rate. * Maximum blood pressure was '158/88' * Total exercise time was '12:00' * Maximum Dobutamine infusion rate was '10' mcg/kg/min. * A total of 0.25 mg of intravenous Atropine was used to supplement Dobutamine for heart rate response. * Dobutamine infusion was terminated due to achieving target heart rate * A total of 0.5 mg of IV Metoprolol was administered to reverse Dobutamine-induced tachycardia. * The patient did not exhibit any symptoms during drug infusion. * Normal blood pressure response to exercise. * Target heart rate achieved. MMode 2D Measurements and Calculations IVSd 1.2 cm IVSs 1.6 cm LVIDd 4.7 cm LVIDs 3.1 cm LVPWd 1.2 cm LVPWs 1.6 cm IVS/LVPW 1.1 FS 34.2 % EDV(Teich) 103.0 ml ESV(Teich) 37.9 ml EF(Teich) 63.2 % EDV(cubed) 104.6 ml ESV(cubed) 29.8 ml EF(cubed) 71.5 % % IVS thick 31.8 % % LVPW thick 33.9 % LV mass(C)d 216.0 grams LV mass(C)dI 122.0 grams/m\S\2 LV mass(C)s 186.0 grams LV mass(C)sI 105.1 grams/m\S\2 CO(Teich) 3.9 l/min CI(Teich) 2.2 l/min/m\S\2 SV(Teich) 65.0 ml SI(Teich) 36.7 ml/m\S\2 CO(cubed) 4.5 l/min CI(cubed) 2.5 l/min/m\S\2 SV(cubed) 74.8 ml SI(cubed) 42.3 ml/m\S\2 ACS 1.6 cm LA dimension 3.0 cm asc Aorta Diam 3.1 cm LVOT diam 1.9 cm LVOT area 2.7 cm\S\2 LVAd ap4 29.5 cm\S\2 LVLd ap4 7.9 cm EDV(MOD-sp4) 92.0 ml LVAs ap4 16.3 cm\S\2 LVLs ap4 6.1 cm ESV(MOD-sp4) 37.0 ml EF(MOD-sp4) 59.8 % LVAd ap2 23.5 cm\S\2 LVLd ap2 7.8 cm EDV(MOD-sp2) 63.0 ml LVAs ap2 13.4 cm\S\2 LVLs ap2 6.1 cm ESV(MOD-sp2) 25.0 ml EF(MOD-sp2) 60.3 % CO(MOD-sp4) 3.3 l/min CI(MOD-sp4) 1.9 l/min/m\S\2 SV(MOD-sp4) 55.0 ml SI(MOD-sp4) 31.1 ml/m\S\2 CO(MOD-sp2) 2.3 l/min CI(MOD-sp2) 1.3 l/min/m\S\2 SV(MOD-sp2) 38.0 ml SI(MOD-sp2) 21.5 ml/m\S\2 Doppler Measurements and Calculations MV E max ara 69.6 cm/sec MV A max ara 69.6 cm/sec MV E/A 1.0 MV dec time 0.26 sec Ao V2 max 126.4 cm/sec Ao max PG 6.4 mmHg Ao max PG (full) 2.0 mmHg GARCIA(V,A) 2.3 cm\S\2 GARCIA(V,D) 2.3 cm\S\2 LV V1 max PG 4.4 mmHg LV V1 max 104.6 cm/sec PA V2 max 74.0 cm/sec PA max PG 2.2 mmHg
[2016-12-21 16:29] VITALS: BP 124/60; PULSE 84; TEMP 36.8; O2SAT 96
--- NOTE | 2016-12-21 17:02 | CONSULTATION REPORT ---
DATE OF CONSULTATION: 12/21/2016 REASON FOR CONSULT: Recent knee surgery. HISTORY OF PRESENT ILLNESS: The patient is a 71-year-old white male known to our practice, who is status post right TKA by Dr. Guevara on 12/15/2016. The patient had a fairly uneventful stay during that time and he was discharged to home in satisfactory condition. He was doing outpatient PT. He apparently started feeling ill over the last week and states that he continued to progressively worsen over time. His family who was present with him states that at one point prior just prior to admission he was complaining of some chest pain and some shortness of breath, at that point in time they felt that he should be brought in to be seen to the Emergency Room. At that point in time he was admitted on the medicine service and we have been asked to see him for his right knee. PAST MEDICAL HISTORY: COPD, hyperlipidemia, history of tobacco use. PAST SURGICAL HISTORY: Right TKA for 12/15/[address] Guevara. The patient also had removal of hardware and lumbar decompression and fusion of L2 through L4 in July [address] Park. His original surgery for his L4-L5 and L5-S1 fusion was in 2010. FAMILY AND SOCIAL HISTORY: As per admitting history and physical. MEDICATIONS: Acetaminophen 1000 mg p.o. q. 8 hours, aspirin 81 mg p.o. b.i.d. for 30 days, Celebrex 200 mg p.o. b.i.d., Advair Diskus 500/50 one puff inhaled b.i.d., pravastatin 10 mg p.o. q.p.m., Senokot-S one tab p.o. p.r.n., his family said that they were also giving him MiraLax p.r.n., albuterol 2 puffs inhaled q. 4 hours p.r.n., and oxycodone 5-10 mg p.o. q. 4 hours p.r.n. for [id number] pain. ALLERGIES: MOXIFLOXACIN AND MORPHINE WHICH CAUSED SEVERE DROP IN BLOOD PRESSURE. REVIEW OF SYSTEMS: As per admitting history and physical, but patient denies any recent fevers, chills, unexplained weight loss or weight gain. No flu or cold-like symptoms. No increased cough or sputum production, although he did have increased shortness of breath prior to admit. PHYSICAL EXAMINATION: EXTREMITIES: On examination of patient's right knee, his Silverlon dressing is on and is due to be taken off tomorrow. There is [id number] drainage in the window of the dressing itself. His knee has ebku-ud-fidyeflz swelling which the family states that appears no different than whenever he came home. He has some warmth to the right knee; however, there is no erythema and he is currently sitting at the bedside with flexion to approximately 70-80 degrees. He has some discomfort with bending the knee, but only past what he can tolerate. He can extend the knee at this time and has good range of motion of his right ankle and toes and has no calf tenderness at this time. ASSESSMENT: Status post right total knee arthroplasty on 12/15/2016. PLAN: At this point, the knee does not look like it has any swelling that is inconsistent with recent knee surgery. He does have warmth, which is obviously normal with the recent surgery, but he has no erythema noted at this time. The patient was able to ambulate today in physical therapy which was 225 feet without difficulty. He had flexion to approximately 72 degrees. He was able to go through ambulation and flexion and extension exercises without excruciating pain. His vital signs show that he has been afebrile since his admission. His white count on admission was 7.03 and is now down to 6.00. Hemoglobin was 11.0 and is now down to 9.1. Currently, I do not see any signs of infection and I believe he needs to be continued on his physical therapy protocol while he is here and restart that once he is out of the hospital. They state that he has not had PT in approximately a week, although his physical therapy session today went rather well. He has not had a bowel movement in approximately a week which his family states that was his normal course after his back surgery and was 9 days after that before had a solid bowel movement, he had a small one last night he states and he is passing gas. At home he was taking approximately 1 or 2 tablets of the oxycodone in the morning and in the evening and only took the Tylenol during the day and nothing else. His narcotics have been held here obviously and he is continued on Toradol and acetaminophen. The suggestion of trying tramadol over his other narcotics is possible. Otherwise, orthopedically he looks stable and can be discharged to home whenever it is okay with the medicine service. Again, he needs to follow up with his physical therapy and start going regularly and will need to follow up with his appointment with Dr. Guevara that is set for next Tuesday. I discussed with him and the family that if this situation would arise that he has increased pain, swelling increases in the knee and/or has erythema and difficulty with ambulation flexion and extension exercises; then we would need to see him prior to that time. Thank you for this consult.
== END 2016-12-21 16:58 | disposition home or self-care (01) ==
LOC: ENRESERVTM → ENRESERVDT → C.EDB 10:52 → C.2T 14:21
PROVIDERS: ADMIT Hospitalist; ATTEND Hospitalist
DX: R07.89 Other chest pain (principal); K59.00 Constipation, unspecified; J44.9 Chronic obstructive pulmonary disease, unspecified; E78.5 Hyperlipidemia, unspecified; Z88.5 Allergy status to narcotic agent; Z87.891 Personal history of nicotine dependence; Z96.651 Presence of right artificial knee joint; Z79.82 Long term (current) use of aspirin; R06.02 Shortness of breath

== ENCOUNTER 2017-11-10 10:15 | Emergency (ER) | payer OTHER, MEDICARE ==
[~2017-11-10] VITALS: Ht 165.1 cm; Wt 73.5 kg
[~2017-11-10 10:15] MED LIST changes: -ASPEC81 PO; +ASPI-320 PO; +CLB/200 PO
[2017-11-10 10:19] VITALS: TEMP 36.8; Ht 165.1 cm; Wt 73.5 kg
[2017-11-10] MEDS ORDERED: METHYLPREDNISOLONE 16 MG TAB PO STA (10:44)
[2017-11-10] MEDS ORDERED: ACETAMINOPHEN 500 MG TAB PO STA (10:44)
[2017-11-10] MEDS ORDERED: FAMOTIDINE 20 MG TAB PO ONE (10:45)
[2017-11-10] MEDS ORDERED: MoRPHine SULFATE 4 MG/ML 1 ML CARP\\VIAL IV PRN (10:45)
--- NOTE | 2017-11-10 10:46 | EMERGENCY ROOM VISIT NOTE ---
History Report prepared by Bebeto: Crystal Olson Under the Supervision of: Dr. Sihn Porter M.D. First contact with patient: 10:23 Chief Complaint: BACK PAIN Stated Complaint: LOWER BACK PAIN History of Present Illness The patient is a 72 year old white male with a past medical history of back surgery, COPD, high cholesterol who presents to the ED with a cc of right sided back pain beginning a week ago. Positive pain causing difficulty ambulating. Negative urinary symptoms, weight loss, fevers, chills, groin pain. He reports his pain worsens when he lays flat. He denies any modifying factors. The patient had back surgery by Dr. [facility] a year ago. The patient saw Dr. Park a week ago who was going to schedule the patient for an outpatient MRI in a month. The patient states "Dr. Park might have thought there might a loose screw". The patient has been taking Tylenol and oxycodone with no relief. Source of History: patient Onset: a week ago Position: back Quality: other (pain) Timing: constant Modifying Factors (Worsening): other (laying flat) Associated Symptoms: + back pain, No fevers, No chills, No urinary symptoms Review of Systems See HPI for pertinent positives and negatives. A total of ten systems were reviewed and were otherwise negative. Past Medical & Surgical Medical Problems: (1) Chest pain (2) Lumbar stenosis with neurogenic claudication (3) Right knee DJD Family History Patient reports no known family medical history. Social History Smoking Status: Current Every Day Smoker Alcohol Use: occasionally Drug Use: none Marital Status: in relationship Housing Status: lives with significant other Occupation Status: employed Current/Historical Medications Scheduled Acetaminophen (Tylenol Extra Strength), 1,000 MG PO Q8H Celecoxib (CeleBREX), 200 MG PO BID Fluticasone Prop/Salmeterol (Advair Diskus 500/50 60 Dose), 1 PUFF INH BID Methylprednisolone (Medrol Dosepak), 1 PKT PO UD Pravastatin (Pravachol ), 10 MG PO QPM Senna/Docusate Sod (Senokot S), 1 TAB PO PRN Scheduled PRN Albuterol (Ventolin Hfa), 2 PUFFS INH Q4 PRN for SOB/Wheezing Oxycodone HCl (Oxycodone HCl), 5-10 MG PO Q4H PRN for Moderate - severe pain Allergies Coded Allergies: Moxifloxacin (Verified Allergy, Unknown, rash per PCP note, 11/10/17) Morphine (Verified Adverse Reaction, Intermediate, SEVERE DROP IN BP, 11/10) Physical Exam Vital Signs Date Time Temp Pulse Resp B/P (MAP) Pulse Ox O2 Delivery O2 Flow Rate FiO2 11/10/17 11:55 52 16 121/85 95 Room Air 11/10/17 11:44 58 11/10/17 10:19 36.8 64 20 146/85 96 Room Air Physical Exam GENERAL: Awake, alert, well-appearing, NAD HENT: Normocephalic, atraumatic. EYES: Normal conjunctiva. Sclera non-icteric. NECK: Supple. No nuchal rigidity. FROM. RESPIRATORY: CTAB, no rhonchi, wheezing, crackles CARDIAC: RRR, no MRG ABDOMEN: Soft, NTND, BS+ MSK: No chest wall TTP, right sided paraspinal TTP, no LE edema, positive right straight leg raise, no pain with internal or external rota of hip, no saddle anesthesia, NVI distally to b/l LE. NEURO: GCS 15, CN 2-12 intact, moves all 4s on command SKIN: No rash or jaundice noted. Medical Decision & Procedures Medications Administered Medications (Trade) Dose Ordered Sig/Crystal Route Start Time Stop Time Status Last Admin Dose Admin Acetaminophen (Tylenol Tab) 1,000 mg NOW STAT PO 11/10/17 10:44 11/10/17 10:46 DC 11/10/17 11:10 1,000 MG Methylprednisolone (Medrol Tab) 16 mg NOW STAT PO 11/10/17 10:44 11/10/17 10:46 DC 11/10/17 11:11 16 MG Famotidine (Pepcid Tab) 20 mg NOW ONCE PO 11/10/17 10:45 11/10/17 10:46 DC 11/10/17 11:10 20 MG Fentanyl Citrate (Fentanyl Inj) 75 mcg NOW ONCE IV 11/10/17 11:30 11/10/17 11:31 DC 11/10/17 11:37 75 MCG ED Course 1025: The patient was evaluated in room B12B. A complete history and physical exam was performed. 1210: I updated the patient. He does want to do the MRI. He is resting comfortably. 1221: I reevaluated the patient. Discussed results and discharge instructions: He verbalized understanding and agreement. The patient is ready for discharge. Medical Decision The patient is a 72 year old white male with a past medical history of back surgery, COPD, high cholesterol who presents to the ED with a cc of right sided back pain beginning a week ago Nursing notes reviewed. Ancillary studies and prior records reviewed. Differential diagnosis: Etiologies such as musculoskeletal, disc herniation, fracture, aortic disease, metastatic disease, cord compression, discitis, infection, renal colic, gastrointestinal, acute exacerbation of chronic back pain, sciatica, cauda equina, as well as others were entertained. Patient was seen and evaluated the bedside. Patient has had a prior insertion of corinna and screws in the lower lumbar spine performed by Dr. Park with what may have been a revision almost a year prior. Patient denies any fevers or chills. Patient denies any history of cancer or unexplained weight loss. Patient denies any IV drug abuse. Patient also denies any recent trauma, saddle anesthesia, bowel or bladder incontinence, numbness, tingling, or weakness. Patient's exam does not show any acute focal deficits. Patient does have some mild decreased hip flexion but this is secondary to pain. Patient only has mild right-sided paraspinal discomfort as well as a positive straight leg raise. Patient did have a recent lumbar spine film and the patient does have follow-up along with an MRI of the lumbar spine that is ordered for next month prior to seeing Dr. Park. I did discuss with the patient that we could obtain the MRI today however the patient has declined. I do not believe he needs it as his pain is improved and he looks much more comfortable. Patient was given a Medrol Dosepak and told to continue his pain medication at home and to follow- up with Dr. Park. Patient was deemed suitable for outpatient follow-up and treatment at this time. Patient was given strict follow-up, discharge, and return precautions. All questions were answered. Patient was deemed suitable for outpatient follow-up at this time. Patient agreed with the plan of care and was safely discharged home. Medication Reconcilliation Current Medication List: was personally reviewed by me Blood Pressure Screening Patient's blood pressure: Normal blood pressure Impression Primary Impression: Sciatica Additional Impression: Back pain Scribe Attestation The scribe's documentation has been prepared under my direction and personally reviewed by me in its entirety. I confirm that the note above accurately reflects all work, treatment, procedures, and medical decision making performed by me. Departure Information Dispostion Home / Self-Care Prescriptions Methylprednisolone (MEDROL DOSEPAK) 4 Mg Shlomo 1 PKT PO UD for 6 Days, #1 PKT Prov: Shin Porter M.D. 11/10/17 Referrals Urbano Bethea PA-C (PCP) Forms HOME CARE DOCUMENTATION FORM, IMPORTANT VISIT INFORMATION Patient Instructions Back Pain Relieve, Low Back Pain Self Care, My [facility] Additional Instructions Please return to the emergency department if you have worsening or recurrent symptoms not amenable to at-home treatment. Please call for a follow-up appointment with her primary care physician. Please take your medications as prescribed. If you have other concerns and/or complaints please feel free to also call your primary care physician's office or return the ED for further evaluation, management, and treatment. You received narcotic or benzodiazepene medication while in the emergency room today. This is an addictive medication that may cause drowziness as well as constipation. Do not drive, operate heavy machinery, or drink alcohol under the influence of this medication. You may take tylenol 650 mg every 6 hours as needed for pain/fever unless told by your physician to not take it or have liver problems. Take your medications as prescribed. Please take your steroids preferably in the morning and with food as they may cause some upset stomach and cause you to be very awake and alert. Please also consider taking Pepcid 20 mg twice daily to help avoid GI upset. You have been examined and treated today on an emergency basis only. This is not a substitute for, or an effort to provide, complete comprehensive medical care. It is impossible to recognize and treat all injuries or illnesses in a single emergency department visit. It is therefore important that you follow up closely with [facility], your PCP, and/or your specialist(s). Call as soon as possible for an appointment. Thank you for your time and consideration. I look forward to speaking with you again soon. Please don't hesitate to call us if you have any questions. Problem Qualifiers
[2017-11-10] MEDS ORDERED: FENTANYL CITRATE INJ 50 MCG/1 ML 2 ML VIAL IV ONE (11:30)
[2017-11-10] MEDS ORDERED: METH4PAK PO (12:22)
[2017-11-10 12:41] VITALS: BP 116/62; PULSE 54; O2SAT 96
== END 2017-11-10 12:42 | disposition home or self-care (01) ==
LOC: C.EDB 10:16
DX: M54.31 Sciatica, right side (principal); M48.062 Spinal stenosis, lumbar region with neurogenic claudication; E78.5 Hyperlipidemia, unspecified; J44.9 Chronic obstructive pulmonary disease, unspecified; F17.200 Nicotine dependence, unspecified, uncomplicated; Z79.899 Other long term (current) drug therapy; Z79.51 Long term (current) use of inhaled steroids; Z88.1 Allergy status to other antibiotic agents; Z88.5 Allergy status to narcotic agent